=== PATIENT | male | born 1955 | race Two or more races ===

== ENCOUNTER 2024-11-19 02:40 | Inpatient (IN) | payer OTHER ==
[~2024-11-19] VITALS: Ht 170.2 cm; Wt 62.9 kg
--- NOTE | 2024-11-19 05:37 | ED.PDOC ---
History of Present Illness HPI Comments 69-year-old male brought in by EMS presents with a chief complaint of ulcers to bilateral legs, bilateral foot pain. 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 Patient has not seen a doctor for these and is not currently on antibiotics. Patient mentions that he called 911 because he has not been able to walk for the past 3 days due foot pain. Patient reports history of hypertension, diabetes, smoking, hyperlipidemia. He states he is not taking any medications at this time. Chief Complaint: Lower Extremity Time Seen by MD: 05:25 Reviewed Notes: Medications, Allergies Allergies: Coded Allergies: NO KNOWN ALLERGIES (Unverified , 11/19/24) Information Source: Patient Mode of Arrival: EMS Severity: Moderate Timing: Days Duration: Since onset Prehospital treatment: Facilities Officer Vital Signs Vital Signs Date Time Temp Pulse Resp B/P (MAP) Pulse Ox O2 Delivery O2 Flow Rate FiO2 11/19/24 09:14 71 15 108/54 11/19/24 06:32 98 11/19/24 06:01 97.6 97.6 Physical Exam General: Awake, alert and oriented. Patient is unkempt Skin: Skin in warm, dry and intact. Appropriate color for ethnicity. HEENT: The head is normocephalic and atraumatic. Conjunctivae are clear without exudates or hemorrhage. Sclera is non-icteric. EOM are intact. No signs of nystagmus. Eyelids are normal in appearance without swelling or lesions. Oral mucosa is pink and moist Neck: The neck is supple with normal range of motion. No JVD. Cardiac: Heart rate and rhythm are normal. No murmurs, gallops, or rubs are auscultated. Respiratory: No signs of respiratory distress. Lung sounds are clear in all lobes bilaterally without rales, rhonchi, or wheezes. Abdominal: Abdomen is soft, non-tender without distention. Bowel sounds are present and normoactive in all four quadrants. Extremities: Right lower extremity: Open wound with a purulent base, multiple ulcerations over thigh. Right foot: Left toe appears chronic. DP pulse nonpalpable. Foot is erythematous, tender to palpation. Toes are pale. Delayed capillary refill. Left lower extremity: Open wound with a purulent base, multiple ulcerations over thigh Left foot: Good DP pulse. Normal capillary refill. Neurological: The patient is awake, alert and oriented to person, place, and time with normal speech. Speech is clear. There is no facial asymmetry. Psychiatric: Appropriate mood and affect. Good judgement and insight. Review of Systems: As stated in HPI Past Medical History PAST MEDICAL HISTORY: DM, HTN Past Medical History (Other): Neuropathy Surgical History: Denies all surgeries Family History Family History: Reviewed,noncontributory to illness Social History Smoker: Cigar Alcohol: Denies ETOH Use Drugs: Heroin Lives In: Home Was a procedure done? Was a procedure done?: No Differential Dx Considerations may include: Cellulitis, abscess, arterial occlusion X-Ray, Labs, Meds, VS Vital Signs Date Time Temp Pulse Resp B/P (MAP) Pulse Ox O2 Delivery O2 Flow Rate FiO2 11/19/24 09:14 71 15 108/54 11/19/24 06:32 74 10 92/57 (69) 98 11/19/24 06:01 97.6 73 12 103/60 (74) 97 97.6 11/19/24 05:35 98.3 86 13 90/55 (67) 99 98.3 11/19/24 02:48 98.3 85 24 118/70 (86) 95 98.3 Lab Test 11/19/24 10:00 11/19/24 06:30 Range/Units White Blood Count 7.4 8.6 4.4-10.8 10^3/uL Red Blood Count 4.10 L 4.82 4.5-5.90 10^6/uL Hemoglobin 8.4 L 9.7 L 13.5-17.5 g/dL Hematocrit 26.7 #L 31.4 L 41.0-53.0 % Mean Corpuscular Volume 65.1 L 65.1 L 80.0-100.0 fL Mean Corpuscular Hemoglobin 20.4 L 20.2 L 28.0-32.0 pg Mean Corpuscular Hemoglobin Concent 31.3 L 31.0 L 32.0-36.0 g/dL Red Cell Distribution Width 20.9 H 21.0 H 11.8-14.3 % Platelet Count 282 344 140-450 10^3/uL Mean Platelet Volume 6.7 L 6.7 L 6.9-10.8 fL Neutrophils (%) (Auto) 80.2 H 81.8 H 37.0-80.0 % Lymphocytes (%) (Auto) 12.8 11.5 10.0-50.0 % Monocytes (%) (Auto) 6.0 5.8 0.0-12.0 % Eosinophils (%) (Auto) 0.5 0.5 0.0-7.0 % Basophils (%) (Auto) 0.5 0.4 0.0-2.0 % Neutrophils # (Auto) 6.0 7.0 1.6-8.6 10 ^3/uL Lymphocytes # (Auto) 1.0 1.0 0.4-5.4 10 ^3/uL Monocytes # (Auto) 0.4 0.5 0-1.3 10 ^3/uL Eosinophils # (Auto) 0 0 0-0.8 10 ^3/uL Basophils # (Auto) 0 0 0-0.2 10 ^3/uL Nucleated Red Blood Cells 0.0 0.1 % Platelet Estimate Pending Prothrombin Time Pending 10.9 9.3-11.8 sec Prothrombin Time INR Pending 1.03 0.9-1.15 Activated Partial Thromboplast Time Pending Sodium Level 134 L 136-145 mmol/L Potassium Level 3.1 L 3.5-5.1 mmol/L Chloride Level 103 98-107 mmol/L Carbon Dioxide Level 28 20-31 mmol/L Anion Gap 3 L 5-15 Blood Urea Nitrogen 13 9-23 mg/dL Creatinine 1.09 0.700-1.30 mg/dL Glomerular Filtration Rate Calc 73 >90 mL/min BUN/Creatinine Ratio 11.9 10.0-20.0 Serum Glucose 98 74-106 mg/dL Lactic Acid Level 1.2 0.4-2.0 mmol/L Calcium Level 8.7 8.7-10.4 mg/dL Total Bilirubin 0.3 0.2-1.0 mg/dL Aspartate Amino Transferase (AST) 13 13-40 U/L Alanine Aminotransferase (ALT) < 9 7-40 U/L Alkaline Phosphatase 80 46-116 U/L Total Protein 7.0 5.7-8.2 g/dL Albumin 3.0 L 3.2-4.8 g/dL Current Medications Medications (Trade) Dose Ordered Sig/Anny Route Start Time Stop Time Status Last Admin Sodium Chloride 1,000 ml @ 1,000 mls/hr Q1H ONCE IV 11/19/24 06:15 11/19/24 07:14 DC 11/19/24 08:56 Sodium Chloride 1,000 ml @ 130 mls/hr [id number] ONCE IV 11/19/24 06:15 11/19/24 13:56 11/19/24 08:56 Ceftriaxone Sodium 50 ml @ 100 mls/hr ONCE ONCE IV 11/19/24 08:30 11/19/24 08:59 DC 11/19/24 08:46 Vancomycin HCl 200 ml @ 200 mls/hr ONCE ONCE IV 11/19/24 08:30 11/19/24 09:29 DC 11/19/24 09:58 Ondansetron HCl (Zofran) 4 mg ONCE ONCE IV 11/19/24 09:00 11/19/24 09:01 DC 11/19/24 09:11 Morphine Sulfate 4 mg ONCE ONCE IV 11/19/24 09:00 11/19/24 09:01 DC 11/19/24 09:14 Time of 1ST Reevaluation: 05:55 Reevaluation 1ST: Unchanged Patient Education/Counseling: Need For Follow Up Family Education/Counseling: No Family Present Departure 1 Departure Time of Disposition: 10:34 (anshul [address] Dr , ok to admit to [facility].Patient presents with concern for sepsis and multiple abscesses in his legs and decreased arterial flow on CTA. Vascular surgery was consulted , patient was given antibiotics and started on heparin drip. We will admit patient for further workup and expert consultation) Impression: Primary Impression: Uncontrolled diabetes mellitus Qualified Codes: E11.65 - Type 2 diabetes mellitus with hyperglycemia Additional Impressions: Decreased pulses in feet Multiple abscesses of both legs Disposition: ADMITTED INPATIENT Admit to: [facility] Condition: Guarded Critical Care Note Critical Care Time?: Yes Critical care comment: Concern for arterial occlusion Authorized and Performed by: Jerica Banks MD Total critical care time: Approximately 44 minutes Due to a high probability of clinically significant, life threatening deterioration, the patient required my highest level of preparedness to intervene emergently and I personally spent this critical care time directly and personally managing the patient. This critical care time included obtaining a history; examining the patient; pulse oximetry; ordering and review of studies; arranging urgent treatment with development of a management plan; evaluation of patient's response to treatment; frequent reassessment; and, discussions with other providers. This critical care time was performed to assess and manage the high probability of imminent, life-threatening deterioration that could result in multi-organ failure. It was exclusive of separately billable procedures and treating other patients and teaching time. Please see my other sections and the rest of the note for further information on patient assessment and treatment. Stability Stability form required: No I personally scribed for GABRIELA RUBALCAAV MD ([email or web address]) on 11/19/24 at 05:37. Electronically submitted by Nura Johnson ([email or web address]). GABRIELA RUBALCAVA MD Nov 19, 2024 05:37 JERICA BANKS MD Nov 19, 2024 10:36
[2024-11-19 06:53] LABS: Basophils # (auto) 0 10 ^3/uL (0-0.2); Basophils % (auto) 0.4 % (0.0-2.0); Eosinophils # (auto) 0 10 ^3/uL (0-0.8); Eosinophils % (auto) 0.5 % (0.0-7.0); Hematocrit 31.4 % (41.0-53.0); Hemoglobin 9.7 g/dL (13.5-17.5); Lymphocytes % (auto) 11.5 % (10.0-50.0); Mean Corpuscular Hemoglobin 20.2 pg (28.0-32.0); Mean Corpuscular Volume 65.1 fL (80.0-100.0); Monocytes # (auto) 0.5 10 ^3/uL (0-1.3); Monocytes % (auto) 5.8 % (0.0-12.0); Neutrophils % (auto) 81.8 % (37.0-80.0); Nucleated Red Blood Cells % 0.1 %; Platelet Count (auto) 344 10^3/uL (140-450); Red Blood Cells 4.82 10^6/uL (4.5-5.90); White Blood Cell 8.6 10^3/uL (4.4-10.8)
[2024-11-19 06:58] LABS: INR 1.03 (0.9-1.15); Prothrombin Time 10.9 sec (9.3-11.8)
[2024-11-19 07:02] LABS: Alkaline Phosphatase 80 U/L (46-116); Anion Gap 3 (5-15); Aspartate Aminotransferase 13 U/L (13-40); BUN/Creatinine Ratio 11.9 (10.0-20.0); Bilirubin, Total 0.3 mg/dL (0.2-1.0); Blood Urea Nitrogen 13 mg/dL (9-23); Calcium 8.7 mg/dL (8.7-10.4); Carbon Dioxide 28 mmol/L (20-31); Chloride 103 mmol/L (98-107); Glucose 98 mg/dL (74-106)
[2024-11-19 07:04] LABS: Potassium 3.1 mmol/L (3.5-5.1); Sodium 134 mmol/L (136-145)
[2024-11-19 07:22] LABS: Alanine Aminotransferase < 9 U/L (7-40)
[2024-11-19] MEDS: VANCOMYCIN 1GM/200ML PM 200 ML IV ONE ×2 (08:38→09:58)
[2024-11-19] MEDS: cefTRIAXone 1GM/50ML D5W 50 ML IV ONE ×2 (08:39→08:46)
[2024-11-19] MEDS: HEPARIN SODIUM (PORCINE) 5000 UNITS/ML 1ML VIAL IV ONE ×2 (08:55→10:00)
[2024-11-19] MEDS: SODIUM CHLORIDE 0.9% 1,000 ML IV ONE ×3 (08:56→10:41)
[2024-11-19] MEDS: ONDANSETRON HCL 4 MG/2 ML VIAL IV ONE (09:11)
[2024-11-19] MEDS: MORPHINE SULFATE 4 MG/ML SYR/VIAL IV ONE (09:14)
--- NOTE | 2024-11-19 09:45 | DVH ---
Examination: CT CT ANGIO LOWER EXTREMITY CLINICAL HISTORY: Rule out acute limb ischemia, peripheral arterial disease Comparison: None Technique: Using helical technique, CT data from the infrarenal abdominal aorta through the toes was obtained during rapid IV contrast infusion. The examination was timed to the arterial system to gener ate a CT angiographic study. 3D images were generated at an independent work station. Dose reduction techniques included automated exposure control. Radiation Dose Information: CT Dose: CTDI volume is 7.08 mGy. Dose-length product is 886.9 mGy*cm Findings: Vascular: Vascular atherosclerotic calcifications are present of the aorta and its main branches. Inferior mesenteric artery is patent. Right lower extremity: Common iliac artery: Patent External iliac artery: Patent Internal iliac artery: Patent Common femoral artery: Patent Profunda femoral artery: Patent Superficial femoral artery: Patent Popliteal artery: Patent Anterior tibial artery: Patent Peroneal tibial trunk: Nonvisualization of flow Peroneal artery: Nonvisualization of flow Posterior tibial artery: Nonvisualization of flow Dorsalis pedis artery: Patent Left lower extremity: Common iliac artery: Patent External iliac artery: Patent Internal iliac artery: Patent Common femoral artery: Patent Profunda femoral artery: Patent Superficial femoral artery: Patent Popliteal artery: Patent Anterior tibial artery: Nonvisualization of flow Peroneal tibial trunk: Nonvisualization of flow Peroneal artery: Nonvisualization of flow Posterior tibial artery: Nonvisualization of flow Dorsalis pedis artery: Nonvisualization of flow Lymph nodes: No lymphadenopathy. Peritoneal cavity and surface: No free fluid. No pneumoperitoneum. Soft Tissues: Diffuse soft-tissue edema is present throughout the bilateral lower extremities. There are multiple bilateral abscesses and pockets of fluid and gas throughout the superficial subcutaneous soft-tissue of the bilateral thighs and around the right knee. Reproductive Organs: Normal. Bones: No acute fracture or aggressive osseous lesion. Left hip surgical hardware. Impression: Diffuse soft-tissue edema is present throughout the bilateral lower extremities. There are multiple b ilateral ill-defined abscesses and ill-defined pockets of fluid and gas throughout the superficial nugent bcutaneous soft-tissue of the bilateral thighs and around the right knee ([id number]-left. Fi ndings are suspicious for multifocal infection. Clinical correlation advised. Suboptimal visualization of arterial runoff in the bilateral lower extremity secondary to extensive a therosclerotic plaque and suboptimal timing of contrast bolus. There is nonvisualization of flow in t he right peroneal artery and right posterior tibial artery. Faint flow is present in the right dorsal is pedis artery. There is nonvisualization of flow in the left peroneal artery, posterior tibial artery and dorsalis p ada.
[2024-11-19 10:14] LABS: Basophils # (auto) 0 10 ^3/uL (0-0.2); Basophils % (auto) 0.5 % (0.0-2.0); Eosinophils # (auto) 0 10 ^3/uL (0-0.8); Mean Corpuscular Hemoglobin 20.4 pg (28.0-32.0); Monocytes # (auto) 0.4 10 ^3/uL (0-1.3); White Blood Cell 7.4 10^3/uL (4.4-10.8)
[2024-11-19 10:16] LABS: Eosinophils % (auto) 0.5 % (0.0-7.0); Hematocrit 26.7 % (41.0-53.0); Hemoglobin 8.4 g/dL (13.5-17.5); Lymphocytes % (auto) 12.8 % (10.0-50.0); Mean Corpuscular Hgb Conc. 31.3 g/dL (32.0-36.0); Mean Corpuscular Volume 65.1 fL (80.0-100.0); Neutrophils % (auto) 80.2 % (37.0-80.0); Platelet Count (auto) 282 10^3/uL (140-450)
[2024-11-19 10:17] LABS: Red Cell Distribution Width 20.9 % (11.8-14.3)
[2024-11-19 10:26] LABS: INR 1.03 (0.9-1.15); Partial Thromboplastin Time 31.1 SEC (24.5-34.5); Prothrombin Time 10.9 sec (9.3-11.8)
[2024-11-19 10:47] LABS: Anisocytosis Slight; Hypochromia Marked; Platelet Estimate Adequate
[2024-11-19] MEDS ORDERED: ONDANSETRON HCL 4 MG/2 ML VIAL IV PRN ×2 (11:45→14:00)
[2024-11-19] MEDS ORDERED: DOCUSATE SOD 100 MG CAP PO PRN (11:45)
[2024-11-19] MEDS ORDERED: NITROGLYCERIN 0.4 MG SL TAB SL PRN (11:45)
[2024-11-19] MEDS ORDERED: GLIP5TAB21 PO (11:48)
[2024-11-19] MEDS ORDERED: ROSU20TA56 PO (11:48)
[2024-11-19] MEDS ORDERED: LISI10TA34 PO (11:48)
[2024-11-19] MEDS ORDERED: DULO1CAP5 PO (11:48)
[2024-11-19] MEDS ORDERED: METF-370 PO (11:48)
[2024-11-19] MEDS ORDERED: VANCOMYCIN PER PHARMACY 0 MG IV SCH (12:00)
--- NOTE | 2024-11-19 12:19 | DVHCONRES ---
Date Seen: Nov 19, 2024 Resident Creating Document: HAY SEGOVIA Jr., MD Referring Physician er Reason for Consultation Right thigh abscess, peripheral vascular disease, right ischemic 5th toe History of Present Illness 69-year-old male brought in by EMS presents with a chief complaint of ulcers to bilateral legs, bilateral foot pain. 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 Patient has not seen a doctor for these and is not currently on antibiotics. Patient mentions that he called 911 because he has not been able to walk for the past 3 days due foot pain. Patient reports history of hypertension, diabetes, smoking, hyperlipidemia. He states he is not taking any medications at this time. 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 He also has neuropathy in the feet. He has a discolored right toe which is very painful. Past Medical History Heroin abuse hypertension, diabetes, smoking, hyperlipidemia. Allergies: Coded Allergies: NO KNOWN ALLERGIES (Unverified , 11/19/24) Home Meds Reported Medications Metformin Hydrochloride (Metformin Hcl) 500 Mg Tab, 1 TAB PO BID 11/19/24 Lisinopril (Lisinopril) 10 Mg Tab, 1 TAB PO DAILY 11/19/24 Glipizide (Glipizide) 5 Mg Tab, 1 TAB PO DAILY 11/19/24 Duloxetine HCl (Duloxetine HCl) 30 Mg Cap, 2 CAP PO DAILY 11/19/24 Rosuvastatin Calcium (Rosuvastatin Calcium) 20 Mg Tab, 1 TAB PO HS 11/19/24 Current Medications Current Medications Medications (Trade) Dose Ordered Sig/Anny Route PRN Reason Start Time Stop Time Status Last Admin Heparin Sodium/ Dextrose 250 ml @ 11.016 mls/ hr [id number] IV 11/19/24 10:00 UNV Sodium Chloride 1,000 ml @ 75 mls/hr [id number] IV 11/19/24 11:45 UNV Acetaminophen/ Hydrocodone Bitart ([place] 5/325MG Tab) 1 tab Q4HP PRN PO MODERATE PAIN (4-6 PAIN SCALE) 11/19/24 11:45 UNV Ondansetron HCl (Zofran) 4 mg Q4HP PRN IV NAUSEA / VOMITING 11/19/24 11:45 UNV Docusate Sodium (Colace Capsule) 100 mg BIDPRN PRN PO FOR CONSTIPATION 11/19/24 11:45 UNV Acetaminophen (Tylenol Tablet) 650 mg Q6HP PRN PO PAIN SCALE 1-3 OR TEMP>100.4 11/19/24 11:45 UNV Morphine Sulfate 2 mg Q4HPRN PRN IV SEVERE PAIN (7-10 PAIN SCALE) 11/19/24 11:45 UNV Nitroglycerin (Ntrostat Sublingual) 0.4 mg Q5MINP PRN SL FOR CHEST PAIN 11/19/24 11:45 UNV Morphine Sulfate 2 mg Q30M PRN IV FOR CHEST PAIN 11/19/24 11:45 UNV Duloxetine HCl (Cymbalta Capsule) 60 mg DAILY PO 11/20/24 10:00 UNV Glipizide (Glucotrol Tablet) 5 mg DAILY PO 11/20/24 10:00 UNV Patient Own Medication 1 tab DAILY PO 11/20/24 10:00 11/19/24 12:05 DC Patient Own Medication 1 tab HS PO 11/19/24 22:00 UNV Vancomycin HCl 0 ml @ 0 mls/hr UD IV 11/19/24 12:00 UNV Cefepime HCl 50 ml @ 12.5 mls/hr Q12HR IV 11/19/24 22:00 UNV Review of Systems All systems reviewed otherwise negative what is in HPI. Vital Signs Vital Signs Date Time Temp Pulse Resp B/P (MAP) Pulse Ox O2 Delivery O2 Flow Rate FiO2 11/19/24 11:38 97.1 65 12 126/51 (76) 96 97.1 Physical Exam Head eyes ears nose and throat exam eyes are nonicteric conjunctiva is pink neck was supple no JVD no lymphadenopathy no carotid bruits lungs are clear to auscultation heart was regular rate and rhythm abdomen is soft nontender with no pulsatile abdominal masses. Lower extremities has multiple track wounds on the bilateral thighs. With subcutaneous gas of the right thigh and purulent drainage as well. His right 5th toe is ischemic. He has diminished pulses in both lower extremities. Labs/Diagnostic Data Labs Test 11/19/24 10:00 11/19/24 06:30 Range/Units White Blood Count 7.4 4.4-10.8 10^3/uL Red Blood Count 4.10 L 4.5-5.90 10^6/uL Hemoglobin 8.4 L 13.5-17.5 g/dL Hematocrit 26.7 #L 41.0-53.0 % Mean Corpuscular Volume 65.1 L 80.0-100.0 fL Mean Corpuscular Hemoglobin 20.4 L 28.0-32.0 pg Mean Corpuscular Hemoglobin Concent 31.3 L 32.0-36.0 g/dL Red Cell Distribution Width 20.9 H 11.8-14.3 % Platelet Count 282 140-450 10^3/uL Mean Platelet Volume 6.7 L 6.9-10.8 fL Neutrophils (%) (Auto) 80.2 H 37.0-80.0 % Lymphocytes (%) (Auto) 12.8 10.0-50.0 % Monocytes (%) (Auto) 6.0 0.0-12.0 % Eosinophils (%) (Auto) 0.5 0.0-7.0 % Basophils (%) (Auto) 0.5 0.0-2.0 % Neutrophils # (Auto) 6.0 1.6-8.6 10 ^3/uL Lymphocytes # (Auto) 1.0 0.4-5.4 10 ^3/uL Monocytes # (Auto) 0.4 0-1.3 10 ^3/uL Eosinophils # (Auto) 0 0-0.8 10 ^3/uL Basophils # (Auto) 0 0-0.2 10 ^3/uL Nucleated Red Blood Cells 0.0 % Platelet Estimate Adequate Hypochromasia (manual) Marked Poikilocytosis (manual) Slight Anisocytosis (manual) Slight Microcytosis Marked Schistocytes Few Prothrombin Time 10.9 9.3-11.8 sec Prothrombin Time INR 1.03 0.9-1.15 Activated Partial Thromboplast Time 31.1 24.5-34.5 SEC Sodium Level 134 L 136-145 mmol/L Potassium Level 3.1 L 3.5-5.1 mmol/L Chloride Level 103 98-107 mmol/L Carbon Dioxide Level 28 20-31 mmol/L Anion Gap 3 L 5-15 Blood Urea Nitrogen 13 9-23 mg/dL Creatinine 1.09 0.700-1.30 mg/dL Glomerular Filtration Rate Calc 73 >90 mL/min BUN/Creatinine Ratio 11.9 10.0-20.0 Serum Glucose 98 74-106 mg/dL Lactic Acid Level 1.2 0.4-2.0 mmol/L Calcium Level 8.7 8.7-10.4 mg/dL Total Bilirubin 0.3 0.2-1.0 mg/dL Aspartate Amino Transferase (AST) 13 13-40 U/L Alanine Aminotransferase (ALT) < 9 7-40 U/L Alkaline Phosphatase 80 46-116 U/L Total Protein 7.0 5.7-8.2 g/dL Albumin 3.0 L 3.2-4.8 g/dL Examination: CT CT ANGIO LOWER EXTREMITY CLINICAL HISTORY: Rule out acute limb ischemia, peripheral arterial disease Comparison: None Technique: Using helical technique, CT data from the infrarenal abdominal aorta through the toes was obtained during rapid IV contrast infusion. The examination was timed to the arterial system to generate a CT angiographic study. 3D images were generated at an independent work station. Dose reduction techniques included automated exposure control. Radiation Dose Information: CT Dose: CTDI volume is 7.08 mGy. Dose-length product is 886.9 mGy*cm Findings: Vascular: Vascular atherosclerotic calcifications are present of the aorta and its main branches. Inferior mesenteric artery is patent. Right lower extremity: Common iliac artery: Patent External iliac artery: Patent Internal iliac artery: Patent Common femoral artery: Patent Profunda femoral artery: Patent Superficial femoral artery: Patent Popliteal artery: Patent Anterior tibial artery: Patent Peroneal tibial trunk: Nonvisualization of flow Peroneal artery: Nonvisualization of flow Posterior tibial artery: Nonvisualization of flow Dorsalis pedis artery: Patent Left lower extremity: Common iliac artery: Patent External iliac artery: Patent Internal iliac artery: Patent Common femoral artery: Patent Profunda femoral artery: Patent Superficial femoral artery: Patent Popliteal artery: Patent Anterior tibial artery: Nonvisualization of flow Peroneal tibial trunk: Nonvisualization of flow Peroneal artery: Nonvisualization of flow Posterior tibial artery: Nonvisualization of flow Dorsalis pedis artery: Nonvisualization of flow Lymph nodes: No lymphadenopathy. Peritoneal cavity and surface: No free fluid. No pneumoperitoneum. Soft Tissues: Diffuse soft-tissue edema is present throughout the bilateral lower extremities. There are multiple bilateral abscesses and pockets of fluid and gas throughout the superficial subcutaneous soft-tissue of the bilateral thighs and around the right knee. Reproductive Organs: Normal. Bones: No acute fracture or aggressive osseous lesion. Left hip surgical hardware. Impression: Diffuse soft-tissue edema is present throughout the bilateral lower extremities. There are multiple bilateral ill-defined abscesses and ill-defined pockets of fluid and gas throughout the superficial subcutaneous soft-tissue of the bilateral thighs and around the right knee ([id number]-left. Findings are suspicious for multifocal infection. Clinical correlation advised. Suboptimal visualization of arterial runoff in the bilateral lower extremity secondary to extensive atherosclerotic plaque and suboptimal timing of contrast bolus. There is nonvisualization of flow in the right peroneal artery and right posterior tibial artery. Faint flow is present in the right dorsalis pedis artery. There is nonvisualization of flow in the left peroneal artery, posterior tibial artery and dorsalis pedis. Assessment Right thigh abscess, severe peripheral vascular disease, right ischemic 5th toe Plan operative debridement of the right thigh today. Plan for right leg arteriogram possible endovascular revascularization on November 20, 2024. Based on the procedure most likely we will need toe amputation in the near future. Patient understands the risks benefits of the procedure and willing to proceed. Plan/Recommendation Right thigh abscess, severe peripheral vascular disease, right ischemic 5th toe Plan operative debridement of the right thigh today. Plan for right leg arteriogram possible endovascular revascularization on November 20, 2024. Based on the procedure most likely we will need toe amputation in the near future. Patient understands the risks benefits of the procedure and willing to proceed. Plan discussed with: Patient HAY SEGOVIA Jr., MD Nov 19, 2024 12:19
[2024-11-19] MEDS: MORPHINE SULFATE INJ 2 MG/ml SYRG IV PRN (12:20)
[2024-11-19 12:21] VITALS: PULSE 63; RESP 9; O2SAT 97
[2024-11-19] MEDS ORDERED: KETAMINE 50mg/ML 1ml syringe ONE (12:22)
[2024-11-19] MEDS ORDERED: fentaNYL CITRATE 100 MCG/2 ML VL ONE (12:22)
[2024-11-19] MEDS ORDERED: LIDOCAINE 1% INJ PF 5ML AMP ONE (12:22)
[2024-11-19] MEDS ORDERED: GLYCOPYRROLATE 0.2 MG/ML 1ML VIAL ONE (12:22)
[2024-11-19] MEDS ORDERED: ONDANSETRON HCL 4 MG/2 ML VIAL ONE (12:22)
[2024-11-19] MEDS ORDERED: KETOROLAC TROMETH 30 MG/ML 1ML VIAL ONE (12:22)
[2024-11-19] MEDS ORDERED: PROPOFOL 10 MG/ML 20 ML IV ONE (12:22)
[2024-11-19] MEDS ORDERED: DexAMETHasone SOD PHOS 10MG/1ML VIAL INJ ONE (12:22)
[2024-11-19 12:26] LABS: Urine Bacteria None Seen /hpf (None Seen)
[2024-11-19] MEDS: ceFAZolin 1GM VL ONE (12:28)
--- NOTE | 2024-11-19 12:34 | DVHHP2 ---
History of Present Illness Reason for Visit: Lower extremity pain History of Present Illness Parveen Elam is a 69-year-old male with past medical history of hypertension, hyperlipidemia, diabetes, and peripheral neuropathy, who came in due to bilateral lower extremity pain. He has a history of peripheral neuropathy and states the pain from his neuropathy is why he came to the hospital. He states that he usually walks and cares for himself, but he has not been able to ambulate the last 3-4 days due to pain. Patient is a daily heroin user for years. He has multiple abscess' on bilateral thighs from injection sites. Two toes on his right foot are becoming necrotic from lack of blood flow. CT scan completed by ER shows peripheral artery occlusions as well as multiple abscess with gas. He has bilateral open wounds on his thighs, and purulent drainage from wound to right thigh. Vascular surgery has been consulted by ER. I spoke with vascular surgery, he went and saw the patient and will be taking him to OR today to an I&D of right thigh. He plans on taking to sanitation laborer on Monday for angiogram, and OR on for toe amputation. Cardiovascular: HTN, hyperipidemia ENTREPRENEUR: Periperal neuropathy Endocrine: Diabetes Past Surgical History: Other (Left leg) Smoke: <1 pack per day (cigars) ALCOHOL: none Drugs: Heroin Lives: Alone (states he has a friend who helps him) Domestic Violence: Neg Review of Systems Constitutional: No: Fever, Chills, Sweats, Weakness, Malaise, Other Eyes: No: Pain, Vision change, Conjunctivae inflammation, Eyelid inflammation, Other, Redness ENT: No: Ear pain, Ear discharge, Nose pain, Nose discharge, Nose congestion, Mouth pain, Mouth swelling, Throat pain, Throat swelling, Other Respiratory: No: Cough, Dry, Shortness of breath, SOB with excertion, Wheezing, Hemoptysis, Pleuritic Pain, Sputum, Wheezing, Other Cardiovascular: No: Chest Pain, Palpitations, Orthopnea, Paroxysmal Noc. Dyspnea, Edema, Lt Headedness, Other Gastrointestinal: No: Nausea, Vomiting, Abdominal Pain, Diarrhea, Constipation, Melena, Hematochezia, Other Genitourinary: No Dysuria, No Frequency, No Incontinence, No Hematuria, No Retention, No Other Musculoskeletal: leg pain (bilateral), foot pain (bilateral); No: other, neck pain, shoulder pain, arm pain, back pain, hand pain Skin: No: Rash, Lesions, Jaundice, Bruising, Other Neurological: No: Weakness, Numbness, Incoordination, Change in speech, Confusion, Seizures, Other Allergies: Coded Allergies: NO KNOWN ALLERGIES (Unverified , 11/19/24) Medications Current Medications Medications Dose Ordered Sig/Anny Route Start Time Stop Time Status Last Admin Dose Admin Heparin Sodium/ Dextrose 250 ml @ 11.016 mls/ hr [id number] IV 11/19/24 10:00 UNV Sodium Chloride 1,000 ml @ 75 mls/hr [id number] IV 11/19/24 11:45 UNV Acetaminophen/ Hydrocodone Bitart 1 tab Q4HP PRN PO 11/19/24 11:45 UNV Ondansetron HCl 4 mg Q4HP PRN IV 11/19/24 11:45 UNV Docusate Sodium 100 mg BIDPRN PRN PO 11/19/24 11:45 UNV Acetaminophen 650 mg Q6HP PRN PO 11/19/24 11:45 UNV Morphine Sulfate 2 mg Q4HPRN PRN IV 11/19/24 11:45 UNV Nitroglycerin 0.4 mg Q5MINP PRN SL 11/19/24 11:45 UNV Morphine Sulfate 2 mg Q30M PRN IV 11/19/24 11:45 UNV Duloxetine HCl 60 mg DAILY PO 11/20/24 10:00 UNV Glipizide 5 mg DAILY PO 11/20/24 10:00 UNV Patient Own Medication 1 tab DAILY PO 11/20/24 10:00 UNV Patient Own Medication 1 tab HS PO 11/19/24 22:00 UNV Exam Vital Signs Vital Signs Date Time Temp Pulse Resp B/P (MAP) Pulse Ox O2 Delivery O2 Flow Rate FiO2 11/19/24 11:38 97.1 65 12 126/51 (62) 96 97.1 General Appearance: Alert, Oriented X3, Cooperative, moderate distress HEENT: Atraumatic, PERRLA Respiratory: Clear to auscultation, Normal air movement Cardiovascular: Regular rate, Normal S1, Normal S2 Abdominal: Normal bowel sounds, Soft, No tenderness Extremities: No clubbing Neuro: Normal speech, Other (states he has not been able to ambulate due to pain for about 3-4 days) Psych/Mental Status: Mental status NL, Mood NL Labs/Xrays Labs Test 11/19/24 10:00 11/19/24 06:30 Range/Units White Blood Count 7.4 4.4-10.8 10^3/uL Red Blood Count 4.10 L 4.5-5.90 10^6/uL Hemoglobin 8.4 L 13.5-17.5 g/dL Hematocrit 26.7 #L 41.0-53.0 % Mean Corpuscular Volume 65.1 L 80.0-100.0 fL Mean Corpuscular Hemoglobin 20.4 L 28.0-32.0 pg Mean Corpuscular Hemoglobin Concent 31.3 L 32.0-36.0 g/dL Red Cell Distribution Width 20.9 H 11.8-14.3 % Platelet Count 282 140-450 10^3/uL Mean Platelet Volume 6.7 L 6.9-10.8 fL Neutrophils (%) (Auto) 80.2 H 37.0-80.0 % Lymphocytes (%) (Auto) 12.8 10.0-50.0 % Monocytes (%) (Auto) 6.0 0.0-12.0 % Eosinophils (%) (Auto) 0.5 0.0-7.0 % Basophils (%) (Auto) 0.5 0.0-2.0 % Neutrophils # (Auto) 6.0 1.6-8.6 10 ^3/uL Lymphocytes # (Auto) 1.0 0.4-5.4 10 ^3/uL Monocytes # (Auto) 0.4 0-1.3 10 ^3/uL Eosinophils # (Auto) 0 0-0.8 10 ^3/uL Basophils # (Auto) 0 0-0.2 10 ^3/uL Nucleated Red Blood Cells 0.0 % Platelet Estimate Adequate Hypochromasia (manual) Marked Poikilocytosis (manual) Slight Anisocytosis (manual) Slight Microcytosis Marked Schistocytes Few Prothrombin Time 10.9 9.3-11.8 sec Prothrombin Time INR 1.03 0.9-1.15 Activated Partial Thromboplast Time 31.1 24.5-34.5 SEC Sodium Level 134 L 136-145 mmol/L Potassium Level 3.1 L 3.5-5.1 mmol/L Chloride Level 103 98-107 mmol/L Carbon Dioxide Level 28 20-31 mmol/L Anion Gap 3 L 5-15 Blood Urea Nitrogen 13 9-23 mg/dL Creatinine 1.09 0.700-1.30 mg/dL Glomerular Filtration Rate Calc 73 >90 mL/min BUN/Creatinine Ratio 11.9 10.0-20.0 Serum Glucose 98 74-106 mg/dL Lactic Acid Level 1.2 0.4-2.0 mmol/L Calcium Level 8.7 8.7-10.4 mg/dL Total Bilirubin 0.3 0.2-1.0 mg/dL Aspartate Amino Transferase (AST) 13 13-40 U/L Alanine Aminotransferase (ALT) < 9 7-40 U/L Alkaline Phosphatase 80 46-116 U/L Total Protein 7.0 5.7-8.2 g/dL Albumin 3.0 L 3.2-4.8 g/dL Examination: CT CT ANGIO LOWER EXTREMITY Findings: Vascular: Vascular atherosclerotic calcifications are present of the aorta and its main branches. Inferior mesenteric artery is patent. Right lower extremity: Common iliac artery: Patent External iliac artery: Patent Internal iliac artery: Patent Common femoral artery: Patent Profunda femoral artery: Patent Superficial femoral artery: Patent Popliteal artery: Patent Anterior tibial artery: Patent Peroneal tibial trunk: Nonvisualization of flow Peroneal artery: Nonvisualization of flow Posterior tibial artery: Nonvisualization of flow Dorsalis pedis artery: Patent Left lower extremity: Common iliac artery: Patent External iliac artery: Patent Internal iliac artery: Patent Common femoral artery: Patent Profunda femoral artery: Patent Superficial femoral artery: Patent Popliteal artery: Patent Anterior tibial artery: Nonvisualization of flow Peroneal tibial trunk: Nonvisualization of flow Peroneal artery: Nonvisualization of flow Posterior tibial artery: Nonvisualization of flow Dorsalis pedis artery: Nonvisualization of flow Lymph nodes: No lymphadenopathy. Peritoneal cavity and surface: No free fluid. No pneumoperitoneum. Soft Tissues: Diffuse soft-tissue edema is present throughout the bilateral lower extremities. There are multiple bilateral abscesses and pockets of fluid and gas throughout the superficial subcutaneous soft-tissue of the bilateral thighs and around the right knee. Reproductive Organs: Normal. Bones: No acute fracture or aggressive osseous lesion. Left hip surgical hardware. Impression: Diffuse soft-tissue edema is present throughout the bilateral lower extremities. There are multiple bilateral ill-defined abscesses and ill-defined pockets of fluid and gas throughout the superficial subcutaneous soft-tissue of the bilateral thighs and around the right knee ([id number]. Findings are suspicious for multifocal infection. Clinical correlation advised. Suboptimal visualization of arterial runoff in the bilateral lower extremity secondary to extensive atherosclerotic plaque and suboptimal timing of contrast bolus. There is nonvisualization of flow in the right peroneal artery and right posterior tibial artery. Faint flow is present in the right dorsalis pedis artery. There is nonvisualization of flow in the left peroneal artery, posterior tibial artery and dorsalis pedis. Assessment/Plan Assessment/Plan Assessment: Multiple abscesses of both legs, Occlusion of peroneal artery, posterior tibial artery and dorsalis pedis, Peripheral artery disease, Hypokalemia, Heroin dependance, Malnutrition, Diabetes, Hypertension, Hyperlipidemia, Peripheral neuropathy, Plan: Admit to Tele, Vascular consult, NPO, Will go to OR today for debridement, Possible sanitation laborer tomorrow, Possible OR Monday for toe amputation, IV hydration, IV antibiotics, Potassium replacement, Manage/Monitor electrolytes closely, Social service consult, Home medications reconciled, Home antihypertensive medication held due to hypotension, Plan discussed with: Patient My Orders Orders - DANIEL AARON Procedure Category Date Status Time Admit ADMIT 11/19/24 Transmitted 11:39 Code Status CODE 11/19/24 Transmitted 11:39 Sodium Chloride 0.9% PHA 11/19/24 Logged 11:45 Hydrocodone-Acet PHA 11/19/24 Logged 5/325mg Tab (Christine 11:45 Ondansetron Hcl PHA 11/19/24 Logged (Zofran) 11:45 Docusate Sodium PHA 11/19/24 Logged Capsule (Colace 11:45 Complete Blood Count LAB 11/20/24 Verified 04:00 Comprehensive LAB 11/20/24 Verified Metabolic Panel 04:00 Npo (Nothing By DIET 11/19/24 Transmitted Mouth) Diet Lunch Echo 2d Mode Cardiac US 11/19/24 Logged DOP 11:39 Condition: Critical KEON 11/19/24 In Process 11:39 Acetaminophen Tablet PHA 11/19/24 Logged (Tylenol Tablet) 11:45 Morphine Sulfate PHA 11/19/24 Logged Injection 11:45 Nitroglycerin PHA 11/19/24 Logged Sublingual (Ntrostat 11:45 Morphine Sulfate PHA 11/19/24 Logged Injection 11:45 Stat Ekg For Chest [facility] 11/19/24 In Process Pain 11:39 Notify Md Of Changes [facility] 11/19/24 In Process From Base 11:39 Computer Support Analyst For [facility] 11/19/24 In Process 24 Hours 11:39 Emergency Dysrhythmia [facility] 11/19/24 In Process Protocol 11:39 Rhythm Strips Once [facility] 11/19/24 In Process Every Shift 11:39 Oxygen By Nasal RT 11/19/24 Transmitted Cannula 11:39 Duloxetine Hcl [facility] 11/20/24 Logged Capsule (Cymbalta 10:00 Glipizide Tablet PHA 11/20/24 Logged (Glucotrol Tablet) 10:00 (Nf) Lisinopril [facility] 11/20/24 Logged 10:00 (Nf) Rosuvastatin [facility] 11/19/24 Logged Calcium 22:00 Date of Service: Nov 19, 2024 Billing Provider: DANIEL AARON Common Visit Codes: [id number] INP/OBS CARE (HIGH) DANIEL AARON Nov 19, 2024 12:34
[2024-11-19 12:42] LABS: Urine Blood 2+ /uL (Negative); Urine Clarity Turbid (Clear); Urine Color Yellow (Yellow); Urine Protein, UAD 1+ (Negative); Urine Squamous Epithelial Cell FEW /hpf (<5); Urine Urobilinogen 2 mg/dL (Negative); Urine WBC 17 /HPF (0-3)
[2024-11-19] MEDS: BUPIVACAINE HCL 0.25% P/F 10 ML VIAL ONE (12:42)
[2024-11-19 12:44] LABS: Cannabinoid Screen, Urine Neg (NEGATIVE); Phencyclidine Screen, Urine Neg (NEGATIVE)
[2024-11-19] MEDS: CELECOXIB 100 MG CAP PO ONE (12:45)
[2024-11-19] MEDS: ACETAMINOPHEN IV 1000 MG/100ML (10MG/ML) IV ONE (12:45)
[2024-11-19] MEDS: GABAPENTIN 300 MG CAP PO ONE (12:45)
[2024-11-19] MEDS: GABAPENTIN 300 MG CAP ONE (12:46)
[2024-11-19] MEDS: CELECOXIB 100 MG CAP ONE (12:46)
[2024-11-19 12:47] LABS: Amphetamine Screen, Urine Neg (NEGATIVE); Barbiturate Scree,Urine Neg (NEGATIVE); Benzodiazephine Screen, Urine Neg (NEGATIVE); Cocaine Screen, Urine Neg (NEGATIVE); Opiate Scree,Urine Pos (NEGATIVE)
[2024-11-19] MEDS: ACETAMINOPHEN IV 100 ML IV ONE (12:47)
[2024-11-19] MEDS: ceFAZolin 2 GM/D5W50ml 50 ML IV ONE (12:47)
--- NOTE | 2024-11-19 13:38 | DVHOP2 ---
Operative Report - 2 Report Details Date: 11/19/24 Preop Diagnosis: Right complex thigh abscess Postop Diagnosis: Necrotizing fasciitis Surgeon: Hugh Bustamante MD Anesthesiologist: Jovi Anesthesia: Mac Consent: The patient was informed of the risks and benefits of the procedure. These include but are not limited to complications of anesthesia, postoperative infection, incomplete relief of symptoms, recurrence of symptoms, damage to blood vessels, nerves and tendons, deep venous thrombosis, pulmonary embolism and possible need for repeat surgery in the future. Name of Procedure Performed Right thigh debridement down to and including muscle Procedure Details Procedure Details: Patient was identified in preop hold area is being . He was consented in. By myself he was brought back to the operating room placed on operating table in supine position after adequate induction anesthesia and advised and time-out the right leg was prepped and draped in normal surgical fashion. A incision was made over top of a old IV drug use Site necrotic ulcer the wound was excised down to and including the quadricep muscle on the anterior aspect of the muscle proximally a 10 cm x 5 cm incision was made to remove the excess infected tissue below was murky fluid which was sent off for culture there was a large cavity that wrapped across the front of his quadriceps down to the level of the knee. There was a 2nd abscess cavity in the medial thigh. Which a proximally 5 cm incision was made the cavity was drained as well both wounds were then pulse irrigated with antibiotic solution. Once this was complete hemostasis was obtained with Bovie cauterization. The wounds were then packed with a Betadine-soaked Kerlix. Sterile wrap was applied including ABDs Kerlix and Austin wrap. Patient was taken the PACU in stable condition . Specimen: culture Condition Good Disposition Pacu HUGH BUSTAMANTE Jr., MD Nov 19, 2024 13:38
[2024-11-19 13:41] VITALS: O2SAT 97
[2024-11-19] MEDS ORDERED: NALOXONE HCL 0.4 MG/ML VIAL IV PRN (14:00)
[2024-11-19] MEDS ORDERED: fentaNYL CITRATE 100 MCG/2 ML VL IV PRN (14:00)
[2024-11-19] MEDS: HYDROmorphone HCL 2 MG/ML VL/or syr ONE (14:00)
[2024-11-19] MEDS ORDERED: FLUMAZENIL 0.1 MG/ML INJ 10ML MDV IV PRN (14:00)
[2024-11-19] MEDS ORDERED: DEXTROSE (50%) 50ML SYRG IV PRN (14:00)
[2024-11-19] MEDS ORDERED: hydrALAZINE HCL 20 MG/ML VL IV PRN (14:00)
[2024-11-19] MEDS: HYDROmorphone HCL 2 MG/ML VL/or syr IV PRN (14:00)
[2024-11-19] MEDS ORDERED: ePHEDrine SULFATE 50 MG/ML AMP IV PRN (14:00)
[2024-11-19 16:05] VITALS: BP 138/52; PULSE 57; RESP 17; RESP 18; TEMP 97.2; O2SAT 97
--- NOTE | 2024-11-19 16:22 | CONS ---
Pharmacy Clinical Information: NEW RATE HEP DRIP 11 ML/HR STARTS TODAY 11/19 @1600 FARZANA POSADA AWARE TO START DRIP 11 ML/HR AND NEXT APTT SCHEDULED 6 HOURS FROM TIME NEW HEP RATE START TIME GIDEON DOW PHARMACIST Nov 19, 2024 16:22
[2024-11-19] MEDS: InsuLIN REG 1unit/0.01ml Soln (100units/ml) SC SCH ×2 (17:00→22:06)
[2024-11-19] MEDS: ACCU-CHEK COMFORT CURVE STRIP VI SCH (17:00)
[2024-11-19] MEDS: POTASSIUM CHLORIDE 40 MEQ, LIDOCAINE 1% (LOCAL ANESTH.) 4 ML in SODIUM CHL 0.9% 250 ML IV ONE (17:30)
[2024-11-19] MEDS: HEPARIN DRIP/D5W 100UNITS/ML 250 ML IV SCH (18:04)
[2024-11-19 20:00] VITALS: PULSE 74
[2024-11-19] MEDS: HYDROcodone-ACET 5/325MG TAB PO PRN (20:33)
[2024-11-19 21:00] VITALS: BP 106/47; PULSE 63; RESP 17; TEMP 97.8; O2SAT 98
[2024-11-19] MEDS: ATORVASTATIN 20 MG TAB PO SCH (21:35)
[2024-11-19] MEDS: VANCOMYCIN 750MG KIT 100 ML IV SCH (21:36)
[2024-11-19] MEDS ORDERED: PATIENTS OWN MEDICATION (Rosuvastatin Calcium 1 TAB) PO SCH (22:00)
[2024-11-19] MEDS: SODIUM CHLORIDE 0.9% 1,000 ML IV SCH (22:05)
[2024-11-19] MEDS: CEFEPIME 2GM/50ML NS 50 ML IV SCH (22:52)
[2024-11-19] MEDS: NALOXONE HCL 0.4 MG/ML VIAL IV ONE (23:54)
[2024-11-20] VITALS (9 sets, daily range): BP systolic 105–155; BP diastolic 54–68; PULSE 47–83; RESP 15–20; TEMP 97.4–98.2; O2SAT 98–100
[2024-11-20 01:49] LABS: INR 1.01 (0.9-1.15); Partial Thromboplastin Time 41.4 SEC (24.5-34.5); Prothrombin Time 10.7 sec (9.3-11.8)
[2024-11-20] MEDS: HEPARIN DRIP/D5W 100UNITS/ML 250 ML IV SCH ×2 (02:16→23:22)
[2024-11-20] MEDS ORDERED: PATIENTS OWN MEDICATION (Lisinopril 1 TAB) PO SCH (10:00)
[2024-11-20] MEDS: DULoxetine HCL 30 MG CAP PO SCH (10:07)
[2024-11-20] MEDS: glipiZIDE 5 MG TAB PO SCH (10:20)
[2024-11-20 11:01] LABS: Basophils # (auto) 0 10 ^3/uL (0-0.2); Basophils % (auto) 0.1 % (0.0-2.0); Eosinophils # (auto) 0 10 ^3/uL (0-0.8); Hematocrit 32.4 % (41.0-53.0); Hemoglobin 9.6 g/dL (13.5-17.5); Lymphocytes # (auto) 1.4 10 ^3/uL (0.4-5.4); Lymphocytes % (auto) 12.6 % (10.0-50.0); Mean Corpuscular Hemoglobin 20.5 pg (28.0-32.0); Mean Corpuscular Hgb Conc. 29.5 g/dL (32.0-36.0); Mean Corpuscular Volume 69.3 fL (80.0-100.0); Monocytes # (auto) 0.7 10 ^3/uL (0-1.3); Monocytes % (auto) 6.4 % (0.0-12.0); Neutrophils # (auto) 8.8 10 ^3/uL (1.6-8.6); Neutrophils % (auto) 80.9 % (37.0-80.0); Nucleated Red Blood Cells % 0.1 %; Platelet Count (auto) 316 10^3/uL (140-450); Red Blood Cells 4.67 10^6/uL (4.5-5.90); White Blood Cell 10.9 10^3/uL (4.4-10.8)
[2024-11-20 11:03] LABS: Red Cell Distribution Width 21.6 % (11.8-14.3)
[2024-11-20 11:14] LABS: INR 0.98 (0.9-1.15); Partial Thromboplastin Time 59.7 SEC (24.5-34.5); Prothrombin Time 10.4 sec (9.3-11.8)
[2024-11-20 11:17] LABS: Alkaline Phosphatase 69 U/L (46-116); Anion Gap 4 (5-15); BUN/Creatinine Ratio 14.7 (10.0-20.0); Blood Urea Nitrogen 16 mg/dL (9-23); Carbon Dioxide 23 mmol/L (20-31); Chloride 107 mmol/L (98-107); Potassium 3.9 mmol/L (3.5-5.1); Total Protein 6.7 g/dL (5.7-8.2)
[2024-11-20 11:18] LABS: Alanine Aminotransferase < 9 U/L (7-40); Albumin 2.8 g/dL (3.2-4.8); Aspartate Aminotransferase 11 U/L (13-40); Bilirubin, Total < 0.2 mg/dL (0.2-1.0); Calcium 8.5 mg/dL (8.7-10.4); Glucose 109 mg/dL (74-106); Sodium 134 mmol/L (136-145)
[2024-11-20] MEDS: MORPHINE SULFATE INJ 2 MG/ml SYRG IV PRN (12:08)
--- NOTE | 2024-11-20 13:29 | DVHPN2 ---
Progress Note Date Seen: Nov 20, 2024 Medical Necessity Reason Pt with a Central, PICC or Fol: No Subjective Patient reports: No new complaints Review of Systems: HEENT:Normal, CVS:Normal, RESPIRATORY:Normal, GI:Normal, :Normal, MSK:Normal, NEURO:Normal Objective vital signs Vital Sign Date Time Temp Pulse Resp B/P (MAP) Pulse Ox O2 Delivery O2 Flow Rate FiO2 11/20/24 12:08 59 20 146/60 11/20/24 09:09 98.1 98 98.1 11/19/24 20:00 Room Air* 0 21 Total Intake and Output 11/19/24 11/19/24 11/20/24 15:00 23:00 07:00 Intake Total 2790 ml 250 ml Output Total 400 ml Balance 2790 ml -150 ml medications Current Medications Medications Dose Ordered Sig/Anny Route Start Time Stop Time Status Last Admin Dose Admin Sodium Chloride 1,000 ml @ 75 mls/hr [id number] IV 11/19/24 11:45 11/19/24 22:05 75 MLS/HR Acetaminophen/ Hydrocodone Bitart 1 tab Q4HP PRN PO 11/19/24 11:45 11/19/24 20:33 1 TAB Ondansetron HCl 4 mg Q4HP PRN IV 11/19/24 11:45 Docusate Sodium 100 mg BIDPRN PRN PO 11/19/24 11:45 Acetaminophen 650 mg Q6HP PRN PO 11/19/24 11:45 Morphine Sulfate 2 mg Q4HPRN PRN IV 11/19/24 11:45 11/20/24 12:08 2 MG Nitroglycerin 0.4 mg Q5MINP PRN SL 11/19/24 11:45 Morphine Sulfate 2 mg Q30M PRN IV 11/19/24 11:45 Duloxetine HCl 60 mg DAILY PO 11/20/24 10:00 11/20/24 10:07 60 MG Glipizide 5 mg DAILY PO 11/20/24 10:00 11/20/24 10:20 5 MG Patient Own Medication 1 tab HS PO 11/19/24 22:00 UNV Vancomycin HCl 0 ml @ 0 mls/hr UD IV 11/19/24 12:00 Cefepime HCl 50 ml @ 12.5 mls/hr Q12HR IV 11/19/24 22:00 11/20/24 10:10 12.5 MLS/HR Atorvastatin Calcium 80 mg HS PO 11/19/24 22:00 11/19/24 21:35 80 MG Diagnostic Test (Pha) 1 strip ACHS 11/19/24 17:00 11/20/24 11:30 1 STRIP Insulin Human Regular HS SC 11/19/24 22:00 11/19/24 22:06 10 UNITS Insulin Human Regular AC SC 11/19/24 17:00 11/20/24 06:23 9 UNITS Dextrose 50 ml UD PRN IV 11/19/24 14:00 Vancomycin HCl 100 ml @ 100 mls/hr Q12H IV 11/19/24 22:00 11/20/24 10:55 100 MLS/HR Heparin Sodium/ Dextrose 250 ml @ 13 mls/hr [id number] IV 11/20/24 02:15 11/20/24 02:16 13 MLS/HR Examination: GENERAL:Normal, HEENT:Normal, NECK:Normal, LUNGS:Normal, CVS:Normal, ABDOMEN:Normal, MSK:Normal, MSK:Abnormal (RIGHT THIGH DRESSING, MULTIPLE SCARS FROM SKIN POPPING ON LEFT THIGH AND ARMS, righ toe gangrene), SKIN:Normal, NEURO:Normal, :Normal laboratory and microbiology Laboratory Tests 11/20/24 10:05 Test 11/20/24 10:05 Range/Units Serum Glucose 109 H 74-106 mg/dL Microbiology Date/Time Source Procedure Growth Status 11/19/24 13:11 Thigh Right Gram Stain - Final Complete 11/19/24 06:30 Blood Blood Culture - Preliminary NO GROWTH AFTER 24 HOURS OF INCUBATION. Resulted Problem List/Assessment/Plan Problem List/Assessment/Plan #1 necrotizing fascitis with sepsis: s/p surgery, iv antibiotics, ivf #2 right foot toe gangrene: plan amputation #3 possible right femoral occlusion: vascular surg to intervene #4 drug abuse with heroin #5 dm: ssi #6 htn #7 hyperlipidemia #8 anemia Plan discussed with: Patient My Orders My Orders Orders - ERIKA BENITEZ MD Procedure Category Date Status Time Clindamycin Ivpb PHA 11/20/24 Transmitted Cleocin 14:00 Complete Blood Count LAB 11/21/24 Verified 06:00 Basic Metabolic Panel LAB 11/21/24 Verified 06:00 Hemoglobin A1c LAB 11/21/24 Verified 06:00 Acute Hepatitis Panel LAB 11/20/24 Transmitted 13:20 Echo 2d Mode Cardiac US 11/20/24 Transmitted DOP 13:20 Critical Care Time (mins): 37 (critical care time 37 mins) Date of Service: Nov 20, 2024 Billing Provider: ERIKA BENITEZ MD Common Visit Codes: [id number] CARE 30-74 MIN ERIKA BENITEZ MD Nov 20, 2024 13:29
[2024-11-20 14:38] LABS: Hepatitis A Ab IgM Negative; Hepatitis B Core IgM Negative (Negative); Hepatitis B Surface Antigen Negative (Negative)
[2024-11-20 14:39] LABS: Hepatitis C Antibody Positive (Negative)
[2024-11-20 16:26] LABS: INR 1.01 (0.9-1.15); Prothrombin Time 10.7 sec (9.3-11.8)
[2024-11-20] MEDS: CLINDAMYCIN 600MG IV 50 ML IV SCH (17:16)
[2024-11-20] MEDS: ACETAMINOPHEN 325 MG TAB PO PRN (21:39)
[2024-11-20 22:36] LABS: INR 0.98 (0.9-1.15); Partial Thromboplastin Time 34.2 SEC (24.5-34.5); Prothrombin Time 10.4 sec (9.3-11.8)
[2024-11-20] MEDS: HEPARIN SODIUM (PORCINE) 5000 UNITS/ML 1ML VIAL IV ONE (23:21)
[2024-11-21] VITALS (11 sets, daily range): BP systolic 122–160; BP diastolic 64–87; PULSE 52–89; RESP 14–18; TEMP 97.4–98.6; O2SAT 94–100
[2024-11-21] MEDS: CLINDAMYCIN 600MG IV 50 ML IV SCH (00:30)
[2024-11-21 07:05] LABS: Potassium 3.6 mmol/L (3.5-5.1); Sodium 137 mmol/L (136-145)
[2024-11-21 07:06] LABS: Anion Gap 5 (5-15); Carbon Dioxide 23 mmol/L (20-31)
[2024-11-21 07:07] LABS: Calcium 8.6 mg/dL (8.7-10.4); Chloride 109 mmol/L (98-107)
[2024-11-21] MEDS: IODIXANOL 320MG/ML 100ML BTL IV ONE (07:07)
[2024-11-21] MEDS: HEPARIN IN NS 1000Units/500mL 1,500 ML ONE (07:07)
[2024-11-21 07:11] LABS: BUN/Creatinine Ratio 20.7 (10.0-20.0); Blood Urea Nitrogen 19 mg/dL (9-23); Glucose 95 mg/dL (74-106)
[2024-11-21 07:21] LABS: Basophils # (auto) 0 10 ^3/uL (0-0.2); Eosinophils # (auto) 0.1 10 ^3/uL (0-0.8); Eosinophils % (auto) 0.7 % (0.0-7.0); Hemoglobin 9.2 g/dL (13.5-17.5); Lymphocytes # (auto) 1.5 10 ^3/uL (0.4-5.4); Monocytes # (auto) 0.4 10 ^3/uL (0-1.3)
[2024-11-21 07:24] LABS: Basophils % (auto) 0.3 % (0.0-2.0); Hematocrit 29.8 % (41.0-53.0); Mean Corpuscular Hemoglobin 20.4 pg (28.0-32.0); Monocytes % (auto) 4.6 % (0.0-12.0); Neutrophils # (auto) 5.7 10 ^3/uL (1.6-8.6); Neutrophils % (auto) 74.4 % (37.0-80.0); Nucleated Red Blood Cells % 0.1 %; Platelet Count (auto) 296 10^3/uL (140-450); Red Blood Cells 4.52 10^6/uL (4.5-5.90); White Blood Cell 7.7 10^3/uL (4.4-10.8)
[2024-11-21] MEDS: fentaNYL CITRATE 100 MCG/2 ML VL ONE (07:29)
[2024-11-21] MEDS: MIDAZOLAM HCL 2MG/2ML 2ml VIAL (1mg/ml) ONE (07:30)
[2024-11-21] MEDS: LIDOCAINE 2%HCL (LOCAL ANESTH.) INJ 20ML MDV ONE (07:30)
[2024-11-21 07:48] LABS: Prothrombin Time 10.6 sec (9.3-11.8)
[2024-11-21 07:50] LABS: Red Cell Distribution Width 21.2 % (11.8-14.3)
[2024-11-21 08:00] LABS: Partial Thromboplastin Time 135.9 SEC (24.5-34.5)
--- NOTE | 2024-11-21 08:23 | DVHOP2 ---
Operative Report - 2 Report Details Date: 11/21/24 Preop Diagnosis: Severe right peripheral vascular disease Postop Diagnosis: Right proximal SFA stenosis 99% treated with angioplasty stent to 0 stenosis Surgeon: Hugh Bustamante MD Anesthesiologist: Jovi Anesthesia: Mac Consent: The patient was informed of the risks and benefits of the procedure. These include but are not limited to complications of anesthesia, postoperative infection, incomplete relief of symptoms, recurrence of symptoms, damage to blood vessels, nerves and tendons, deep venous thrombosis, pulmonary embolism and possible need for repeat surgery in the future. Name of Procedure Performed Right lower extremity arteriogram SFA angioplasty and stent. Procedure Details Procedure Details: Patient was identified in the preop holding area he was consented in preop by myself brought back to the slab tripper placed in the slab tripper table in supine position. After adequate induction of anesthesia. The left groin was then prepped and draped normal surgical fashion 1% lidocaine was injected over the left common from RA four [place] micropuncture needle was then used to cannulate the left common femoral artery a angiogram was performed which demonstrated adequate position of the catheter and no significant common femoral artery disease in the left side. Wire and catheter were then used to manipulate over the aortic bifurcation into the external iliac artery on the right side. A right lower extremity arteriogram post performed demonstrated a patent common femoral artery patent profunda a 99% stenosis of the proximal SFA with the distal SFA widely patent below the popliteal and tibial vessels were patent. At this point in time a wire was then manipulated across the high-grade stenosis a 45 cm destination sheath was then passed into the external iliac artery on the right side. A 6 x 40 balloon was then used to angioplasty the proximal SFA stenosis residual stenosis was noted to be at 50%. A 8 x 40 self expanding stent was then placed and post dilated with the 6 mm balloon completion angiogram demonstrated widely patent stent no residual stenosis. At this point in time wires and catheters were removed a six [place] Angio-Seal was deployed in the left common femoral artery hemostasis was obtained. Patient was loaded with Plavix and again into the PACU in a stable condition. Specimen: Condition Good Disposition Pacu HUGH BUSTAMANTE Jr., MD Nov 21, 2024 08:23
[2024-11-21] MEDS: CLOPIDOGREL BISULFATE 75 MG TAB ONE (08:24)
--- NOTE | 2024-11-21 15:56 | DVHPN2 ---
Progress Note Date Seen: Nov 21, 2024 Medical Necessity Reason Pt with a Central, PICC or Fol: No Subjective Patient reports: No new complaints Review of Systems: HEENT:Normal, CVS:Normal, RESPIRATORY:Normal, GI:Normal, :Normal, MSK:Normal, NEURO:Normal Objective vital signs Vital Sign Date Time Temp Pulse Resp B/P (MAP) Pulse Ox O2 Delivery O2 Flow Rate FiO2 11/21/24 13:00 98.6 89 18 122/64 (83) 98 98.6 11/21/24 08:00 Room Air* 0 21 Total Intake and Output 11/20/24 11/20/24 11/21/24 15:00 23:00 07:00 Intake Total 100 ml 1000 ml Output Total 1250 ml Balance 100 ml 1000 ml -1250 ml medications Current Medications Medications Dose Ordered Sig/Anny Route Start Time Stop Time Status Last Admin Dose Admin Sodium Chloride 1,000 ml @ 75 mls/hr [id number] IV 11/19/24 11:45 11/20/24 14:25 75 MLS/HR Acetaminophen/ Hydrocodone Bitart 1 tab Q4HP PRN PO 11/19/24 11:45 11/20/24 17:21 1 TAB Ondansetron HCl 4 mg Q4HP PRN IV 11/19/24 11:45 Docusate Sodium 100 mg BIDPRN PRN PO 11/19/24 11:45 Acetaminophen 650 mg Q6HP PRN PO 11/19/24 11:45 11/20/24 21:39 650 MG Morphine Sulfate 2 mg Q4HPRN PRN IV 11/19/24 11:45 11/20/24 12:08 2 MG Nitroglycerin 0.4 mg Q5MINP PRN SL 11/19/24 11:45 Morphine Sulfate 2 mg Q30M PRN IV 11/19/24 11:45 Duloxetine HCl 60 mg DAILY PO 11/20/24 10:00 11/21/24 09:41 60 MG Patient Own Medication 1 tab HS PO 11/19/24 22:00 UNV Vancomycin HCl 0 ml @ 0 mls/hr UD IV 11/19/24 12:00 Cefepime HCl 50 ml @ 12.5 mls/hr Q12HR IV 11/19/24 22:00 11/21/24 09:40 12.5 MLS/HR Atorvastatin Calcium 80 mg HS PO 11/19/24 22:00 11/20/24 21:33 80 MG Diagnostic Test (Pha) 1 strip ACHS 11/19/24 17:00 11/21/24 12:01 1 STRIP Insulin Human Regular HS SC 11/19/24 22:00 11/19/24 22:06 10 UNITS Insulin Human Regular AC SC 11/19/24 17:00 11/21/24 13:17 3 UNITS Dextrose 50 ml UD PRN IV 11/19/24 14:00 Clindamycin Phosphate 50 ml @ 50 mls/hr Q8H IV 11/21/24 00:00 11/21/24 00:30 50 MLS/HR Examination: GENERAL:Normal, HEENT:Normal, NECK:Normal, LUNGS:Normal, CVS:Normal, ABDOMEN:Normal, MSK:Normal, MSK:Abnormal (right thigh dressing), SKIN:Normal, NEURO:Normal, :Normal laboratory and microbiology Laboratory Tests 11/21/24 06:05 Test 11/21/24 06:05 Range/Units Serum Glucose 95 74-106 mg/dL Microbiology Date/Time Source Procedure Growth Status 11/19/24 13:11 Thigh Right Gram Stain - Final Complete 11/19/24 06:30 Blood Blood Culture - Preliminary NO GROWTH AFTER 48 HOURS OF INCUBATION. Resulted Problem List/Assessment/Plan Problem List/Assessment/Plan #1 necrotizing fascitis with sepsis due to mrsa s/p surgery, iv antibiotics, ivf #2 right foot toe gangrene: plan amputation #3 right femoral occlusion: s/p angio with stent #4 drug abuse with heroin #5 dm: ssi #6 htn #7 hyperlipidemia #8 anemia #9 Hep C positive advance care planning- full code- time spent 19 mins Plan discussed with: Patient My Orders My Orders Orders - ERIKA BENITEZ MD Procedure Category Date Status Time Clindamycin 600mg Iv PHA 11/21/24 In Process (Cleocin Iv) 00:00 Date of Service: Nov 21, 2024 Billing Provider: ERIKA BENITEZ MD Common Visit Codes: [id number] INP/OBS CARE(HIGH) Secondary Visit Codes: [id number] CARE PLAN 30 MINUTES ERIKA BENITEZ MD Nov 21, 2024 15:56
[2024-11-22] VITALS (9 sets, daily range): BP systolic 148–173; BP diastolic 79–86; PULSE 68–89; RESP 17–20; TEMP 97.7–98.6; O2SAT 97–99
[2024-11-22 07:57] LABS: Basophils # (auto) 0 10 ^3/uL (0-0.2)
[2024-11-22 08:00] LABS: Basophils % (auto) 0.4 % (0.0-2.0); Eosinophils # (auto) 0.1 10 ^3/uL (0-0.8); Hematocrit 27.1 % (41.0-53.0); Hemoglobin 8.6 g/dL (13.5-17.5); Lymphocytes % (auto) 18.4 % (10.0-50.0); Mean Corpuscular Hemoglobin 20.8 pg (28.0-32.0); Mean Corpuscular Hgb Conc. 31.7 g/dL (32.0-36.0); Mean Corpuscular Volume 65.5 fL (80.0-100.0); Monocytes # (auto) 0.4 10 ^3/uL (0-1.3); Monocytes % (auto) 6.6 % (0.0-12.0); Neutrophils # (auto) 4.1 10 ^3/uL (1.6-8.6); Neutrophils % (auto) 73.6 % (37.0-80.0); Platelet Count (auto) 300 10^3/uL (140-450); Red Blood Cells 4.13 10^6/uL (4.5-5.90); Red Cell Distribution Width 20.8 % (11.8-14.3); White Blood Cell 5.6 10^3/uL (4.4-10.8)
[2024-11-22 08:04] LABS: Sodium 136 mmol/L (136-145)
[2024-11-22 08:05] LABS: Anion Gap 4 (5-15); Carbon Dioxide 23 mmol/L (20-31)
[2024-11-22 08:06] LABS: Calcium 8.3 mg/dL (8.7-10.4); Chloride 109 mmol/L (98-107); Potassium 3.3 mmol/L (3.5-5.1)
[2024-11-22 08:11] LABS: Blood Urea Nitrogen 13 mg/dL (9-23)
[2024-11-22 08:17] LABS: Glucose 118 mg/dL (74-106)
[2024-11-22 08:25] LABS: BUN/Creatinine Ratio 16.7 (10.0-20.0)
[2024-11-22 09:02] LABS: Hypochromia Slight; Platelet Estimate Adequate
[2024-11-22] MEDS: CLOPIDOGREL BISULFATE 75 MG TAB PO SCH (09:31)
--- NOTE | 2024-11-22 13:45 | DVHPN2 ---
Subjective Patient reporting having extreme pain to his lower extremity. Reviewed: Care Plan, H&P, Labs, Medications Changes from previous H/P or p: No Changes General: Per HPI Eyes: No Pain, No Vision change, No Conjunctivae inflammation, No Eyelid inflammation, No Other, No Redness ENT: No Ear pain, No Ear discharge, No Nose pain, No Nose discharge, No Nose congestion, No Mouth pain, No Mouth swelling, No Throat pain, No Throat swelling, No Other Cardiovascular: No Chest Pain, No Palpitations, No Orthopnea, No Paroxysmal Noc. Dyspnea, No Edema, No Lt Headedness, No Other Respiratory: No Cough, No Dry, No Shortness of breath, No SOB with excertion, No Wheezing, No Hemoptysis, No Pleuritic Pain, No Sputum, No Other Gastrointestinal: No Nausea, No Vomiting, No Abdominal Pain, No Diarrhea, No Constipation, No Melena, No Hematochezia, No Other Genitourinary: No Dysuria, No Frequency, No Incontinence, No Hematuria, No Retention, No Other Musculoskeletal: No other, No neck pain, No shoulder pain, No arm pain, No back pain, No hand pain; leg pain (bilateral), foot pain (bilateral) Skin: No Rash, No Lesions, No Jaundice, No Bruising, No Other Objective Vitals Vital Signs Date Time Temp Pulse Resp B/P (MAP) Pulse Ox O2 Delivery O2 Flow Rate FiO2 11/22/24 12:57 98.3 80 17 151/82 (105) 99 98.3 11/22/24 08:15 Room Air* 0 21 Intake/Output Intake and Output 11/22/24 07:00 Intake Total 1550 ml Output Total 1975 ml Balance -425 ml Intake Oral 520 ml IV Total 1030 ml Output Urine Total 1975 ml General Appearance: Alert, Oriented X3, Cooperative, moderate distress HEENT: Atraumatic, PERRLA Lungs: Clear to auscultation, Normal air movement Cardiovascular: Normal S1, Normal S2 Abdomen: Normal bowel sounds, Soft, No tenderness, No hepatospenomegaly Genitourinary: No Apparent Abnormalities Musculoskeletal: Normal sensory function, Normal motor function Neuro: Normal gait, Normal speech Skin: Intact Psych/Mental Status: Mental status NL, Mood NL Medications Current Medications Medications Dose Ordered Sig/Anny Route Start Time Stop Time Status Last Admin Dose Admin Sodium Chloride 1,000 ml @ 75 mls/hr [id number] IV 11/19/24 11:45 11/21/24 16:57 75 MLS/HR Acetaminophen/ Hydrocodone Bitart 1 tab Q4HP PRN PO 11/19/24 11:45 11/20/24 17:21 1 TAB Ondansetron HCl 4 mg Q4HP PRN IV 11/19/24 11:45 Docusate Sodium 100 mg BIDPRN PRN PO 11/19/24 11:45 Acetaminophen 650 mg Q6HP PRN PO 11/19/24 11:45 11/20/24 21:39 650 MG Nitroglycerin 0.4 mg Q5MINP PRN SL 11/19/24 11:45 Morphine Sulfate 2 mg Q30M PRN IV 11/19/24 11:45 Duloxetine HCl 60 mg DAILY PO 11/20/24 10:00 11/22/24 09:31 60 MG Patient Own Medication 1 tab HS PO 11/19/24 22:00 UNV Vancomycin HCl 0 ml @ 0 mls/hr UD IV 11/19/24 12:00 Cefepime HCl 50 ml @ 12.5 mls/hr Q12HR IV 11/19/24 22:00 11/22/24 09:27 12.5 MLS/HR Atorvastatin Calcium 80 mg HS PO 11/19/24 22:00 11/21/24 22:54 80 MG Diagnostic Test (Pha) 1 strip ACHS 11/19/24 17:00 11/22/24 10:50 1 STRIP Insulin Human Regular HS SC 11/19/24 22:00 11/21/24 22:00 3 UNITS Insulin Human Regular AC SC 11/19/24 17:00 11/22/24 11:10 3 UNITS Dextrose 50 ml UD PRN IV 11/19/24 14:00 Clindamycin Phosphate 50 ml @ 50 mls/hr Q8H IV 11/21/24 00:00 11/22/24 07:56 50 MLS/HR Clopidogrel Bisulfate 75 mg DAILY PO 11/22/24 10:00 11/22/24 09:31 75 MG Morphine Sulfate 4 mg Q4HPRN PRN IV 11/22/24 13:45 UNV Laboratory Results Laboratory Tests 11/22/24 07:35 Chemistry Test 11/22/24 07:35 Calcium Level 8.3 mg/dL (8.7-10.4) L Urinalysis Test 11/19/24 12:18 Urine Color Yellow (Yellow) Urine Clarity Turbid (Clear) H Urine pH 6.0 (5.0-9.0) Urine Specific [place] 1.040 (1.001-1.035) Urine Protein 1+ (Negative) H Urine Ketones Negative (Negative) Urine Blood 2+ /uL (Negative) H Urine Nitrite Negative (Negative) Urine Bilirubin Negative (Negative) Urine Urobilinogen 2 mg/dL (Negative) H Urine Leukocyte Esterase Negative /uL (Negative) Urine RBC 55 /hpf (0 - 3) Urine Microscopic WBC 17 /HPF (0-3) H Urine Squamous Epithelial Cells Few /hpf (<5) Urine Bacteria None seen /hpf (None Seen) Urine Glucose Normal mg/dL (Normal) Microbiology Microbiology Date/Time Source Procedure Growth Status 11/19/24 13:11 Thigh Right Gram Stain - Final Complete 11/19/24 06:30 Blood Blood Culture - Preliminary NO GROWTH AFTER 72 HOURS OF INCUBATION. 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 Right foot with gangrenous wounds. -patient may require amputation -patient unstable to transfer to [facility] -repeat labs in a.m. Total time spent with patient discussing and formulating plan of care: 35 minutes. This medical document was created using an electronic medical record system with [email or web address] dictation system. Although this document has been carefully reviewed, there may still be some phonetic and typographical errors. These areas are purely typographical due to imperfections of the software programs, and do not reflect any compromise in the patient's medical care. Plan discussed with: Patient, Other (RN) My Orders Orders - AFSHIN WILSON NP Procedure Category Date Status Time Morphine Sulfate PHA 11/22/24 Logged Injection 13:45 Basic Metabolic Panel LAB 11/23/24 Verified 05:00 Basic Metabolic Panel LAB 11/24/24 Verified 05:00 Basic Metabolic Panel LAB 11/25/24 Verified 05:00 Complete Blood Count LAB 11/23/24 Verified 05:00 Complete Blood Count LAB 11/24/24 Verified 05:00 Complete Blood Count LAB 11/25/24 Verified 05:00 Sod Chl 0.45% PHA 11/22/24 Logged (Sodi... W/Potassium 13:45 Date of Service: Nov 22, 2024 Billing Provider: AFSHIN WILSON FAMILY SUPPORT COORDINATOR Common Visit Codes: [id number] INP/OBS CARE(HIGH) AFSHIN WILSON NP Nov 22, 2024 13:45
[2024-11-22] MEDS: MORPHINE SULFATE 4 MG/ML SYR/VIAL IV PRN (16:51)
[2024-11-22] MEDS: VANCOMYCIN 500mg/100mL 100 ML IV ONE (16:57)
[2024-11-22] MEDS: POTASSIUM CHLORIDE 40 MEQ in SOD CHL 0.45% 1,000 ML IV SCH (17:35)
[2024-11-22] MEDS: hydrALAZINE HCL 20 MG/ML VL IV STA (18:25)
[2024-11-23] VITALS (8 sets, daily range): BP systolic 123–155; BP diastolic 66–95; PULSE 69–97; RESP 17–19; TEMP 97.9–98.6; O2SAT 96–100
[2024-11-23 06:05] LABS: Anion Gap 7 (5-15)
[2024-11-23 06:11] LABS: BUN/Creatinine Ratio 15.7 (10.0-20.0); Blood Urea Nitrogen 11 mg/dL (9-23)
[2024-11-23 06:13] LABS: Calcium 8.6 mg/dL (8.7-10.4); Carbon Dioxide 18 mmol/L (20-31); Chloride 109 mmol/L (98-107); Glucose 127 mg/dL (74-106); Potassium 3.5 mmol/L (3.5-5.1); Sodium 134 mmol/L (136-145)
[2024-11-23 06:34] LABS: Basophils # (auto) 0 10 ^3/uL (0-0.2); Basophils % (auto) 0.5 % (0.0-2.0); Eosinophils # (auto) 0.1 10 ^3/uL (0-0.8); Lymphocytes # (auto) 1.3 10 ^3/uL (0.4-5.4); Monocytes # (auto) 0.4 10 ^3/uL (0-1.3)
[2024-11-23 06:36] LABS: Eosinophils % (auto) 2.1 % (0.0-7.0); Hematocrit 27.4 % (41.0-53.0); Hemoglobin 8.7 g/dL (13.5-17.5); Lymphocytes % (auto) 22.4 % (10.0-50.0); Mean Corpuscular Hemoglobin 20.5 pg (28.0-32.0); Mean Corpuscular Hgb Conc. 31.7 g/dL (32.0-36.0); Mean Corpuscular Volume 64.6 fL (80.0-100.0); Monocytes % (auto) 6.4 % (0.0-12.0); Neutrophils # (auto) 4.1 10 ^3/uL (1.6-8.6); Neutrophils % (auto) 68.6 % (37.0-80.0); Platelet Count (auto) 315 10^3/uL (140-450); Red Blood Cells 4.25 10^6/uL (4.5-5.90); Red Cell Distribution Width 21.5 % (11.8-14.3)
[2024-11-23] MEDS: Juven Fruit Punch Powder PACKET 28.8gm PO SCH (10:23)
--- NOTE | 2024-11-23 13:05 | DVHPN2 ---
Subjective The patient is seen and examined at bedside. Complain of pain in the legs area. Reviewed: Care Plan, H&P, Labs, Medications, Previous Orders, Radiology Changes from previous H/P or p: No Changes General: Per HPI Eyes: No Pain, No Vision change, No Conjunctivae inflammation, No Eyelid inflammation, No Other, No Redness ENT: No Ear pain, No Ear discharge, No Nose pain, No Nose discharge, No Nose congestion, No Mouth pain, No Mouth swelling, No Throat pain, No Throat swelling, No Other Cardiovascular: No Chest Pain, No Palpitations, No Orthopnea, No Paroxysmal Noc. Dyspnea, No Edema, No Lt Headedness, No Other Respiratory: No Cough, No Dry, No Shortness of breath, No SOB with excertion, No Wheezing, No Hemoptysis, No Pleuritic Pain, No Sputum, No Other Gastrointestinal: No Nausea, No Vomiting, No Abdominal Pain, No Diarrhea, No Constipation, No Melena, No Hematochezia, No Other Genitourinary: No Dysuria, No Frequency, No Incontinence, No Hematuria, No Retention, No Other Musculoskeletal: No other, No neck pain, No shoulder pain, No arm pain, No back pain, No hand pain; leg pain (bilateral), foot pain (bilateral) Skin: No Rash, No Lesions, No Jaundice, No Bruising, No Other Objective Vitals Vital Signs Date Time Temp Pulse Resp B/P (MAP) Pulse Ox O2 Delivery O2 Flow Rate FiO2 11/23/24 10:54 79 18 130/61 11/23/24 09:04 98.0 100 98.0 11/23/24 08:04 Room Air* 0 21 Intake/Output Intake and Output 11/23/24 07:00 Intake Total 1320 ml Output Total 1500 ml Balance -180 ml Intake Oral 970 ml IV Total 350 ml Output Urine Total 1500 ml General Appearance: Alert, Oriented X3, Cooperative, moderate distress HEENT: Atraumatic, PERRLA Lungs: Clear to auscultation, Normal air movement Cardiovascular: Normal S1, Normal S2 Abdomen: Normal bowel sounds, Soft, No tenderness, No hepatospenomegaly Genitourinary: No Apparent Abnormalities Musculoskeletal: Normal sensory function, Normal motor function Neuro: Normal gait, Normal speech Skin: Intact Psych/Mental Status: Mental status NL, Mood NL Medications Current Medications Medications Dose Ordered Sig/Anny Route Start Time Stop Time Status Last Admin Dose Admin Acetaminophen/ Hydrocodone Bitart 1 tab Q4HP PRN PO 11/19/24 11:45 11/22/24 14:10 1 TAB Ondansetron HCl 4 mg Q4HP PRN IV 11/19/24 11:45 Docusate Sodium 100 mg BIDPRN PRN PO 11/19/24 11:45 Acetaminophen 650 mg Q6HP PRN PO 11/19/24 11:45 11/20/24 21:39 650 MG Nitroglycerin 0.4 mg Q5MINP PRN SL 11/19/24 11:45 Morphine Sulfate 2 mg Q30M PRN IV 11/19/24 11:45 Duloxetine HCl 60 mg DAILY PO 11/20/24 10:00 11/23/24 10:22 60 MG Patient Own Medication 1 tab HS PO 11/19/24 22:00 UNV Vancomycin HCl 0 ml @ 0 mls/hr UD IV 11/19/24 12:00 Cefepime HCl 50 ml @ 12.5 mls/hr Q12HR IV 11/19/24 22:00 11/23/24 01:42 12.5 MLS/HR Atorvastatin Calcium 80 mg HS PO 11/19/24 22:00 11/22/24 21:30 80 MG Diagnostic Test (Pha) 1 strip ACHS 11/19/24 17:00 11/23/24 10:31 1 STRIP Insulin Human Regular HS SC 11/19/24 22:00 11/21/24 22:00 3 UNITS Insulin Human Regular AC SC 11/19/24 17:00 11/23/24 10:38 6 UNITS Dextrose 50 ml UD PRN IV 11/19/24 14:00 Clindamycin Phosphate 50 ml @ 50 mls/hr Q8H IV 11/21/24 00:00 11/23/24 07:41 50 MLS/HR Clopidogrel Bisulfate 75 mg DAILY PO 11/22/24 10:00 11/23/24 10:22 75 MG Morphine Sulfate 4 mg Q4HPRN PRN IV 11/22/24 13:45 11/23/24 10:24 4 MG Enteral Nutritional Formula 28.8 gm DAILY PO 11/23/24 10:00 11/23/24 10:23 28.8 GM Laboratory Results Laboratory Tests 11/23/24 04:00 11/23/24 05:58 Chemistry Test 11/23/24 04:00 Calcium Level 8.6 mg/dL (8.7-10.4) L Urinalysis Test 11/19/24 12:18 Urine Color Yellow (Yellow) Urine Clarity Turbid (Clear) H Urine pH 6.0 (5.0-9.0) Urine Specific [place] 1.040 (1.001-1.035) Urine Protein 1+ (Negative) H Urine Ketones Negative (Negative) Urine Blood 2+ /uL (Negative) H Urine Nitrite Negative (Negative) Urine Bilirubin Negative (Negative) Urine Urobilinogen 2 mg/dL (Negative) H Urine Leukocyte Esterase Negative /uL (Negative) Urine RBC 55 /hpf (0 - 3) Urine Microscopic WBC 17 /HPF (0-3) H Urine Squamous Epithelial Cells Few /hpf (<5) Urine Bacteria None seen /hpf (None Seen) Urine Glucose Normal mg/dL (Normal) Microbiology Microbiology Date/Time Source Procedure Growth Status 11/19/24 13:11 Thigh Right Gram Stain - Final Complete 11/19/24 06:30 Blood Blood Culture - Preliminary NO GROWTH AFTER 72 HOURS OF INCUBATION. 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 Right foot with gangrenous wounds. -patient may require amputation -patient unstable to transfer to [facility] -repeat labs in a.m. -Waiting for more I and D This medical document was created using an electronic medical record system with [employer] direct computerized dictation system. Although this document has been carefully reviewed, there may still be some phonetic and typographical errors. These areas are purely typographical due to imperfections of the software programs, and do not reflect any compromise in the patient's medical care. Plan discussed with: Patient Date of Service: Nov 23, 2024 Billing Provider: ASHLEIGH DOW MD Common Visit Codes: [id number] INP/OBS CARE(HIGH) ASHLEIGH DOW MD Nov 23, 2024 13:05
[2024-11-23] MEDS: VANCOMYCIN 750MG KIT 100 ML IV SCH (17:04)
--- NOTE | 2024-11-23 18:37 | DVHSR ---
APPROVED REPORT EXAM: LIMITED Two-dimensional and M-mode echocardiogram. Blood Pressure: 146/63 mmHg INDICATION Hypertension RISK FACTORS Height: 5' 7", Weight: 138 DIMENSIONS LVDd4.8 (3.8-5.7cm)LA (2D)3.8 (1.9-4.0cm)Aortic Root3.3 (2.0-3.7cm) LVDs3.3 (2.5-4.0cm)LA (MM) (1.9-4.0cm)Aortic Cusp Exc1.9 (1.5-2.0cm) EF (%) 60.0 (55-70%)Rt. Atrium3.5 (1.9-4.0cm)Asc. Aorta cm IVSd1.0 (0.7-1.1cm)RV (D) (1.8-2.4cm) PWd1.0 (0.7-1.1cm) Mitral Valve MitralMitral Stenosis E wave0.70m/sMV Mean GR.mmHg A wave0.70m/sMV Peak GR.mmHg E/A ratio1.02D MVAcm2 Aortic Valve Aortic ValveAortic Stenosis V10.60m/Any Mean GR.2mmHg V20.90m/Any Peak GR.3mmHg LVOT Diameter2.2 (1.8-2.4cm)Doppler AVA2.53cm2 Other Information Quality : Technically LimitedRhythm : Technically limited study due to body habitus. Conclusion LV EF IS 65% AND IS NORMAL NORMAL MV,TV,AORTIC VALVE AND PV NO EFFUSION MODERATELY DILATED RV
[2024-11-24] VITALS (8 sets, daily range): BP systolic 123–158; BP diastolic 52–85; PULSE 72–88; RESP 15–18; TEMP 97.6–98.2; O2SAT 98–100
[2024-11-24 06:28] LABS: Basophils # (auto) 0 10 ^3/uL (0-0.2); Eosinophils # (auto) 0.2 10 ^3/uL (0-0.8); Hemoglobin 8.9 g/dL (13.5-17.5); Lymphocytes # (auto) 1.7 10 ^3/uL (0.4-5.4); Monocytes # (auto) 0.5 10 ^3/uL (0-1.3); Monocytes % (auto) 7.7 % (0.0-12.0)
[2024-11-24 06:31] LABS: Basophils % (auto) 0.6 % (0.0-2.0); Eosinophils % (auto) 3.2 % (0.0-7.0); Hematocrit 28.4 % (41.0-53.0); Mean Corpuscular Hemoglobin 20.4 pg (28.0-32.0); Mean Corpuscular Hgb Conc. 31.4 g/dL (32.0-36.0); Mean Corpuscular Volume 65.1 fL (80.0-100.0); Neutrophils % (auto) 62.5 % (37.0-80.0); Nucleated Red Blood Cells % 0.1 %; Platelet Count (auto) 299 10^3/uL (140-450); Red Blood Cells 4.37 10^6/uL (4.5-5.90); Red Cell Distribution Width 21.5 % (11.8-14.3); White Blood Cell 6.4 10^3/uL (4.4-10.8)
[2024-11-24 06:44] LABS: Potassium 3.6 mmol/L (3.5-5.1)
[2024-11-24 06:45] LABS: Anion Gap 6 (5-15); Carbon Dioxide 20 mmol/L (20-31)
[2024-11-24 06:50] LABS: Blood Urea Nitrogen 13 mg/dL (9-23); Calcium 8.7 mg/dL (8.7-10.4); Chloride 108 mmol/L (98-107); Glucose 126 mg/dL (74-106); Sodium 134 mmol/L (136-145)
[2024-11-24 06:58] LABS: Anisocytosis Slight; Hypochromia Marked
[2024-11-24 06:59] LABS: Ovalocytes FEW; Stomatocytes Few
[2024-11-24 07:00] LABS: Platelet Estimate Adequa
[2024-11-24 07:18] LABS: BUN/Creatinine Ratio 16.7 (10.0-20.0)
--- NOTE | 2024-11-24 20:10 | DVHPN2 ---
Subjective The patient is seen and examined at bedside. Still complain of pain in the legs area. Reviewed: Care Plan, H&P, Labs, Medications, Previous Orders, Radiology Changes from previous H/P or p: No Changes General: Per HPI Eyes: No Pain, No Vision change, No Conjunctivae inflammation, No Eyelid inflammation, No Other, No Redness ENT: No Ear pain, No Ear discharge, No Nose pain, No Nose discharge, No Nose congestion, No Mouth pain, No Mouth swelling, No Throat pain, No Throat swelling, No Other Cardiovascular: No Chest Pain, No Palpitations, No Orthopnea, No Paroxysmal Noc. Dyspnea, No Edema, No Lt Headedness, No Other Respiratory: No Cough, No Dry, No Shortness of breath, No SOB with excertion, No Wheezing, No Hemoptysis, No Pleuritic Pain, No Sputum, No Other Gastrointestinal: No Nausea, No Vomiting, No Abdominal Pain, No Diarrhea, No Constipation, No Melena, No Hematochezia, No Other Genitourinary: No Dysuria, No Frequency, No Incontinence, No Hematuria, No Retention, No Other Musculoskeletal: No other, No neck pain, No shoulder pain, No arm pain, No back pain, No hand pain; leg pain (bilateral), foot pain (bilateral) Skin: No Rash, No Lesions, No Jaundice, No Bruising, No Other Objective Vitals Vital Signs Date Time Temp Pulse Resp B/P (MAP) Pulse Ox O2 Delivery O2 Flow Rate FiO2 11/24/24 17:39 80 16 143/72 11/24/24 17:00 98.1 99 98.1 11/24/24 08:00 Room Air* 0 21 Intake/Output Intake and Output 11/24/24 07:00 Intake Total 1150 ml Output Total 200 ml Balance 950 ml Intake Oral 850 ml IV Total 300 ml Output Urine Total 200 ml # Voids 4 # Bowel Movements 2 General Appearance: Alert, Oriented X3, Cooperative, moderate distress HEENT: Atraumatic, PERRLA Lungs: Clear to auscultation, Normal air movement Cardiovascular: Normal S1, Normal S2 Abdomen: Normal bowel sounds, Soft, No tenderness, No hepatospenomegaly Genitourinary: No Apparent Abnormalities Musculoskeletal: Normal sensory function, Normal motor function Neuro: Normal gait, Normal speech Skin: Intact Psych/Mental Status: Mental status NL, Mood NL Medications Current Medications Medications Dose Ordered Sig/Anny Route Start Time Stop Time Status Last Admin Dose Admin Acetaminophen/ Hydrocodone Bitart 1 tab Q4HP PRN PO 11/19/24 11:45 11/22/24 14:10 1 TAB Ondansetron HCl 4 mg Q4HP PRN IV 11/19/24 11:45 Docusate Sodium 100 mg BIDPRN PRN PO 11/19/24 11:45 Acetaminophen 650 mg Q6HP PRN PO 11/19/24 11:45 11/20/24 21:39 650 MG Nitroglycerin 0.4 mg Q5MINP PRN SL 11/19/24 11:45 Morphine Sulfate 2 mg Q30M PRN IV 11/19/24 11:45 Duloxetine HCl 60 mg DAILY PO 11/20/24 10:00 11/24/24 10:20 60 MG Patient Own Medication 1 tab HS PO 11/19/24 22:00 UNV Vancomycin HCl 0 ml @ 0 mls/hr UD IV 11/19/24 12:00 Cefepime HCl 50 ml @ 12.5 mls/hr Q12HR IV 11/19/24 22:00 11/24/24 10:20 12.5 MLS/HR Atorvastatin Calcium 80 mg HS PO 11/19/24 22:00 11/23/24 21:21 80 MG Diagnostic Test (Pha) 1 strip ACHS 11/19/24 17:00 11/24/24 17:09 1 STRIP Insulin Human Regular HS SC 11/19/24 22:00 11/23/24 21:40 2 UNITS Insulin Human Regular AC SC 11/19/24 17:00 11/24/24 17:20 3 UNITS Dextrose 50 ml UD PRN IV 11/19/24 14:00 Clindamycin Phosphate 50 ml @ 50 mls/hr Q8H IV 11/21/24 00:00 11/24/24 16:28 50 MLS/HR Clopidogrel Bisulfate 75 mg DAILY PO 11/22/24 10:00 11/24/24 12:09 75 MG Morphine Sulfate 4 mg Q4HPRN PRN IV 11/22/24 13:45 11/24/24 17:09 4 MG Enteral Nutritional Formula 28.8 gm DAILY PO 11/23/24 10:00 11/23/24 10:23 28.8 GM Vancomycin HCl 100 ml @ 100 mls/hr DAILY@1700 IV 11/23/24 17:00 11/24/24 17:37 100 MLS/HR Laboratory Results Laboratory Tests 11/24/24 05:33 Chemistry Test 11/24/24 05:33 Calcium Level 8.7 mg/dL (8.7-10.4) Urinalysis Test 11/19/24 12:18 Urine Color Yellow (Yellow) Urine Clarity Turbid (Clear) H Urine pH 6.0 (5.0-9.0) Urine Specific [place] 1.040 (1.001-1.035) Urine Protein 1+ (Negative) H Urine Ketones Negative (Negative) Urine Blood 2+ /uL (Negative) H Urine Nitrite Negative (Negative) Urine Bilirubin Negative (Negative) Urine Urobilinogen 2 mg/dL (Negative) H Urine Leukocyte Esterase Negative /uL (Negative) Urine RBC 55 /hpf (0 - 3) Urine Microscopic WBC 17 /HPF (0-3) H Urine Squamous Epithelial Cells Few /hpf (<5) Urine Bacteria None seen /hpf (None Seen) Urine Glucose Normal mg/dL (Normal) Microbiology Microbiology Date/Time Source Procedure Growth Status 11/19/24 13:11 Thigh Right Gram Stain - Final Complete 11/19/24 06:30 Blood Blood Culture - Final NO GROWTH AFTER 5 DAYS OF INCUBATION. 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 Right foot with gangrenous wounds. -patient may require amputation -patient unstable to transfer to [facility] -repeat labs in a.m. -Waiting for more I and D in a.m. -NPO past midnight This medical document was created using an electronic medical record system with [employer] direct computerized dictation system. Although this document has been carefully reviewed, there may still be some phonetic and typographical errors. These areas are purely typographical due to imperfections of the software programs, and do not reflect any compromise in the patient's medical care. Plan discussed with: Patient My Orders Orders - ASHLEIGH DOW MD Procedure Category Date Status Time Consistent DIET 11/24/24 Transmitted Carb(Ccho)Diabetes Lunch Npo After Midnight ORDERS 11/24/24 Transmitted Date of Service: Nov 24, 2024 Billing Provider: ASHLEIGH DOW MD Common Visit Codes: [id number] INP/OBS CARE(HIGH) ASHLEIGH DOW MD Nov 24, 2024 20:10
[2024-11-25] VITALS (9 sets, daily range): BP systolic 130–174; BP diastolic 62–75; PULSE 64–87; RESP 12–19; TEMP 97.1–98.1; O2SAT 99–100
[2024-11-25 06:16] LABS: Basophils # (auto) 0.1 10 ^3/uL (0-0.2); Eosinophils # (auto) 0.2 10 ^3/uL (0-0.8); Monocytes % (auto) 8.3 % (0.0-12.0); Neutrophils % (auto) 62.3 % (37.0-80.0)
[2024-11-25 06:20] LABS: Basophils % (auto) 0.9 % (0.0-2.0); Eosinophils % (auto) 2.7 % (0.0-7.0); Hematocrit 28.1 % (41.0-53.0); Hemoglobin 8.9 g/dL (13.5-17.5); Lymphocytes % (auto) 25.8 % (10.0-50.0); Mean Corpuscular Hemoglobin 20.6 pg (28.0-32.0); Mean Corpuscular Hgb Conc. 31.7 g/dL (32.0-36.0); Monocytes # (auto) 0.6 10 ^3/uL (0-1.3); Neutrophils # (auto) 4.8 10 ^3/uL (1.6-8.6); Nucleated Red Blood Cells % 0.1 %; Platelet Count (auto) 323 10^3/uL (140-450); Red Blood Cells 4.31 10^6/uL (4.5-5.90); Red Cell Distribution Width 21.1 % (11.8-14.3); White Blood Cell 7.7 10^3/uL (4.4-10.8)
[2024-11-25 06:21] LABS: Mean Corpuscular Volume 65.1 fL (80.0-100.0)
[2024-11-25 06:24] LABS: Calcium 8.8 mg/dL (8.7-10.4); Potassium 3.7 mmol/L (3.5-5.1)
[2024-11-25 06:25] LABS: Anion Gap 7 (5-15); Carbon Dioxide 21 mmol/L (20-31)
[2024-11-25 06:30] LABS: BUN/Creatinine Ratio 19.7 (10.0-20.0); Blood Urea Nitrogen 14 mg/dL (9-23)
[2024-11-25 06:39] LABS: Chloride 108 mmol/L (98-107); Glucose 121 mg/dL (74-106); Sodium 136 mmol/L (136-145)
[2024-11-25] MEDS ORDERED: KETAMINE 50mg/ML 1ml syringe ONE (07:07)
[2024-11-25] MEDS ORDERED: fentaNYL CITRATE 100 MCG/2 ML VL ONE (07:07)
[2024-11-25] MEDS ORDERED: HYDROmorphone HCL 2 MG/ML VL/or syr ONE (07:07)
[2024-11-25] MEDS ORDERED: MIDAZOLAM HCL 2MG/2ML 2ml VIAL (1mg/ml) ONE (07:07)
[2024-11-25] MEDS ORDERED: ONDANSETRON HCL 4 MG/2 ML VIAL ONE (07:09)
[2024-11-25] MEDS ORDERED: SODIUM CHLORIDE LOCK 10 ML ONE (07:09)
[2024-11-25] MEDS ORDERED: PROPOFOL 10 MG/ML 20 ML IV ONE (07:09)
[2024-11-25] MEDS ORDERED: LIDOCAINE 1% INJ PF 5ML AMP ONE (07:09)
[2024-11-25] MEDS ORDERED: HYDROmorphone HCL 2 MG/ML VL/or syr IV PRN (07:30)
[2024-11-25] MEDS ORDERED: MORPHINE SULFATE INJ 2 MG/ml SYRG IV PRN (07:30)
[2024-11-25] MEDS ORDERED: MORPHINE SULFATE 4 MG/ML SYR/VIAL IV PRN (07:30)
[2024-11-25 07:50] LABS: Partial Thromboplastin Time 26.8 SEC (24.5-34.5); Prothrombin Time 10.6 sec (9.3-11.8)
[2024-11-25] MEDS: BUPIVACAINE HCL 0.25% P/F 10 ML VIAL ONE (08:00)
--- NOTE | 2024-11-25 08:30 | DVHOP2 ---
Operative Report - 2 Report Details Date: 11/25/24 Preop Diagnosis: Severe right peripheral vascular disease, right 5th toe gangrene, right thigh abscess Postop Diagnosis: Right 5th toe gangrene and right thigh abscess Surgeon: Hugh Bustamante MD Anesthesiologist: Jovi Anesthesia: Jovi Consent: The patient was informed of the risks and benefits of the procedure. These include but are not limited to complications of anesthesia, postoperative infection, incomplete relief of symptoms, recurrence of symptoms, damage to blood vessels, nerves and tendons, deep venous thrombosis, pulmonary embolism and possible need for repeat surgery in the future. Name of Procedure Performed 1. Right 5th toe and metatarsal amputation 2. right thigh debridement Procedure Details Procedure Details: Patient was identified in the preop hold area. He was consented and preopped by myself he was then brought back to the operating room placed the operating room table in supine position after adequate induction of anesthesia antibiotics and time-out the right leg and foot was prepped and draped in normal surgical fashion the right 5th toe was black with dry gangrene. A lollipop incision was made laterally along the 5th metatarsal and around the base of the 5th toe the toe was amputated as well as the metatarsal head proximally 3 cm of the metatarsal bone of the 5th toe was amputated with a bone saw. Bovie cauterization was used for hemostasis. The wound was irrigated out well and then the closure was begun with 2-0 nylon sutures interruptedly. Sterile dressing was applied. Attention was then placed to the right thigh where the prior incision and drainage had been performed in the anterior lateral aspect as well as the medial aspect the wound was debrided of some fibrinous material on the anterior lateral wound. However the majority of the wound looked healthy with healthy pink muscle noted. The wound was then pulse irrigated with a 1000 L bag of fluid. The patient tolerated this well. The wound was then packed with gauze followed by Kerlix and an [place] wrap. The right foot was then dressed with Kerlix and an [place] wrap. Sponge and needle counts were correct. Patient was taken to the PACU in a stable condition. Specimen: Right 5th toe and metatarsal. Culture of right 5th toe bone Condition Good Disposition Pacu HUGH BUSTAMANTE Jr., MD Nov 25, 2024 08:30
[2024-11-25] MEDS: HYDROmorphone HCL 2 MG/ML VL/or syr IV PRN (08:37)
[2024-11-25] MEDS: NALOXONE HCL 0.4 MG/ML VIAL ONE (08:42)
[2024-11-25] MEDS: ceFAZolin 2 GM/D5W50ml 50 ML IV ONE (08:42)
[2024-11-25] MEDS: ROCURONIUM 10MG/ML 10ML VIAL IV ONE (08:42)
[2024-11-25] MEDS: SUCCINYLCHOLINE CHLORIDE 20 MG/ML 10ML VIAL IV ONE (08:42)
[2024-11-25] MEDS: METOCLOPRAMIDE HCL 5MG/ml INJ 2ml VIAL IV ONE (09:22)
[2024-11-25] MEDS: KETOROLAC TROMETH 30 MG/ML 1ML VIAL IV ONE (09:23)
--- NOTE | 2024-11-25 09:53 | DVHPN2 ---
Progress Note Date Seen: Nov 25, 2024 Medical Necessity Reason Pt with a Central, PICC or Fol: No Subjective Patient reports: No new complaints Review of Systems: HEENT:Normal, CVS:Normal, RESPIRATORY:Normal, GI:Normal, :Normal, MSK:Normal, NEURO:Normal Objective vital signs Vital Sign Date Time Temp Pulse Resp B/P (MAP) Pulse Ox O2 Delivery O2 Flow Rate FiO2 11/25/24 09:09 66 16 152/67 (95) 100 11/25/24 08:24 Room Air 0 11/25/24 08:24 100 11/25/24 08:24 97.6 97.6 Total Intake and Output 11/24/24 11/24/24 11/25/24 15:00 23:00 07:00 Intake Total 50 ml 650 ml 300 ml Output Total 500 ml 300 ml Balance 50 ml 150 ml 0 ml medications Current Medications Medications Dose Ordered Sig/Anny Route Start Time Stop Time Status Last Admin Dose Admin Acetaminophen/ Hydrocodone Bitart 1 tab Q4HP PRN PO 11/19/24 11:45 11/22/24 14:10 1 TAB Ondansetron HCl 4 mg Q4HP PRN IV 11/19/24 11:45 Docusate Sodium 100 mg BIDPRN PRN PO 11/19/24 11:45 Acetaminophen 650 mg Q6HP PRN PO 11/19/24 11:45 11/20/24 21:39 650 MG Nitroglycerin 0.4 mg Q5MINP PRN SL 11/19/24 11:45 Morphine Sulfate 2 mg Q30M PRN IV 11/19/24 11:45 Duloxetine HCl 60 mg DAILY PO 11/20/24 10:00 11/24/24 10:20 60 MG Patient Own Medication 1 tab HS PO 11/19/24 22:00 UNV Vancomycin HCl 0 ml @ 0 mls/hr UD IV 11/19/24 12:00 Cefepime HCl 50 ml @ 12.5 mls/hr Q12HR IV 11/19/24 22:00 11/24/24 20:55 12.5 MLS/HR Atorvastatin Calcium 80 mg HS PO 11/19/24 22:00 11/24/24 20:54 80 MG Diagnostic Test (Pha) 1 strip ACHS 11/19/24 17:00 11/25/24 06:26 1 STRIP Insulin Human Regular HS SC 11/19/24 22:00 11/24/24 21:35 2 UNITS Insulin Human Regular AC SC 11/19/24 17:00 11/24/24 17:20 3 UNITS Dextrose 50 ml UD PRN IV 11/19/24 14:00 Clindamycin Phosphate 50 ml @ 50 mls/hr Q8H IV 11/21/24 00:00 11/25/24 00:51 50 MLS/HR Clopidogrel Bisulfate 75 mg DAILY PO 11/22/24 10:00 11/24/24 12:09 75 MG Morphine Sulfate 4 mg Q4HPRN PRN IV 11/22/24 13:45 11/25/24 05:00 4 MG Enteral Nutritional Formula 28.8 gm DAILY PO 11/23/24 10:00 11/23/24 10:23 28.8 GM Vancomycin HCl 100 ml @ 100 mls/hr DAILY@1700 IV 11/23/24 17:00 11/24/24 17:37 100 MLS/HR Morphine Sulfate 2 mg Q4H PRN IV 11/25/24 07:30 11/25/24 11:31 Examination: GENERAL:Normal, HEENT:Normal, NECK:Normal, LUNGS:Normal, CVS:Normal, ABDOMEN:Normal, MSK:Normal, MSK:Abnormal (RIGHT FOOT/THIGH DRESSING), SKIN:Normal, NEURO:Normal, :Normal laboratory and microbiology Laboratory Tests 11/25/24 05:34 Test 11/25/24 05:34 Range/Units Serum Glucose 121 H 74-106 mg/dL Microbiology Date/Time Source Procedure Growth Status 11/19/24 13:11 Thigh Right Gram Stain - Final Complete 11/19/24 06:30 Blood Blood Culture - Final NO GROWTH AFTER 5 DAYS OF INCUBATION. 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 Date of Service: Nov 25, 2024 Billing Provider: ERIKA BENITEZ MD Common Visit Codes: [id number] INP/OBS CARE(HIGH) ERIKA BENITEZ MD Nov 25, 2024 09:53
[2024-11-26] VITALS (7 sets, daily range): BP systolic 106–157; BP diastolic 59–82; PULSE 71–102; RESP 16–18; TEMP 98.1–98.5; O2SAT 92–99
[2024-11-26 06:08] LABS: Lymphocytes # (auto) 1.6 10 ^3/uL (0.4-5.4); Monocytes # (auto) 0.6 10 ^3/uL (0-1.3); Neutrophils # (auto) 5.4 10 ^3/uL (1.6-8.6); White Blood Cell 7.9 10^3/uL (4.4-10.8)
[2024-11-26 06:12] LABS: Basophils # (auto) 0 10 ^3/uL (0-0.2); Basophils % (auto) 0.6 % (0.0-2.0); Eosinophils # (auto) 0.3 10 ^3/uL (0-0.8); Eosinophils % (auto) 3.3 % (0.0-7.0); Hematocrit 29.4 % (41.0-53.0); Hemoglobin 9.3 g/dL (13.5-17.5); Lymphocytes % (auto) 20.1 % (10.0-50.0); Mean Corpuscular Hemoglobin 20.8 pg (28.0-32.0); Mean Corpuscular Hgb Conc. 31.6 g/dL (32.0-36.0); Mean Corpuscular Volume 65.6 fL (80.0-100.0); Monocytes % (auto) 7.9 % (0.0-12.0); Neutrophils % (auto) 68.1 % (37.0-80.0); Nucleated Red Blood Cells % 0.1 %; Platelet Count (auto) 328 10^3/uL (140-450); Red Blood Cells 4.48 10^6/uL (4.5-5.90); Red Cell Distribution Width 21.9 % (11.8-14.3)
[2024-11-26 06:26] LABS: Alanine Aminotransferase 15 U/L (7-40); Alkaline Phosphatase 68 U/L (46-116); Anion Gap 7 (5-15); Aspartate Aminotransferase 19 U/L (13-40); BUN/Creatinine Ratio 11.3 (10.0-20.0); Bilirubin, Total 0.3 mg/dL (0.2-1.0); Calcium 8.8 mg/dL (8.7-10.4); Carbon Dioxide 20 mmol/L (20-31); Potassium 3.6 mmol/L (3.5-5.1); Total Protein 6.7 g/dL (5.7-8.2)
[2024-11-26 06:30] LABS: Albumin 3.1 g/dL (3.2-4.8); Blood Urea Nitrogen 7 mg/dL (9-23); Chloride 107 mmol/L (98-107); Glucose 135 mg/dL (74-106); Sodium 134 mmol/L (136-145)
[2024-11-26 06:46] LABS: Ovalocytes FEW; Platelet Estimate Adequate
[2024-11-26 06:47] LABS: Hypochromia Slight
--- NOTE | 2024-11-26 09:43 | DVHDS2 ---
Discharge Summary Date of Admission Nov 19, 2024 at 11:39 Date of Discharge: Nov 26, 2024 Labs/Diagnostic Data: Laboratory Results Test 11/26/24 05:46 11/26/24 05:25 11/25/24 07:15 11/24/24 05:33 POC Glucose 169 mg/dl (70-106) White Blood Count 7.9 10^3/uL (4.4-10.8) Red Blood Count 4.48 10^6/uL (4.5-5.90) Hemoglobin 9.3 g/dL (13.5-17.5) Hematocrit 29.4 % (41.0-53.0) Mean Corpuscular Volume 65.6 fL (80.0-100.0) Mean Corpuscular Hemoglobin 20.8 pg (28.0-32.0) Mean Corpuscular Hemoglobin Concent 31.6 g/dL (32.0-36.0) Red Cell Distribution Width 21.9 % (11.8-14.3) Platelet Count 328 10^3/uL (140-450) Mean Platelet Volume 6.7 fL (6.9-10.8) Neutrophils (%) (Auto) 68.1 % (37.0-80.0) Lymphocytes (%) (Auto) 20.1 % (10.0-50.0) Monocytes (%) (Auto) 7.9 % (0.0-12.0) Eosinophils (%) (Auto) 3.3 % (0.0-7.0) Basophils (%) (Auto) 0.6 % (0.0-2.0) Neutrophils # (Auto) 5.4 10 ^3/uL (1.6-8.6) Lymphocytes # (Auto) 1.6 10 ^3/uL (0.4-5.4) Monocytes # (Auto) 0.6 10 ^3/uL (0-1.3) Eosinophils # (Auto) 0.3 10 ^3/uL (0-0.8) Basophils # (Auto) 0 10 ^3/uL (0-0.2) Nucleated Red Blood Cells 0.1 % Platelet Estimate Adequate Hypochromasia (manual) Slight Microcytosis Slight Ovalocytes Few Sodium Level 134 mmol/L (136-145) Potassium Level 3.6 mmol/L (3.5-5.1) Chloride Level 107 mmol/L (98-107) Carbon Dioxide Level 20 mmol/L (20-31) Anion Gap 7 (5-15) Blood Urea Nitrogen 7 mg/dL (9-23) Creatinine 0.62 mg/dL (0.700-1.30) Glomerular Filtration Rate Calc 103 mL/min (>90) BUN/Creatinine Ratio 11.3 (10.0-20.0) Serum Glucose 135 mg/dL (74-106) Calcium Level 8.8 mg/dL (8.7-10.4) Total Bilirubin 0.3 mg/dL (0.2-1.0) Aspartate Amino Transferase (AST) 19 U/L (13-40) Alanine Aminotransferase (ALT) 15 U/L (7-40) Alkaline Phosphatase 68 U/L (46-116) Total Protein 6.7 g/dL (5.7-8.2) Albumin 3.1 g/dL (3.2-4.8) Prothrombin Time 10.6 sec (9.3-11.8) Prothrombin Time INR 1.00 (0.9-1.15) Activated Partial Thromboplast Time 26.8 SEC (24.5-34.5) Anisocytosis (manual) Slight Stomatocytes Few Brenna Cells Few Test 11/23/24 04:00 11/22/24 07:35 11/21/24 09:13 11/20/24 10:05 Random Vancomycin Level 11.1 ug/mL (5-10) HIV (1&2) Antibody Negative (Negative) Vancomycin Level Trough 24.6 ug/mL (5-10) Hepatitis A IgM Antibody Negative Hepatitis B Surface Antigen Negative (Negative) Hepatitis B Core IgM Antibody Negative (Negative) Hepatitis C Antibody Positive (Negative) Test 11/19/24 12:18 11/19/24 10:00 11/19/24 06:30 Urine Color Yellow (Yellow) Urine Clarity Turbid (Clear) Urine pH 6.0 (5.0-9.0) Urine Specific [place] 1.040 (1.001-1.035) Urine Protein 1+ (Negative) Urine Ketones Negative (Negative) Urine Blood 2+ /uL (Negative) Urine Nitrite Negative (Negative) Urine Bilirubin Negative (Negative) Urine Urobilinogen 2 mg/dL (Negative) Urine Leukocyte Esterase Negative /uL (Negative) Urine RBC 55 /hpf (0 - 3) Urine Microscopic WBC 17 /HPF (0-3) Urine Squamous Epithelial Cells Few /hpf (<5) Urine Bacteria None seen /hpf (None Seen) Urine Glucose Normal mg/dL (Normal) Urine Opiates Screen Pos (NEGATIVE) Urine Fentanyl Screen Neg (NEGATIVE) Urine Barbiturates Screen Neg (NEGATIVE) Urine Phencyclidine Screen Neg (NEGATIVE) Urine Amphetamines Screen Neg (NEGATIVE) Urine Benzodiazepines Screen Neg (NEGATIVE) Urine Cocaine Screen Neg (NEGATIVE) Urine Cannabinoids Screen Neg (NEGATIVE) Poikilocytosis (manual) Slight Schistocytes Few Hemoglobin A1c 5.1 % A1C (<5.7) Lactic Acid Level 1.2 mmol/L (0.4-2.0) Other Laboratory Tests 11/26/24 05:25 Brief Hx & Hospital Course: SEE DICTATED NOTE Condition at Discharge: Fair Final Diagnosis/Problems List Right 5th toe gangrene and right thigh abscess Discharge Disposition: Acute Care Facility Discharge Instruct/Medications Diet: Cardiac 2g Na,low cholest Activity: No Restrictions, As Tolerated Follow Up/Referral: FU WITH [facility] Medications: PER OCT Discharge Statement: "Patient was advised to return to the ER or call 911 if any headaches, dizziness, shortness of breath, chest pain, abdominal pain, bleeding, fevers, or worsening of medical condition. Patient was counseled about treatment plan, medications, possible side effects, patientverbalized understanding. All questions were answered to the best of my ability. This discharge took greater then 30 minutes in planning, reviewing documentation, counseling the patient, and discussing with other team members." ASSESSMENT ASSESSMENT Assessment Right 5th toe gangrene and right thigh abscess Date of Service: Nov 26, 2024 Billing Provider: ERIKA BENITEZ MD Common Visit Codes: 51723-DFR/OBS DISCH DAY >30min ERIKA BENITEZ MD Nov 26, 2024 09:43
--- NOTE | 2024-11-26 10:08 | DVHDS ---
DATE OF DISCHARGE: 11/26/2024 DATE OF TRANSFER: 11/26/2024 HISTORY OF PRESENT ILLNESS: The patient is a 69-year-old gentleman who came in with bilateral lower extremity pain and pain in his right thigh. The patient has a history of hypertension, hyperlipidemia, and diabetes along with peripheral neuropathy. HOSPITAL COURSE: The patient had a CT of the lower extremity that showed evidence of diffuse soft tissue edema with multiple ill-defined abscesses and pockets of fluid and gas. The patient also had non-visualization of the left peroneal artery, posterior tibial, and dorsalis pedis. He was seen in Surgery consult by Dr. Bustamante. Echocardiogram done showed an ejection fraction of 65%. The patient underwent debridement for necrotizing fasciitis on 11/19/2024. The patient's wound cultures grew MRSA and enterococcus faecalis. The patient subsequently was taken back to the operating room on 11/21/2024 wherein he underwent angioplasty of right proximal superficial femoral artery stenosis with angioplasty and stent placement. The patient also had developed gangrene of his right fifth toe and underwent repeat debridement of the right thigh along with amputation of the right fifth toe. The patient's stock screen was positive for opiates. The patient will now be transferred to [facility] for further management. FINAL DIAGNOSES: * Necrotizing fasciitis with sepsis due to MRSA and enterococcus faecalis status post debridement. * Right foot toe gangrene, status post amputation. 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 * Drug abuse with heroin. * Diabetes mellitus. * Hypertension. * Hyperlipidemia. * Anemia. * Hepatitis C positive. Time spent in discharge plan, review of plan with patient, nursing and paperwork was 41 minutes. MD DEANGELO Kerns/JONAS TID: [id number] RECEIPT: [id number]
[2024-11-26] MEDS: METHADONE HCL 10 MG TAB PO SCH (14:15)
== END 2024-11-26 18:07 | disposition short-term general hospital (02) | DRG 853 ==
LOC: EDBD 02:40 → ER 02:40 → OVERFLOW 11:39 → TELE-WESTW 15:23 → TELE-CENTR 11-21 19:38 → CENTRAL 11-26 11:31
PROVIDERS: ADMIT Internal Medicine; ATTEND Internal Medicine
PROC: 0KBQ0ZZ Excision of Right Upper Leg Muscle, Open Approach (ICD-10-PCS; principal; 2024-11-19 12:56)
PROC: 047K34Z Dilation of Right Femoral Artery with Drug-eluting Intraluminal Device, Percutaneous Approach (ICD-10-PCS; 2024-11-21)
PROC: B41GYZZ Fluoroscopy of Left Lower Extremity Arteries using Other Contrast (ICD-10-PCS; 2024-11-21)
PROC: B41FYZZ Fluoroscopy of Right Lower Extremity Arteries using Other Contrast (ICD-10-PCS; 2024-11-21)
PROC: 0Y6X0Z0 Detachment at Right 5th Toe, Complete, Open Approach (ICD-10-PCS; 2024-11-25)
PROC: 0JBL0ZZ Excision of Right Upper Leg Subcutaneous Tissue and Fascia, Open Approach (ICD-10-PCS; 2024-11-25)
DX: A41.02 Sepsis due to Methicillin resistant Staphylococcus aureus (principal); M72.6 Necrotizing fasciitis; L02.415 Cutaneous abscess of right lower limb; L97.919 Non-pressure chronic ulcer of unspecified part of right lower leg with unspecified severity; E46 Unspecified protein-calorie malnutrition; L97.929 Non-pressure chronic ulcer of unspecified part of left lower leg with unspecified severity; L02.416 Cutaneous abscess of left lower limb; E11.52 Type 2 diabetes mellitus with diabetic peripheral angiopathy with gangrene; Z68.21 Body mass index [BMI] 21.0-21.9, adult; R65.20 Severe sepsis without septic shock; I10 Essential (primary) hypertension; E87.6 Hypokalemia; E78.5 Hyperlipidemia, unspecified; D64.9 Anemia, unspecified; B19.20 Unspecified viral hepatitis C without hepatic coma; E11.65 Type 2 diabetes mellitus with hyperglycemia; E11.42 Type 2 diabetes mellitus with diabetic polyneuropathy; F11.10 Opioid abuse, uncomplicated; F17.200 Nicotine dependence, unspecified, uncomplicated; I70.201 Unspecified atherosclerosis of native arteries of extremities, right leg
CPT/HCPCS: 36415; 37226; 73706; 76937; 80048; 80053; 80074; 80202; 80307; 81001; 82962; 83036; 83605; 85025; 85610; 85730; 86703; 86850; 86900; 86901; 87040; 87070; 87075; 87077; 87186; 87205; 93306; 97162; 99152; 99291; C1769; C1894; G0378; J0131; J0330; J0690; J0692; J1100; J1815; J1885; J2003; J2250; J2405; J2704; J3490; Q9967

== ENCOUNTER 2024-12-19 03:59 | Inpatient (IN) | payer MEDICARE, OTHER ==
[~2024-12-19] VITALS: Ht 167.6 cm; Wt 71.5 kg
[~2024-12-19 03:59] MED LIST: DULO1CAP5 PO; GLIP5TAB21 PO; LISI10TA34 PO; METF-370 PO; ROSU20TA56 PO
--- NOTE | 2024-12-19 04:39 | ED.PDOC ---
History of Present Illness HPI Comments 69 year old male presents to the ED via EMS with a chief complaint of generalized weakness onset 4 days. Per EMS patient states he had RT foot 5th toe amputated 4 days ago, wound looks old. Patient noticed increased weakness past few days, is not able to walk or balance himself. He states in the past week he has fallen over 30 times due to weakness. PMHx DM, HTN, HLD, Neuropathy. Denies chest pain, shortness of breath, dizziness, dysuria, head injury, LOC. No other symptoms or modifying factors present at this time. Chief Complaint: General Weakness Time Seen by MD: 04:30 Reviewed Notes: Medications, Allergies Allergies: Coded Allergies: NO KNOWN ALLERGIES (Unverified , 11/19/24) Home Meds Reported Medications Gabapentin (Gabapentin) 300 Mg Cap, CAP PO 12/19/24 Metformin Hydrochloride (Metformin Hcl) 500 Mg Tab, 1 TAB PO BID 11/19/24 Lisinopril (Lisinopril) 10 Mg Tab, 1 TAB PO DAILY 11/19/24 Glipizide (Glipizide) 5 Mg Tab, 1 TAB PO DAILY 11/19/24 Duloxetine HCl (Duloxetine HCl) 30 Mg Cap, 2 CAP PO DAILY 11/19/24 Rosuvastatin Calcium (Rosuvastatin Calcium) 20 Mg Tab, 1 TAB PO HS 11/19/24 Information Source: Patient, Emergency Med Personnel Mode of Arrival: EMS Severity: Moderate Timing: Days Duration: Since onset Prehospital treatment: None Past Medical History PAST MEDICAL HISTORY: DM, High Lipids, HTN Surgical History (Other): RT 5th toe amputatioon Family History Family History: Reviewed,noncontributory to illness Social History Smoker: Cigar Alcohol: Denies ETOH Use Drugs: Heroin Lives In: Home Constitutional: reports: weakness; denies: chills, diaphoresis, fatigue, fever, malaise, sweats, others EENTM: denies: blurred vision, double vision, ear bleeding, ear discharge, ear drainage, ear pain, ear ringing, eye pain, eye redness, hearing loss, mouth pain, mouth swelling, nasal discharge, nose bleeding, nose congestion, nose pain, photophobia, tearing, throat pain, throat swelling, voice changes, others Respiratory: denies: cough, hemoptysis, orthopnea, SOB at rest, shortness of breath, SOB with excertion, stridor, wheezing, others Cardiovascular: denies: chest pain, dizzy spells, diaphoresis, Dyspnea on exertion, edema, irregular heart beat, left arm pain, lightheadedness, p alpitations, PND, syncope, others Gastrointestinal: denies: abdomen distended, abdominal pain, blood streaked bowels, constipated, diarrhea, dysphagia, difficulty swallowing, hematemesis, melena, nausea, poor appetite, poor fluid intake, rectal bleeding, rectal pain, vomiting, others Genitourinary: denies: burning, dysuria, flank pain, frequency, hematuria, incontinence, penile discharge, penile sore, pain, testicle pain, testicle swelling, urgency, others Neurological: reports: weakness; denies: dizziness, fainting, headache, left sided numbness, left sided weakness, numbness, paresthesia, pre-existing deficit, right sided numbness, right sided weakness, seizure, speech problems, tingling, tremors, others Musculoskeletal: reports: others (RT foot pain); denies: back pain, gout, joint pain, joint swelling, muscle pain, muscle stiffness, neck pain Integumetry: denies: bruises, change in color, change in hair/nails, dryness, laceration, lesions, lumps, rash, wounds, others Allergic/Immunocompromised: denies: Difficulty Healing, Frequent Infections, Hives, Itching, others Hematologic/Lymphatic: denies: anemia, blood clots, easy bleeding, easy bruising, swollen glands, others Endocrine: denies: excessive hunger, excessive sweating, excessive thirst, excessive urination, flushing, intolerance to cold, intolerance to heat, unexplained weight gain, unexplained weight loss, others Psychiatric: denies: anxiety, bipolar disorder, depression, hopeless, panic disorder, schizophrenia, sleepless, suicidal, others All Other Systems: Reviewed and Negative Physical Exam General Appearance: No Apparent Distress, Normal HEENT: Normal ENT Inspection, Pharynx Normal, TMs Normal Neck: Full Range of Motion, Non-Tender, Normal, Normal Inspection Respiratory: Chest Non-Tender, Lungs Clear, No Accessory Muscle Use, No Respiratory Distress, Normal Breath Sounds Cardiovascular: No Edema, No JVD, No Murmur, No Gallop, Normal Peripheral Pulses, Regular Rate/Rhythm Breast Exam: Deferred Gastrointestinal: No Organomegaly, Non Tender, No Pulsatile Mass, Normal Bowel Sounds, Soft Genitalia: Deferred Pelvic: Deferred Rectal: Deferred Extremities: No calf tenderness, Normal capillary refill, Normal inspection, Normal range of motion, Non-tender, No pedal edema Musculoskeletal : Apperance: Normal Neurologic: Alert, online communications specialist II-XII nml as Tested, No Motor Deficits, Normal Affect, Normal Mood, No Sensory Deficits Cerebellar Function: Normal Reflexes: Normal Skin: Dry, Normal Color, Warm Lymphatic: No Adenopathy Was a procedure done? Was a procedure done?: No Differential Dx Considerations may include: Pneumonia, viral syndrome, cellulitis, wound infection, ABDIAZIZ X-Ray, Labs, Meds, VS Vital Signs Date Time Temp Pulse Resp B/P (MAP) Pulse Ox O2 Delivery O2 Flow Rate FiO2 12/19/24 10:10 87 13 131/70 12/19/24 08:00 98.9 83 10 101/57 (72) 100 98.9 12/19/24 08:00 77 12/19/24 08:00 83 10 100 Room Air* 0 21 12/19/24 08:00 83 16 101/57 (72) 100 12/19/24 05:44 99.2 80 18 101/52 (68) 95 99.2 12/19/24 05:12 81 18 93 Nasal Cannula* 2 28 12/19/24 04:43 98.4 81 18 106/32 (56) 99 98.4 12/19/24 04:05 98.3 92 16 131/63 (85) 98 98.3 Lab Test 12/19/24 06:25 12/19/24 05:08 12/19/24 04:44 Range/Units Lactic Acid Level 1.1 0.4-2.0 mmol/L White Blood Count 14.7 H 4.4-10.8 10^3/uL Red Blood Count 5.07 4.5-5.90 10^6/uL Hemoglobin 11.5 L 13.5-17.5 g/dL Hematocrit 37.2 L 41.0-53.0 % Mean Corpuscular Volume 73.4 L 80.0-100.0 fL Mean Corpuscular Hemoglobin 22.6 L 28.0-32.0 pg Mean Corpuscular Hemoglobin Concent 30.8 L 32.0-36.0 g/dL Red Cell Distribution Width 25.4 H 11.8-14.3 % Platelet Count 382 140-450 10^3/uL Mean Platelet Volume 6.3 L 6.9-10.8 fL Neutrophils (%) (Auto) 80.8 H 37.0-80.0 % Lymphocytes (%) (Auto) 11.6 10.0-50.0 % Monocytes (%) (Auto) 7.0 0.0-12.0 % Eosinophils (%) (Auto) 0.4 0.0-7.0 % Basophils (%) (Auto) 0.2 0.0-2.0 % Neutrophils # (Auto) 11.9 H 1.6-8.6 10 ^3/uL Lymphocytes # (Auto) 1.7 0.4-5.4 10 ^3/uL Monocytes # (Auto) 1.0 0-1.3 10 ^3/uL Eosinophils # (Auto) 0.1 0-0.8 10 ^3/uL Basophils # (Auto) 0 0-0.2 10 ^3/uL Nucleated Red Blood Cells 0.2 % Platelet Estimate Adequate Large Platelets Few Hypochromasia (manual) Slight Microcytosis Slight Ovalocytes Few Sodium Level 131 L 136-145 mmol/L Potassium Level 5.4 H 3.5-5.1 mmol/L Chloride Level 102 98-107 mmol/L Carbon Dioxide Level 20 20-31 mmol/L Anion Gap 9 5-15 Blood Urea Nitrogen 36 H 9-23 mg/dL Creatinine 1.42 H 0.700-1.30 mg/dL Glomerular Filtration Rate Calc 53 >90 mL/min BUN/Creatinine Ratio 25.4 H 10.0-20.0 Serum Glucose 109 H 74-106 mg/dL Hemoglobin A1c 4.9 <5.7 % A1C Calcium Level 9.5 8.7-10.4 mg/dL Magnesium Level 2.1 1.6-2.6 mg/dL Total Bilirubin 0.4 0.2-1.0 mg/dL Aspartate Amino Transferase (AST) 14 13-40 U/L Alanine Aminotransferase (ALT) < 9 7-40 U/L Alkaline Phosphatase 77 46-116 U/L Troponin I High Sensitivity 9 </=54 ng/L Total Protein 7.9 5.7-8.2 g/dL Albumin 4.1 3.2-4.8 g/dL Lipase 33 12-53 U/L Urine Color Yellow Yellow Urine Clarity Turbid H Clear Urine pH 5.0 5.0-9.0 Urine Specific [place] 1.016 1.001-1.035 Urine Protein Trace H Negative Urine Ketones Negative Negative Urine Blood 3+ H Negative /uL Urine Nitrite Negative Negative Urine Bilirubin Negative Negative Urine Urobilinogen Normal Negative mg/dL Urine Leukocyte Esterase Negative Negative /uL Urine RBC 106 0 - 3 /hpf Urine Microscopic WBC 8 H 0-3 /HPF Urine Squamous Epithelial Cells Few <5 /hpf Urine Bacteria Few H None Seen /hpf Urine Hyaline Casts Few 0 - 2 /lpf Urine Mucus Few None Seen Urine Glucose Normal Normal mg/dL Current Medications Medications (Trade) Dose Ordered Sig/Anny Route Start Time Stop Time Status Last Admin Sodium Chloride 1,000 ml @ 1,000 mls/hr Q1H ONCE IVB 12/19/24 06:00 12/19/24 06:59 DC 12/19/24 06:25 Piperacillin Sod/ Tazobactam Sod 100 ml @ 100 mls/hr ONCE ONCE IV 12/19/24 06:00 12/19/24 06:59 DC 12/19/24 06:41 Sodium Chloride 1,850 ml @ 1,850 mls/hr ONCE ONCE IV 12/19/24 06:30 12/19/24 07:29 DC 12/19/24 06:44 Morphine Sulfate 4 mg ONCE ONCE IV 12/19/24 08:15 12/19/24 08:16 DC 12/19/24 10:10 Vancomycin HCl 200 ml @ 200 mls/hr ONCE ONCE IV 12/19/24 08:15 12/19/24 09:14 DC 12/19/24 10:09 Zirconium Oxide (Lokelma) 10 gm ONCE ONCE PO 12/19/24 10:00 12/19/24 10:01 DC 12/19/24 10:39 Time of 1ST Reevaluation: 05:00 Reevaluation 1ST: Unchanged Patient Education/Counseling: Diagnosis, Treatment, Prognosis Family Education/Counseling: No Family Present Departure 1 Departure Time of Disposition: 06:42 ([place] with the [facility] who recommends we admit patient here. We will empirically cover patient with antibiotics and admit patient for further workup and expert consultation) Impression: Primary Impression: ABDIAZIZ (acute kidney injury) Additional Impressions: Hyperkalemia Generalized weakness Wound infection Disposition: ADMITTED INPATIENT Admit to: Med Surg Condition: Serious Discharged With: Self Critical Care Note Critical Care Time?: No Stability Stability form required: No I personally scribed for LUDIVINA LAGUNAS MD ([email or web address]) on 12/19/24 at 04:38. Electronically submitted by Ansley Bello ([email or web address]). LUDIVINA LAGUNAS MD December 19, 2024 04:38 JERICA BANKS MD December 19, 2024 06:43
[2024-12-19 05:12] VITALS: PULSE 81; RESP 18; O2SAT 93
[2024-12-19 05:22] LABS: Basophils # (auto) 0 10 ^3/uL (0-0.2); Eosinophils # (auto) 0.1 10 ^3/uL (0-0.8); Nucleated Red Blood Cells % 0.2 %
[2024-12-19 05:26] LABS: Basophils % (auto) 0.2 % (0.0-2.0); Eosinophils % (auto) 0.4 % (0.0-7.0); Hematocrit 37.2 % (41.0-53.0); Hemoglobin 11.5 g/dL (13.5-17.5); Lymphocytes # (auto) 1.7 10 ^3/uL (0.4-5.4); Lymphocytes % (auto) 11.6 % (10.0-50.0); Mean Corpuscular Hemoglobin 22.6 pg (28.0-32.0); Mean Corpuscular Hgb Conc. 30.8 g/dL (32.0-36.0); Mean Corpuscular Volume 73.4 fL (80.0-100.0); Neutrophils # (auto) 11.9 10 ^3/uL (1.6-8.6); Neutrophils % (auto) 80.8 % (37.0-80.0); Platelet Count (auto) 382 10^3/uL (140-450); Red Blood Cells 5.07 10^6/uL (4.5-5.90); Red Cell Distribution Width 25.4 % (11.8-14.3); White Blood Cell 14.7 10^3/uL (4.4-10.8)
[2024-12-19 05:41] LABS: Alanine Aminotransferase < 9 U/L (7-40); Albumin 4.1 g/dL (3.2-4.8); Alkaline Phosphatase 77 U/L (46-116); Anion Gap 9 (5-15); Aspartate Aminotransferase 14 U/L (13-40); BUN/Creatinine Ratio 25.4 (10.0-20.0); Blood Urea Nitrogen 36 mg/dL (9-23); Calcium 9.5 mg/dL (8.7-10.4); Carbon Dioxide 20 mmol/L (20-31); Chloride 102 mmol/L (98-107); Glucose 109 mg/dL (74-106); Magnesium 2.1 mg/dL (1.6-2.6); Potassium 5.4 mmol/L (3.5-5.1); Sodium 131 mmol/L (136-145); Total Protein 7.9 g/dL (5.7-8.2)
[2024-12-19 05:42] LABS: Bilirubin, Total 0.4 mg/dL (0.2-1.0)
--- NOTE | 2024-12-19 05:51 | DVH ---
EXAM: XR Chest, 1 View CLINICAL INDICATION: weakness TECHNIQUE: Frontal view of the chest. COMPARISON: None FINDINGS: LUNGS AND PLEURAL SPACES: Unremarkable. No consolidation. No pneumothorax. HEART: Unremarkable. No cardiomegaly. MEDIASTINUM: Unremarkable. Normal mediastinal contour. BONES/JOINTS: Unremarkable. No acute fracture. OTHER FINDINGS: . IMPRESSION: No acute cardiopulmonary process.
[2024-12-19 06:00] LABS: Hypochromia Slight; Large Platelets FEW; Ovalocytes FEW; Platelet Estimate Adequate
[2024-12-19] MEDS: SODIUM CHLORIDE 0.9% 1,000 ML IVB ONE (06:25)
[2024-12-19] MEDS: PIPERACILLIN-TAZOB 3.375GM 100 ML IV ONE (06:41)
--- NOTE | 2024-12-19 06:43 | ECG ---
[facility] Test Date: 2024-12-19 Test Time: 04:17:15 Pat Name: ERIKA ESPINAL Department: ED Room: [address] [place] [address] Gender: M Overnight Babysitter: JULIO : 1955 Requested By: LUDIVINA LAGUNAS Order Number: [id number] Reading MD: Jonathan Hankins Measurements Intervals [place] Rate: 93 P: 77 PA: 142 QRS: 78 QRSD: 89 T: 69 QT: 328 QTc: 408 Interpretive Statements Sinus rhythm Electronically Signed On 12-19-2024 13:16:48 PDT by Jonathan Hankins Please click the below link to view image of tracing.
[2024-12-19] MEDS: SODIUM CHLORIDE 0.9% 1,850 ML IV ONE (06:44)
[2024-12-19 08:00] VITALS: PULSE 83; RESP 10; O2SAT 100
[2024-12-19] MEDS ORDERED: PATIENTS OWN MEDICATION (Lisinopril 1 TAB) PO SCH (10:00)
[2024-12-19] MEDS: VANCOMYCIN 1GM/200ML PM 200 ML IV ONE (10:09)
[2024-12-19] MEDS: MORPHINE SULFATE 4 MG/ML SYR/VIAL IV ONE (10:10)
[2024-12-19] MEDS ORDERED: GABA-1250 PO (10:35)
[2024-12-19] MEDS: SODIUM ZIRCONIUM CYCL 10 GM PAK PO ONE (10:39)
[2024-12-19] MEDS ORDERED: ACETAMINOPHEN 325 MG TAB PO PRN (10:45)
[2024-12-19] MEDS ORDERED: ONDANSETRON HCL 4 MG/2 ML VIAL IV PRN (10:45)
[2024-12-19] MEDS ORDERED: DEXTROSE (50%) 50ML SYRG IV PRN (10:45)
[2024-12-19] MEDS ORDERED: VANCOMYCIN PER PHARMACY 0 MG IV SCH (10:45)
--- NOTE | 2024-12-19 10:45 | DVHHP2 ---
History of Present Illness Reason for Visit: Right foot pain History of Present Illness Parveen Elam is a 69-year-old male with past medical history of hypertension, hyperlipidemia, diabetes type 2, peripheral neuropathy, right 5th toe amputation, right thigh debridement, and left leg surgery who presents to the ED with generalized weakness x4 days along with right foot wound and pain. Patient states that he has had multiple falls not been able to walk even with using his front wheel walker. He reports that he just had a recent amputation here at [facility]. Upon examination discolored right foot noted. Patient states that when he fell no specific area of pain aside from his right foot. Patient denies any recent sick contacts, recent travels, chest pain, shortness of breath, fever, chills, lightheadedness, weakness, dizziness, abdominal pain, nausea, vomiting, or diarrhea. Cardiovascular: HTN, hyperipidemia Endocrine: Diabetes Past Medical History Peripheral neuropathy Past Surgical History: Other (Right 5th toe amputation, right thigh debridement, and left leg surgery) Smoke: <1 pack per day (Cigars) ALCOHOL: none Drugs: Heroin Lives: with Family Domestic Violence: Neg Review of Systems Musculoskeletal: foot pain Skin: Other (Discoloration right foot) Allergies: Coded Allergies: NO KNOWN ALLERGIES (Unverified , 11/19/24) Medications Current Medications Medications Dose Ordered Sig/Anny Route Start Time Stop Time Status Last Admin Dose Admin Duloxetine HCl 2 mg DAILY PO 12/19/24 10:00 UNV Patient Own Medication 1 tab DAILY PO 12/19/24 10:00 UNV Patient Own Medication 1 tab HS PO 12/19/24 22:00 UNV Gabapentin 300 mg TID PO 12/19/24 14:00 UNV Exam Vital Signs Vital Signs Date Time Temp Pulse Resp B/P (MAP) Pulse Ox O2 Delivery O2 Flow Rate FiO2 12/19/24 10:10 87 13 131/70 12/19/24 08:00 98.9 100 98.9 12/19/24 08:00 Room Air* 0 21 General Appearance: Alert, Oriented X3, Cooperative, No acute distress HEENT: Atraumatic, PERRLA, EOMI, Mucous membr. moist/pink Respiratory: Clear to auscultation, Normal air movement Cardiovascular: Regular rate, Normal S1, Normal S2 Abdominal: Normal bowel sounds, Soft, No tenderness Extremities: Other Neuro: Normal speech, Normal tone, Sensation intact Psych/Mental Status: Mental status NL, Mood NL Labs/Xrays Labs Test 12/19/24 06:25 12/19/24 05:08 Range/Units Lactic Acid Level 1.1 0.4-2.0 mmol/L White Blood Count 14.7 H 4.4-10.8 10^3/uL Red Blood Count 5.07 4.5-5.90 10^6/uL Hemoglobin 11.5 L 13.5-17.5 g/dL Hematocrit 37.2 L 41.0-53.0 % Mean Corpuscular Volume 73.4 L 80.0-100.0 fL Mean Corpuscular Hemoglobin 22.6 L 28.0-32.0 pg Mean Corpuscular Hemoglobin Concent 30.8 L 32.0-36.0 g/dL Red Cell Distribution Width 25.4 H 11.8-14.3 % Platelet Count 382 140-450 10^3/uL Mean Platelet Volume 6.3 L 6.9-10.8 fL Neutrophils (%) (Auto) 80.8 H 37.0-80.0 % Lymphocytes (%) (Auto) 11.6 10.0-50.0 % Monocytes (%) (Auto) 7.0 0.0-12.0 % Eosinophils (%) (Auto) 0.4 0.0-7.0 % Basophils (%) (Auto) 0.2 0.0-2.0 % Neutrophils # (Auto) 11.9 H 1.6-8.6 10 ^3/uL Lymphocytes # (Auto) 1.7 0.4-5.4 10 ^3/uL Monocytes # (Auto) 1.0 0-1.3 10 ^3/uL Eosinophils # (Auto) 0.1 0-0.8 10 ^3/uL Basophils # (Auto) 0 0-0.2 10 ^3/uL Nucleated Red Blood Cells 0.2 % Platelet Estimate Adequate Large Platelets Few Hypochromasia (manual) Slight Microcytosis Slight Ovalocytes Few Sodium Level 131 L 136-145 mmol/L Potassium Level 5.4 H 3.5-5.1 mmol/L Chloride Level 102 98-107 mmol/L Carbon Dioxide Level 20 20-31 mmol/L Anion Gap 9 5-15 Blood Urea Nitrogen 36 H 9-23 mg/dL Creatinine 1.42 H 0.700-1.30 mg/dL Glomerular Filtration Rate Calc 53 >90 mL/min BUN/Creatinine Ratio 25.4 H 10.0-20.0 Serum Glucose 109 H 74-106 mg/dL Calcium Level 9.5 8.7-10.4 mg/dL Magnesium Level 2.1 1.6-2.6 mg/dL Total Bilirubin 0.4 0.2-1.0 mg/dL Aspartate Amino Transferase (AST) 14 13-40 U/L Alanine Aminotransferase (ALT) < 9 7-40 U/L Alkaline Phosphatase 77 46-116 U/L Troponin I High Sensitivity 9 </=54 ng/L Total Protein 7.9 5.7-8.2 g/dL Albumin 4.1 3.2-4.8 g/dL Lipase 33 12-53 U/L CLINICAL INDICATION: rle foot pain TECHNIQUE: Noncontrast CT of the right foot was performed. Sagittal and coronal reformatted images are provided. COMPARISON: None CT Dose: CTDI volume is 7.75 mGy. Dose-length product is 203.18 mGy*cm FINDINGS: No fracture or dislocation. Disuse osteopenia noted. Joint spaces are maintained. Amputation of the majority of the 5th metatarsal bone. There is no cortical destruction. Soft tissue swelling and gas noted at the resection site in the 5th toe. There is dorsal soft tissue swelling in the forefoot. Vascular calcifications noted. IMPRESSION: 1. Soft tissue infection suspected about the 4th toe. No cortical destruction to suggest osteomyelitis, however if there is clinical concern, MRI is recommended. US BiLat Lower DVT HISTORY: r/o dvt COMPARISON: None TECHNIQUE: Duplex doppler evaluation of the deep venous system of the lower extremity from the common femoral veins, superficial femoral vein, great saphenous vein, deep femoral vein, popliteal vein, and calf veins, including color doppler and spectral/pulsed waveform analysis, was performed. FINDINGS: Right: - Common femoral vein: Compressible - Deep femoral vein: Compressible - Femoral vein: Compressible - Popliteal vein: Compressible - Posterior tibial vein: Waveforms present - Other: Nothing Left: - Common femoral vein: Compressible - Deep femoral vein: Compressible - Femoral vein: Compressible - Popliteal vein: Compressible - Posterior tibial vein: Waveforms present - Other: Nothing IMPRESSION: No right or left lower extremity deep venous thrombosis. EXAM: XR Chest, 1 View CLINICAL INDICATION: weakness TECHNIQUE: Frontal view of the chest. COMPARISON: None FINDINGS: LUNGS AND PLEURAL SPACES: Unremarkable. No consolidation. No pneumothorax. HEART: Unremarkable. No cardiomegaly. MEDIASTINUM: Unremarkable. Normal mediastinal contour. BONES/JOINTS: Unremarkable. No acute fracture. OTHER FINDINGS: . IMPRESSION: No acute cardiopulmonary process. Assessment/Plan Assessment/Plan Assessment Generalized weakness Right foot pain rule out cellulitis versus osteomyelitis Leukocytosis likely due to cellulitis rule out sepsis Hyperkalemia Anemia Hyponatremia ABDIAZIZ Acute hypoxic respiratory failure Cigar use Heroin use History of right 5th toe amputation History of hypertension History of hyperlipidemia History of diabetes type 2 History of peripheral neuropathy History of right thigh debridement History of left leg surgery Plan Admit to tele IV antibiotics vancomycin + Zosyn Supportive oxygen Hemoglobin A1c ISS and Accu-Cheks Pain management NS given ED Blood cultures Lactic level Mag level Chest x-ray Lipase RBC morphology EKG UA Troponins Lokelma CT right foot Bilateral lower extremity venous ultrasound X-ray right foot Wound culture Gram stain Diet Home medications reconciled DVT prophylaxis-Lovenox PUD prophylaxis-not indicated no history of GERD or GI bleed Discussed plan of care with patient and nurse Counseled patient on cessation of heroin and cigar use Plan discussed with: Patient My Orders Orders - KITA EMANUEL ENGINEERING MGR Procedure Category Date Status Time (Nf) Rosuvastatin PHA 12/19/24 Logged Calcium 22:00 Duloxetine Hcl PHA 12/19/24 Verified Capsule (Cymbalta 10:00 (Nf) Lisinopril PHA 12/19/24 Verified 10:00 Gabapentin Capsule PHA 12/19/24 Logged (Neurontin Capsule) 14:00 Ct R Foot Wo Contrast CT 12/19/24 Logged 10:36 Bilat Lower Dvt US 12/19/24 Logged 10:36 Admit ADMIT 12/19/24 Transmitted 10:36 Allergies KEON 12/19/24 In Process 10:36 Code Status CODE 12/19/24 Transmitted 10:36 Hydrocodone-Acet PHA 12/19/24 Transmitted 5/325mg Tab ([place] 10:45 Ondansetron Hcl PHA 12/19/24 Transmitted (Zofran) 10:45 Complete Blood Count LAB 12/20/24 Verified 04:00 Comprehensive LAB 12/20/24 Verified Metabolic Panel 04:00 Cardiac DIET 12/19/24 Transmitted Diet-2gna,Lofat,Lochol Lunch Pt Request For Service PT 12/19/24 Logged 10:36 Enoxaparin Sodium PHA 12/20/24 Transmitted (Lovenox) 10:00 Acetaminophen Tablet PHA 12/19/24 Transmitted (Tylenol Tablet) 10:45 Morphine Sulfate PHA 12/19/24 Transmitted Injection 10:45 Vancomycin Per PHA 12/19/24 Transmitted Pharmacy 10:45 Zosyn Extended PHA 12/19/24 Transmitted Infusion 14:00 Date of Service: December 19, 2024 Billing Provider: KITA EMANUEL Common Visit Codes: [id number] INP/OBS CARE (HIGH) KITA EMANUEL December 19, 2024 10:45
[2024-12-19 11:13] LABS: Urine Bacteria FEW /hpf (None Seen); Urine Blood 3+ /uL (Negative); Urine Clarity Turbid (Clear); Urine Color Yellow (Yellow); Urine Hyaline Cast FEW /lpf (0 - 2); Urine Mucus FEW (None Seen); Urine Protein, UAD TRACE (Negative); Urine Specific Gravity 1.016 (1.001-1.035); Urine Squamous Epithelial Cell FEW /hpf (<5); Urine Urobilinogen Normal (Negative); Urine WBC 8 /HPF (0-3)
[2024-12-19] MEDS: DULoxetine HCL 30 MG CAP PO SCH (11:14)
--- NOTE | 2024-12-19 11:17 | DVH ---
US BiLat Lower DVT HISTORY: r/o dvt COMPARISON: None TECHNIQUE: Duplex doppler evaluation of the deep venous system of the lower extremity from the common femoral veins, superficial femoral vein, great saphenous vein, deep femoral vein, popliteal vein, an d calf veins, including color doppler and spectral/pulsed waveform analysis, was performed. FINDINGS: Right: - Common femoral vein: Compressible - Deep femoral vein: Compressible - Femoral vein: Compressible - Popliteal vein: Compressible - Posterior tibial vein: Waveforms present - Other: Nothing Left: - Common femoral vein: Compressible - Deep femoral vein: Compressible - Femoral vein: Compressible - Popliteal vein: Compressible - Posterior tibial vein: Waveforms present - Other: Nothing IMPRESSION: No right or left lower extremity deep venous thrombosis.
[2024-12-19] MEDS: ACCU-CHEK COMFORT CURVE STRIP VI SCH (11:43)
[2024-12-19] MEDS: InsuLIN REG 1unit/0.01ml Soln (100units/ml) SC SCH (11:44)
--- NOTE | 2024-12-19 11:54 | DVH ---
CLINICAL INDICATION: rle foot pain TECHNIQUE: Noncontrast CT of the right foot was performed. Sagittal and coronal reformatted images ar e provided. COMPARISON: None CT Dose: CTDI volume is 7.75 mGy. Dose-length product is 203.18 mGy*cm FINDINGS: No fracture or dislocation. Disuse osteopenia noted. Joint spaces are maintained. Amputatio n of the majority of the 5th metatarsal bone. There is no cortical destruction. Soft tissue swellin g and gas noted at the resection site in the 5th toe. There is dorsal soft tissue swelling in the f orefoot. Vascular calcifications noted. IMPRESSION: 1. Soft tissue infection suspected about the 4th toe. No cortical destruction to suggest osteomyeliti s, however if there is clinical concern, MRI is recommended. All CT scans at this medical facility are performed using dose modulation techniques as appropriate t o a performed exam including the following: Automated exposure control was utilized; adjustment of th e MA and/or KV according to patient size; and use of iterative reconstruction technique.
--- NOTE | 2024-12-19 11:55 | DVH ---
CLINICAL INDICATION: foot pain f/o fx TECHNIQUE: AP and lateral views of the right foot were performed. XY R FOOT 2 VIEW XRAY Comparison: CT scan of the right foot performed 6 minutes earlier on the same day. FINDINGS/IMPRESSION: : 1. No acute fracture or dislocation of the right foot. 2. Postoperative changes of 5th trans metatarsal amputation re-identified at the level of the mid sha ft. 3. Gas in the soft tissues of the lateral forefoot are suggestive of open wound. It is uncertain if t his appearance may be due to diabetic ulcer or infectious process. There are small round calcificatio ns in the region of the soft tissue gas. 4. Extensive atherosclerotic vascular disease.
[2024-12-19] MEDS: GABAPENTIN 300 MG CAP PO SCH (13:38)
[2024-12-19] MEDS: PIPERACILLIN-TAZOB 3.375GM 100 ML IV SCH (13:39)
[2024-12-19 19:30] VITALS: O2SAT 100
[2024-12-19 20:00] VITALS: PULSE 71
[2024-12-19] MEDS ORDERED: PATIENTS OWN MEDICATION (Rosuvastatin Calcium 1 TAB) PO SCH (22:00)
[2024-12-19 22:07] VITALS: BP 120/56; PULSE 67; RESP 18; TEMP 97.9; O2SAT 94
[2024-12-19] MEDS: ATORVASTATIN 20 MG TAB PO SCH (22:44)
[2024-12-19] MEDS: MORPHINE SULFATE INJ 2 MG/ml SYRG IV PRN (22:46)
[2024-12-20] VITALS (7 sets, daily range): BP systolic 104–127; BP diastolic 41–71; PULSE 60–73; RESP 16–18; TEMP 97.7–98; O2SAT 94–97
[2024-12-20 07:46] LABS: Mean Corpuscular Hemoglobin 22.4 pg (28.0-32.0); Mean Corpuscular Hgb Conc. 31.1 g/dL (32.0-36.0)
[2024-12-20 07:47] LABS: Hemoglobin 9.3 g/dL (13.5-17.5); Platelet Count (auto) 316 10^3/uL (140-450); Red Blood Cells 4.17 10^6/uL (4.5-5.90); White Blood Cell 11.9 10^3/uL (4.4-10.8)
[2024-12-20 07:48] LABS: Alkaline Phosphatase 64 U/L (46-116); Anion Gap 8 (5-15); Calcium 9.5 mg/dL (8.7-10.4); Glucose 105 mg/dL (74-106); Potassium 4.1 mmol/L (3.5-5.1); Sodium 138 mmol/L (136-145); Total Protein 6.6 g/dL (5.7-8.2)
[2024-12-20 07:49] LABS: Albumin 3.4 g/dL (3.2-4.8); Bilirubin, Total 0.3 mg/dL (0.2-1.0)
[2024-12-20 07:50] LABS: Red Cell Distribution Width 25.9 % (11.8-14.3)
[2024-12-20 07:52] LABS: Alanine Aminotransferase < 9 U/L (7-40); Aspartate Aminotransferase 13 U/L (13-40); Band Neutrophils % (manual) 0; Basophils % (manual) 0 (0.0-2.0); Blood Urea Nitrogen 33 mg/dL (9-23); Carbon Dioxide 20 mmol/L (20-31); Chloride 110 mmol/L (98-107); Metamyelocytes % 0; Myelocytes % 0; Promyelocytes % 0; Reactive Lymphocytes 0
[2024-12-20] MEDS: LISINOPRIL 5 MG TAB PO SCH (09:43)
[2024-12-20] MEDS: ENOXAPARIN SOD 40 MG/0.4 ML SYRINGE SC SCH (09:44)
[2024-12-20] MEDS ORDERED: ENOXAPARIN SOD 30 MG/0.3 ML SYRINGE SC SCH (10:00)
[2024-12-20 10:54] LABS: Blast Cells 2; Eosinophils % (manual) 1 (0-7); Hypochromia Moderate; Lymphocytes % (manual) 12 (10.0-50.0); Monocytes % (manual) 14 (0-12); Platelet Estimate Adequate
[2024-12-20 10:55] LABS: Anisocytosis Moderate
--- NOTE | 2024-12-20 12:18 | DVHINCON2 ---
Date Seen: December 20, 2024 Reason for Consultation Right foot wound History of Present Illness Parveen Elam is a 69-year-old male with past medical history of hypertension, hyperlipidemia, diabetes type 2, peripheral neuropathy, right 5th toe amputation, right thigh debridement, and left leg surgery who presents to the ED with generalized weakness x4 days along with right foot wound and pain. Patient states that he has had multiple falls not been able to walk even with using his front wheel walker. He reports that he just had a recent amputation here at [facility]. Upon examination discolored right foot noted. Patient states that when he fell no specific area of pain aside from his right foot. Patient denies any recent sick contacts, recent travels, chest pain, shortness of breath, fever, chills, lightheadedness, weakness, dizziness, abdominal pain, nausea, vomiting, or diarrhea. Past Medical History See H&P Past Surgical History See H&P Family History: Patient reports no known family medical history. Allergies: Coded Allergies: NO KNOWN ALLERGIES (Unverified , 11/19/24) Home Meds Reported Medications Gabapentin (Gabapentin) 300 Mg Cap, CAP PO 12/19/24 Metformin Hydrochloride (Metformin Hcl) 500 Mg Tab, 1 TAB PO BID 11/19/24 Lisinopril (Lisinopril) 10 Mg Tab, 1 TAB PO DAILY 11/19/24 Glipizide (Glipizide) 5 Mg Tab, 1 TAB PO DAILY 11/19/24 Duloxetine HCl (Duloxetine HCl) 30 Mg Cap, 2 CAP PO DAILY 11/19/24 Rosuvastatin Calcium (Rosuvastatin Calcium) 20 Mg Tab, 1 TAB PO HS 11/19/24 Current Medications Current Medications Medications (Trade) Dose Ordered Sig/Anny Route PRN Reason Start Time Stop Time Status Last Admin Patient Own Medication 1 tab HS PO 12/19/24 22:00 UNV Gabapentin (Neurontin Capsule) 300 mg TID PO 12/19/24 14:00 12/19/24 22:44 Enoxaparin Sodium (Lovenox) 30 mg DAILY SC 12/20/24 10:00 Cancel Piperacillin Sod/ Tazobactam Sod 100 ml @ 25 mls/hr Q8HR IV 12/19/24 14:00 12/20/24 06:25 Lisinopril (Zestril Tablet) 10 mg DAILY PO 12/20/24 10:00 12/20/24 09:43 Atorvastatin Calcium (Lipitor) 80 mg HS PO 12/19/24 22:00 12/19/24 22:44 Enoxaparin Sodium (Lovenox) 40 mg DAILY SC 12/20/24 10:00 12/20/24 09:44 Vital Signs Vital Signs Date Time Temp Pulse Resp B/P (MAP) Pulse Ox O2 Delivery O2 Flow Rate FiO2 12/20/24 09:50 65 17 111/41 12/20/24 08:00 97.9 97 97.9 12/19/24 22:07 Room Air* 0 21 Physical Exam Dermatological: Skin is dry with mild erythema and some maceration around the wound site No gross deformities noted Mild non-pitting edema present bilaterally Dry gangrene to the right lateral aspect to his foot and distal toes Vascular: Dorsalis pedis and posterior tibial pulses are 1+ bilaterally Capillary refill is under 2 seconds Skin temperature is warm bilaterally Neurologic: Protective sensation is absent on the plantar forefoot bilaterally Monofilament testing reveals decreased sensation in multiple plantar sites Musculoskeletal: Range of motion at the ankle and MTP joints is within normal limits. Strength is 5/5 in all tested muscle groups. Gait is antalgic due to offloading of the affected limb. Labs/Diagnostic Data Labs Test 12/20/24 11:46 12/20/24 06:54 12/19/24 06:25 12/19/24 05:08 Range/Units POC Glucose 147 H 70-106 mg/dl White Blood Count 11.9 H 4.4-10.8 10^3/uL Red Blood Count 4.17 L 4.5-5.90 10^6/uL Hemoglobin 9.3 #L 13.5-17.5 g/dL Hematocrit 30.0 #L 41.0-53.0 % Mean Corpuscular Volume 72.0 L 80.0-100.0 fL Mean Corpuscular Hemoglobin 22.4 L 28.0-32.0 pg Mean Corpuscular Hemoglobin Concent 31.1 L 32.0-36.0 g/dL Red Cell Distribution Width 25.9 H 11.8-14.3 % Platelet Count 316 140-450 10^3/uL Mean Platelet Volume 6.8 L 6.9-10.8 fL Neutrophils (%) (Auto) 37.0-80.0 % Lymphocytes (%) (Auto) 10.0-50.0 % Monocytes (%) (Auto) 0.0-12.0 % Basophils (%) (Auto) 0.0-2.0 % Neutrophils # (Auto) 1.6-8.6 10 ^3/uL Lymphocytes # (Auto) 0.4-5.4 10 ^3/uL Monocytes # (Auto) 0-1.3 10 ^3/uL Differential Total Cells Counted 100.0 100 Neutrophils % (Manual) 71 37.0-80.0 Band Neutrophils % (Manual) 0 Lymphocytes % (Manual) 12 10.0-50.0 Monocytes % (Manual) 14 H 0-12 Eosinophils % (Manual) 1 0-7 Basophils % (Manual) 0 0.0-2.0 Metamyelocytes % (manual) 0 Myelocytes % (Manual) 0 Promyelocytes % (Manual) 0 Blast Cells % (Manual) 2 Reactive Lymphocytes 0 Platelet Estimate Adequate Hypochromasia (manual) Moderate Anisocytosis (manual) Moderate Microcytosis Moderate Sodium Level 138 # 136-145 mmol/L Potassium Level 4.1 3.5-5.1 mmol/L Chloride Level 110 H 98-107 mmol/L Carbon Dioxide Level 20 20-31 mmol/L Anion Gap 8 5-15 Blood Urea Nitrogen 33 H 9-23 mg/dL Creatinine 1.18 0.700-1.30 mg/dL Glomerular Filtration Rate Calc 67 >90 mL/min BUN/Creatinine Ratio 28.0 H 10.0-20.0 Serum Glucose 105 74-106 mg/dL Calcium Level 9.5 8.7-10.4 mg/dL Total Bilirubin 0.3 0.2-1.0 mg/dL Aspartate Amino Transferase (AST) 13 13-40 U/L Alanine Aminotransferase (ALT) < 9 7-40 U/L Alkaline Phosphatase 64 46-116 U/L Total Protein 6.6 5.7-8.2 g/dL Albumin 3.4 3.2-4.8 g/dL Random Vancomycin Level 10.0 5-10 ug/mL Lactic Acid Level 1.1 0.4-2.0 mmol/L Eosinophils (%) (Auto) 0.4 0.0-7.0 % Eosinophils # (Auto) 0.1 0-0.8 10 ^3/uL Basophils # (Auto) 0 0-0.2 10 ^3/uL Nucleated Red Blood Cells 0.2 % Large Platelets Few Ovalocytes Few Hemoglobin A1c 4.9 <5.7 % A1C Magnesium Level 2.1 1.6-2.6 mg/dL Troponin I High Sensitivity 9 </=54 ng/L Lipase 33 12-53 U/L Test 12/19/24 04:44 Range/Units Urine Color Yellow Yellow Urine Clarity Turbid H Clear Urine pH 5.0 5.0-9.0 Urine Specific [place] 1.016 1.001-1.035 Urine Protein Trace H Negative Urine Ketones Negative Negative Urine Blood 3+ H Negative /uL Urine Nitrite Negative Negative Urine Bilirubin Negative Negative Urine Urobilinogen Normal Negative mg/dL Urine Leukocyte Esterase Negative Negative /uL Urine RBC 106 0 - 3 /hpf Urine Microscopic WBC 8 H 0-3 /HPF Urine Squamous Epithelial Cells Few <5 /hpf Urine Bacteria Few H None Seen /hpf Urine Hyaline Casts Few 0 - 2 /lpf Urine Mucus Few None Seen Urine Glucose Normal Normal mg/dL Microbiology Date/Time Source Procedure Growth Status 12/19/24 06:25 Blood Blood Culture - Preliminary NO GROWTH AFTER 24 HOURS OF INCUBATION. Resulted Problems(with codes): (1) Decreased pulses in feet (2) Uncontrolled diabetes mellitus (3) Multiple abscesses of both legs (4) Hyperkalemia (5) Generalized weakness (6) Wound infection (7) ABDIAZIZ (acute kidney injury) Plan/Recommendation ASSESSMENT: Patient is a 69 year old seen on the floor for a worsening ulcer PLAN: - The patients chart was reviewed, clinical findings were discussed with the patient, the etiologies of the conditions were discussed in detail, and a treatment plan was agreed to at this time, with both oral and written instructions provided. - reviewed advanced imaging - does not appear to be infectious gas on x-ray - recommend patient as vascular workup to look for any occlusion that may be able to open up to low the foot to heal - patient may need a TMA if not higher depending on vascular workup - dress with Betadine and keep dry All questions were answered and concerns addressed to the patient's satisfaction. The patient was given the phone number to the clinic and was told how to make contact with the clinic should any concerns or questions arise. Patient understands that if any questions or concerns arise prior to the next appointment, we should be contacted immediately. FOLLOW-UP: Continue to follow while inpatient Plan discussed with: Patient Date of Service: December 20, 2024 Billing Provider: RANDY QUIÑONES DPM Common Visit Codes: CONSULT ONLY Consultation Codes: [id number] CONSULT <80MIN RANDY QUIÑONES DPM December 20, 2024 12:18
--- NOTE | 2024-12-20 16:34 | DVHPN2 ---
Subjective 69-year-old male with past medical history of hypertension, hyperlipidemia, diabetes type 2, peripheral neuropathy, right 5th toe amputation, right thigh debridement, and left leg surgery who presents to the ED with generalized weakness x4 days along with right foot wound and pain. Patient states that he has had multiple falls not been able to walk even with using his front wheel walker. He reports that he just had a recent amputation here at [facility]. Upon examination discolored right foot noted. Changes from previous H/P or p: Changes Musculoskeletal: foot pain Skin: Other (Discoloration right foot) Objective Vitals Vital Signs Date Time Temp Pulse Resp B/P (MAP) Pulse Ox O2 Delivery O2 Flow Rate FiO2 12/20/24 11:34 61 16 118/54 12/20/24 08:00 97.9 97 97.9 12/20/24 08:00 Room Air* 0 21 Intake/Output Intake and Output 12/20/24 07:00 Intake Total 2500 ml Balance 2500 ml Intake Oral 150 ml IV Total 2350 ml General Appearance: Alert, Oriented X3, Cooperative, No acute distress Cardiovascular: Regular rate, Normal S1, Normal S2 Abdomen: Normal bowel sounds, Soft, No tenderness Extremities: No edema Medications Current Medications Medications Dose Ordered Sig/Anny Route Start Time Stop Time Status Last Admin Dose Admin Duloxetine HCl 2 mg DAILY PO 12/19/24 10:00 Patient Own Medication 1 tab DAILY PO 12/19/24 10:00 UNV Patient Own Medication 1 tab HS PO 12/19/24 22:00 UNV Gabapentin 300 mg TID PO 12/19/24 14:00 12/20/24 15:13 300 MG Acetaminophen/ Hydrocodone Bitart 1 tab Q4HP PRN PO 12/19/24 10:45 Ondansetron HCl 4 mg Q4HP PRN IV 12/19/24 10:45 Enoxaparin Sodium 30 mg DAILY SC 12/20/24 10:00 Cancel Acetaminophen 650 mg Q6HP PRN PO 12/19/24 10:45 Morphine Sulfate 2 mg Q4HPRN PRN IV 12/19/24 10:45 12/20/24 09:50 2 MG Vancomycin HCl 0 ml @ 0 mls/hr UD IV 12/19/24 10:45 Piperacillin Sod/ Tazobactam Sod 100 ml @ 25 mls/hr Q8HR IV 12/19/24 14:00 12/20/24 15:13 25 MLS/HR Diagnostic Test (Pha) 1 strip ACHS 12/19/24 11:30 12/20/24 13:38 1 STRIP Insulin Human Regular ACHS SC 12/19/24 11:30 12/20/24 13:40 2 UNITS Dextrose 50 ml UD PRN IV 12/19/24 10:45 Lisinopril 10 mg DAILY PO 12/20/24 10:00 12/20/24 09:43 10 MG Atorvastatin Calcium 80 mg HS PO 12/19/24 22:00 12/19/24 22:44 80 MG Enoxaparin Sodium 40 mg DAILY SC 12/20/24 10:00 12/20/24 09:44 40 MG Vancomycin HCl 200 ml @ 200 mls/hr Q12H IV 12/20/24 16:00 Laboratory Results Laboratory Tests 12/20/24 06:54 Chemistry Test 12/20/24 06:54 Albumin 3.4 g/dL (3.2-4.8) Calcium Level 9.5 mg/dL (8.7-10.4) Total Protein 6.6 g/dL (5.7-8.2) LFT Test 12/20/24 06:54 Alanine Aminotransferase (ALT) < 9 U/L (7-40) Alkaline Phosphatase 64 U/L (46-116) Aspartate Amino Transferase (AST) 13 U/L (13-40) Total Bilirubin 0.3 mg/dL (0.2-1.0) Urinalysis Test 12/19/24 04:44 Urine Color Yellow (Yellow) Urine Clarity Turbid (Clear) H Urine pH 5.0 (5.0-9.0) Urine Specific [place] 1.016 (1.001-1.035) Urine Protein Trace (Negative) H Urine Ketones Negative (Negative) Urine Blood 3+ /uL (Negative) H Urine Nitrite Negative (Negative) Urine Bilirubin Negative (Negative) Urine Urobilinogen Normal mg/dL (Negative) Urine Leukocyte Esterase Negative /uL (Negative) Urine RBC 106 /hpf (0 - 3) Urine Microscopic WBC 8 /HPF (0-3) H Urine Squamous Epithelial Cells Few /hpf (<5) Urine Bacteria Few /hpf (None Seen) H Urine Hyaline Casts Few /lpf (0 - 2) Urine Mucus Few (None Seen) Urine Glucose Normal mg/dL (Normal) Microbiology Microbiology Date/Time Source Procedure Growth Status 12/19/24 23:00 Nose MRSA Screen - Final Complete 12/19/24 06:25 Blood Blood Culture - Preliminary NO GROWTH AFTER 24 HOURS OF INCUBATION. Resulted Assessment/Plan Assessment/Plan Generalized weakness Right foot pain rule out cellulitis versus osteomyelitis with wound infection Leukocytosis likely due to cellulitis Hyperkalemia Anemia Hyponatremia ABDIAZIZ Acute hypoxic respiratory failure History of right 5th toe amputation HTN Mixed hyperlipidemia Type 2 DM Peripheral neuropathy PLAN: IV antibiotics Vanco Zosyn Podiatry consult Vascular consult Not stable to transfer Plan discussed with: Patient My Orders Orders - KEYANNA HUGHES MD Procedure Category Date Status Time *Podiatry Consult CONS 12/20/24 Transmitted Andrzej(Dv) 10:08 Date of Service: December 20, 2024 Billing Provider: KEYANNA HUGHES MD Common Visit Codes: [id number] INP/OBS CARE(HIGH) KEYANNA HUGHES MD December 20, 2024 16:34
[2024-12-20] MEDS: VANCOMYCIN 1GM/200ML PM 200 ML IV SCH (17:53)
[2024-12-21] VITALS (8 sets, daily range): BP systolic 133–156; BP diastolic 56–73; PULSE 60–81; RESP 16–18; TEMP 97.6–98.6; O2SAT 96–100
[2024-12-21 06:47] LABS: Basophils # (auto) 0 10 ^3/uL (0-0.2); Eosinophils # (auto) 0.1 10 ^3/uL (0-0.8); Lymphocytes # (auto) 1.5 10 ^3/uL (0.4-5.4); Monocytes # (auto) 0.6 10 ^3/uL (0-1.3); Monocytes % (auto) 8.4 % (0.0-12.0); White Blood Cell 7.7 10^3/uL (4.4-10.8)
[2024-12-21 06:53] LABS: Basophils % (auto) 0.3 % (0.0-2.0); Eosinophils % (auto) 1.6 % (0.0-7.0); Lymphocytes % (auto) 19.4 % (10.0-50.0); Mean Corpuscular Hemoglobin 22.8 pg (28.0-32.0); Mean Corpuscular Hgb Conc. 32.1 g/dL (32.0-36.0); Mean Corpuscular Volume 71.1 fL (80.0-100.0); Neutrophils # (auto) 5.4 10 ^3/uL (1.6-8.6); Neutrophils % (auto) 70.3 % (37.0-80.0); Platelet Count (auto) 308 10^3/uL (140-450); Red Blood Cells 3.94 10^6/uL (4.5-5.90); Red Cell Distribution Width 25.8 % (11.8-14.3)
[2024-12-21 06:54] LABS: Anion Gap 9 (5-15); Calcium 9.3 mg/dL (8.7-10.4); Potassium 3.9 mmol/L (3.5-5.1); Sodium 139 mmol/L (136-145)
[2024-12-21 07:00] LABS: BUN/Creatinine Ratio 28.1 (10.0-20.0)
[2024-12-21 07:06] LABS: Blood Urea Nitrogen 32 mg/dL (9-23); Carbon Dioxide 18 mmol/L (20-31); Chloride 112 mmol/L (98-107); Glucose 153 mg/dL (74-106); Magnesium 1.5 mg/dL (1.6-2.6)
--- NOTE | 2024-12-21 17:22 | DVHPN2 ---
Subjective Complains of pain in his right thigh and right foot Changes from previous H/P or p: Changes Musculoskeletal: foot pain Skin: Other (Discoloration right foot) Objective Vitals Vital Signs Date Time Temp Pulse Resp B/P (MAP) Pulse Ox O2 Delivery O2 Flow Rate FiO2 12/21/24 16:47 60 16 156/70 12/21/24 16:17 98.5 99 98.5 12/21/24 08:00 Room Air* 0 21 Intake/Output Intake and Output 12/21/24 07:00 Intake Total 2075 ml Output Total 1250 ml Balance 825 ml Intake Oral 1350 ml IV Total 725 ml Output Urine Total 1250 ml # Voids 1 # Bowel Movements 2 General Appearance: Alert, Oriented X3, Cooperative, No acute distress Cardiovascular: Regular rate, Normal S1, Normal S2 Abdomen: Normal bowel sounds, Soft, No tenderness Extremities: No edema Medications Current Medications Medications Dose Ordered Sig/Anny Route Start Time Stop Time Status Last Admin Dose Admin Duloxetine HCl 2 mg DAILY PO 12/19/24 10:00 Patient Own Medication 1 tab DAILY PO 12/19/24 10:00 UNV Patient Own Medication 1 tab HS PO 12/19/24 22:00 UNV Gabapentin 300 mg TID PO 12/19/24 14:00 12/21/24 15:07 300 MG Acetaminophen/ Hydrocodone Bitart 1 tab Q4HP PRN PO 12/19/24 10:45 Ondansetron HCl 4 mg Q4HP PRN IV 12/19/24 10:45 Enoxaparin Sodium 30 mg DAILY SC 12/20/24 10:00 Cancel Acetaminophen 650 mg Q6HP PRN PO 12/19/24 10:45 Morphine Sulfate 2 mg Q4HPRN PRN IV 12/19/24 10:45 12/21/24 16:16 2 MG Vancomycin HCl 0 ml @ 0 mls/hr UD IV 12/19/24 10:45 Piperacillin Sod/ Tazobactam Sod 100 ml @ 25 mls/hr Q8HR IV 12/19/24 14:00 12/21/24 15:08 25 MLS/HR Diagnostic Test (Pha) 1 strip ACHS 12/19/24 11:30 12/21/24 11:27 1 STRIP Insulin Human Regular ACHS SC 12/19/24 11:30 12/21/24 06:03 2 UNITS Dextrose 50 ml UD PRN IV 12/19/24 10:45 Lisinopril 10 mg DAILY PO 12/20/24 10:00 12/21/24 09:55 10 MG Atorvastatin Calcium 80 mg HS PO 12/19/24 22:00 12/20/24 21:19 80 MG Enoxaparin Sodium 40 mg DAILY SC 12/20/24 10:00 12/21/24 09:55 40 MG Vancomycin HCl 200 ml @ 200 mls/hr Q12H IV 12/20/24 16:00 12/21/24 03:34 200 MLS/HR Laboratory Results Laboratory Tests 12/21/24 05:00 Chemistry Test 12/21/24 05:00 Calcium Level 9.3 mg/dL (8.7-10.4) Magnesium Level 1.5 mg/dL (1.6-2.6) L Urinalysis Test 12/19/24 04:44 Urine Color Yellow (Yellow) Urine Clarity Turbid (Clear) H Urine pH 5.0 (5.0-9.0) Urine Specific [place] 1.016 (1.001-1.035) Urine Protein Trace (Negative) H Urine Ketones Negative (Negative) Urine Blood 3+ /uL (Negative) H Urine Nitrite Negative (Negative) Urine Bilirubin Negative (Negative) Urine Urobilinogen Normal mg/dL (Negative) Urine Leukocyte Esterase Negative /uL (Negative) Urine RBC 106 /hpf (0 - 3) Urine Microscopic WBC 8 /HPF (0-3) H Urine Squamous Epithelial Cells Few /hpf (<5) Urine Bacteria Few /hpf (None Seen) H Urine Hyaline Casts Few /lpf (0 - 2) Urine Mucus Few (None Seen) Urine Glucose Normal mg/dL (Normal) Microbiology Microbiology Date/Time Source Procedure Growth Status 12/19/24 23:00 Nose MRSA Screen - Final Complete 12/19/24 06:25 Blood Blood Culture - Preliminary NO GROWTH AFTER 48 HOURS OF INCUBATION. Resulted Assessment/Plan Assessment/Plan Generalized weakness Right foot pain rule out cellulitis versus osteomyelitis with wound infection Right thigh wound Leukocytosis likely due to cellulitis Hyperkalemia Anemia Hyponatremia ABDIAZIZ Acute hypoxic respiratory failure History of right 5th toe amputation HTN Mixed hyperlipidemia Type 2 DM Peripheral neuropathy PLAN: IV antibiotics Vanco Zosyn Podiatry consult Vascular consult Not stable to transfer 12/21/2024: Continue IV antibiotics vancomycin and Zosyn Continue Lovenox Lipitor Vascular consultation Podiatry consult appreciated Not stable for transfer Hypomagnesemia: Replace p.o. Plan discussed with: Patient My Orders Orders - KEYANNA HUGHES MD Procedure Category Date Status Time Wound Culture W/ Gs SANDOVAL 12/21/24 In Process 14:13 * Wound Consult CONS 12/21/24 Transmitted Date of Service: December 21, 2024 Billing Provider: KEYANNA HUGHES MD Common Visit Codes: [id number] INP/OBS CARE(HIGH) KEYANNA HUGHES MD December 21, 2024 17:22
[2024-12-21] MEDS: MAGNESIUM OXIDE 400 MG TAB PO ONE (17:51)
[2024-12-22 04:33] VITALS: BP 138/58; PULSE 64; RESP 18; TEMP 98.4; O2SAT 96
[2024-12-22 07:10] LABS: Basophils # (auto) 0 10 ^3/uL (0-0.2); Basophils % (auto) 0.5 % (0.0-2.0); Eosinophils # (auto) 0.1 10 ^3/uL (0-0.8); Hemoglobin 9.6 g/dL (13.5-17.5); Monocytes # (auto) 0.6 10 ^3/uL (0-1.3); Neutrophils # (auto) 3.6 10 ^3/uL (1.6-8.6); Nucleated Red Blood Cells % 0.1 %
[2024-12-22 07:11] LABS: Eosinophils % (auto) 1.7 % (0.0-7.0); Hematocrit 30.6 % (41.0-53.0); Lymphocytes # (auto) 1.8 10 ^3/uL (0.4-5.4); Lymphocytes % (auto) 29.1 % (10.0-50.0); Mean Corpuscular Hemoglobin 22.7 pg (28.0-32.0); Mean Corpuscular Hgb Conc. 31.5 g/dL (32.0-36.0); Mean Corpuscular Volume 72.1 fL (80.0-100.0); Monocytes % (auto) 9.9 % (0.0-12.0); Neutrophils % (auto) 58.8 % (37.0-80.0); Platelet Count (auto) 320 10^3/uL (140-450); Red Blood Cells 4.24 10^6/uL (4.5-5.90); Red Cell Distribution Width 25.1 % (11.8-14.3); White Blood Cell 6.2 10^3/uL (4.4-10.8)
[2024-12-22 08:00] VITALS: BP 170/64; PULSE 62; PULSE 77; RESP 18; TEMP 98; O2SAT 93
[2024-12-22 12:00] VITALS: BP 163/78; PULSE 76; RESP 18; TEMP 97.8; O2SAT 98
--- NOTE | 2024-12-22 12:56 | DVHPN2 ---
Subjective Complains of pain in his right thigh and right foot Awaiting vascular surgery evaluation Changes from previous H/P or p: Changes Musculoskeletal: foot pain Skin: Other (Discoloration right foot) Objective Vitals Vital Signs Date Time Temp Pulse Resp B/P (MAP) Pulse Ox O2 Delivery O2 Flow Rate FiO2 12/22/24 08:00 98.0 77 18 170/64 (99) 93 98.0 12/21/24 20:00 Room Air* 0 21 Intake/Output Intake and Output 12/22/24 07:00 Intake Total 1900 ml Output Total 1050 ml Balance 850 ml Intake Oral 1500 ml IV Total 400 ml Output Urine Total 1050 ml # Bowel Movements 5 General Appearance: Alert, Oriented X3, Cooperative, No acute distress Cardiovascular: Regular rate, Normal S1, Normal S2 Abdomen: Normal bowel sounds, Soft, No tenderness Extremities: No edema Medications Current Medications Medications Dose Ordered Sig/Anny Route Start Time Stop Time Status Last Admin Dose Admin Duloxetine HCl 2 mg DAILY PO 12/19/24 10:00 Patient Own Medication 1 tab DAILY PO 12/19/24 10:00 UNV Patient Own Medication 1 tab HS PO 12/19/24 22:00 UNV Gabapentin 300 mg TID PO 12/19/24 14:00 12/22/24 05:51 300 MG Acetaminophen/ Hydrocodone Bitart 1 tab Q4HP PRN PO 12/19/24 10:45 Ondansetron HCl 4 mg Q4HP PRN IV 12/19/24 10:45 Enoxaparin Sodium 30 mg DAILY SC 12/20/24 10:00 Cancel Acetaminophen 650 mg Q6HP PRN PO 12/19/24 10:45 Morphine Sulfate 2 mg Q4HPRN PRN IV 12/19/24 10:45 12/22/24 05:53 2 MG Vancomycin HCl 0 ml @ 0 mls/hr UD IV 12/19/24 10:45 Piperacillin Sod/ Tazobactam Sod 100 ml @ 25 mls/hr Q8HR IV 12/19/24 14:00 12/22/24 05:51 25 MLS/HR Diagnostic Test (Pha) 1 strip ACHS 12/19/24 11:30 12/22/24 06:01 1 STRIP Insulin Human Regular ACHS SC 12/19/24 11:30 12/22/24 06:01 2 UNITS Dextrose 50 ml UD PRN IV 12/19/24 10:45 Lisinopril 10 mg DAILY PO 12/20/24 10:00 12/21/24 09:55 10 MG Atorvastatin Calcium 80 mg HS PO 12/19/24 22:00 12/21/24 21:32 80 MG Enoxaparin Sodium 40 mg DAILY SC 12/20/24 10:00 12/21/24 09:55 40 MG Magnesium Oxide 800 mg DAILY PO 12/22/24 10:00 Laboratory Results Laboratory Tests 12/21/24 05:00 12/22/24 05:25 Urinalysis Test 12/19/24 04:44 Urine Color Yellow (Yellow) Urine Clarity Turbid (Clear) H Urine pH 5.0 (5.0-9.0) Urine Specific [place] 1.016 (1.001-1.035) Urine Protein Trace (Negative) H Urine Ketones Negative (Negative) Urine Blood 3+ /uL (Negative) H Urine Nitrite Negative (Negative) Urine Bilirubin Negative (Negative) Urine Urobilinogen Normal mg/dL (Negative) Urine Leukocyte Esterase Negative /uL (Negative) Urine RBC 106 /hpf (0 - 3) Urine Microscopic WBC 8 /HPF (0-3) H Urine Squamous Epithelial Cells Few /hpf (<5) Urine Bacteria Few /hpf (None Seen) H Urine Hyaline Casts Few /lpf (0 - 2) Urine Mucus Few (None Seen) Urine Glucose Normal mg/dL (Normal) Microbiology Microbiology Date/Time Source Procedure Growth Status 12/21/24 14:00 Thigh Right Gram Stain Pending Resulted 12/21/24 14:00 Thigh Right Wound Culture - Preliminary Resulted 12/19/24 06:25 Blood Blood Culture - Preliminary NO GROWTH AFTER 72 HOURS OF INCUBATION. Resulted Assessment/Plan Assessment/Plan Generalized weakness Right foot pain rule out cellulitis versus osteomyelitis with wound infection Right thigh wound Leukocytosis likely due to cellulitis Hyperkalemia Anemia Hyponatremia ABDIAZIZ Acute hypoxic respiratory failure History of right 5th toe amputation HTN Mixed hyperlipidemia Type 2 DM Peripheral neuropathy PLAN: IV antibiotics Vanco Zosyn Podiatry consult Vascular consult Not stable to transfer 12/21/2024: Continue IV antibiotics vancomycin and Zosyn Continue Lovenox Lipitor Vascular consultation Podiatry consult appreciated Not stable for transfer Hypomagnesemia: Replace p.o. 12/22/2024: Continue IV antibiotics Awaiting vascular surgery consultation Not stable for transfer to [facility] The rest of the management will depend on the hospital course Plan discussed with: Patient My Orders Orders - KEYANNA HUGHES MD Procedure Category Date Status Time Wound Culture W/ Gs SANDOVAL 12/21/24 In Process 14:13 * Wound Consult CONS 12/21/24 Transmitted Consult CONS 12/21/24 Transmitted Vascular/Endovascular 17:17 Magnesium Oxide PHA 12/22/24 In Process Tablet (Mag-Ox Tablet) 10:00 Date of Service: December 22, 2024 Billing Provider: KEYANNA HUGHES MD Common Visit Codes: [id number] INP/OBS CARE(HIGH) KEYANNA HUGHES MD December 22, 2024 12:56
[2024-12-22] MEDS: MAGNESIUM OXIDE 400 MG TAB PO SCH (13:03)
[2024-12-22 16:00] VITALS: BP 165/63; PULSE 74; RESP 18; TEMP 97.7; O2SAT 99
[2024-12-22] MEDS: VANCOMYCIN 750mg/150ml 150 ML IV ONE (18:42)
[2024-12-22 20:00] VITALS: PULSE 75; PULSE 85; RESP 18; O2SAT 99
[2024-12-22 21:00] VITALS: BP 151/63; PULSE 75; RESP 19; TEMP 97.8; O2SAT 99
[2024-12-23] VITALS (8 sets, daily range): BP systolic 91–176; BP diastolic 55–67; PULSE 58–79; RESP 18–19; TEMP 97.3–98.1; O2SAT 98–100
[2024-12-23] MEDS: cloNIDine HCL 0.1 MG TAB PO ONE (05:53)
[2024-12-23 06:42] LABS: Anion Gap 9 (5-15); Carbon Dioxide 20 mmol/L (20-31); Potassium 3.6 mmol/L (3.5-5.1); Sodium 143 mmol/L (136-145)
[2024-12-23 06:43] LABS: Calcium 9.3 mg/dL (8.7-10.4)
[2024-12-23 06:44] LABS: Chloride 114 mmol/L (98-107)
[2024-12-23 06:48] LABS: BUN/Creatinine Ratio 21.3 (10.0-20.0); Blood Urea Nitrogen 20 mg/dL (9-23); Glucose 111 mg/dL (74-106); Magnesium 1.5 mg/dL (1.6-2.6)
[2024-12-23 06:59] LABS: Basophils # (auto) 0 10 ^3/uL (0-0.2); Eosinophils # (auto) 0.2 10 ^3/uL (0-0.8); Hematocrit 30.6 % (41.0-53.0); Hemoglobin 9.7 g/dL (13.5-17.5); Monocytes # (auto) 0.6 10 ^3/uL (0-1.3); Neutrophils # (auto) 3.3 10 ^3/uL (1.6-8.6)
[2024-12-23 07:02] LABS: Basophils % (auto) 0.3 % (0.0-2.0); Eosinophils % (auto) 2.6 % (0.0-7.0); Lymphocytes % (auto) 32.6 % (10.0-50.0); Mean Corpuscular Hemoglobin 22.8 pg (28.0-32.0); Mean Corpuscular Hgb Conc. 31.7 g/dL (32.0-36.0); Mean Corpuscular Volume 71.8 fL (80.0-100.0); Monocytes % (auto) 9.9 % (0.0-12.0); Neutrophils % (auto) 54.6 % (37.0-80.0); Nucleated Red Blood Cells % 0.2 %; Platelet Count (auto) 324 10^3/uL (140-450); Red Blood Cells 4.26 10^6/uL (4.5-5.90)
[2024-12-23 07:19] LABS: Red Cell Distribution Width 25.8 % (11.8-14.3)
[2024-12-23 08:12] LABS: Anisocytosis Moderate; Hypochromia Moderate
[2024-12-23 08:13] LABS: Ovalocytes FEW
[2024-12-23 08:16] LABS: Platelet Estimate Adequate
--- NOTE | 2024-12-23 10:12 | DVHCONRES ---
Date Seen: December 23, 2024 Resident Creating Document: HAY SEGOVIA Jr., MD Referring Physician paulina Reason for Consultation pvd History of Present Illness 69-year-old male with past medical history of hypertension, hyperlipidemia, diabetes type 2, peripheral neuropathy, right 5th toe amputation, right thigh debridement, and left leg surgery who presents to the ED with generalized weakness x4 days along with right foot wound and pain. Patient states that he has had multiple falls not been able to walk even with using his front wheel walker. Past Medical History hypertension, hyperlipidemia, diabetes type 2, peripheral neuropathy, right 5th toe amputation, right thigh debridement Past Surgical History right 5th toe amp. right thigh debridement, right leg angiogram endovascular revascularization Family History: Patient reports no known family medical history. Social History smoke, +heroin use Allergies: Coded Allergies: NO KNOWN ALLERGIES (Unverified , 11/19/24) Home Meds Reported Medications Gabapentin (Gabapentin) 300 Mg Cap, CAP PO 12/19/24 Metformin Hydrochloride (Metformin Hcl) 500 Mg Tab, 1 TAB PO BID 11/19/24 Lisinopril (Lisinopril) 10 Mg Tab, 1 TAB PO DAILY 11/19/24 Glipizide (Glipizide) 5 Mg Tab, 1 TAB PO DAILY 11/19/24 Duloxetine HCl (Duloxetine HCl) 30 Mg Cap, 2 CAP PO DAILY 11/19/24 Rosuvastatin Calcium (Rosuvastatin Calcium) 20 Mg Tab, 1 TAB PO HS 11/19/24 Review of Systems All systems reviewed otherwise negative other than hpi Vital Signs Vital Signs Date Time Temp Pulse Resp B/P (MAP) Pulse Ox O2 Delivery O2 Flow Rate FiO2 12/23/24 08:55 130/53 12/23/24 08:00 Room Air* 0 21 12/23/24 07:18 75 16 12/23/24 05:00 97.5 100 97.5 Physical Exam right thigh wound healthy granulating tissue right foot black eschar over amputation site. tips of toes dry black eschar from old blister. palp. femoral pulses non palp. pedal pulses Labs/Diagnostic Data Labs Test 12/23/24 06:23 12/23/24 05:41 12/21/24 15:22 12/20/24 06:54 Range/Units POC Glucose 124 H 70-106 mg/dl White Blood Count 6.0 4.4-10.8 10^3/uL Red Blood Count 4.26 L 4.5-5.90 10^6/uL Hemoglobin 9.7 L 13.5-17.5 g/dL Hematocrit 30.6 L 41.0-53.0 % Mean Corpuscular Volume 71.8 L 80.0-100.0 fL Mean Corpuscular Hemoglobin 22.8 L 28.0-32.0 pg Mean Corpuscular Hemoglobin Concent 31.7 L 32.0-36.0 g/dL Red Cell Distribution Width 25.8 H 11.8-14.3 % Platelet Count 324 140-450 10^3/uL Mean Platelet Volume 6.9 6.9-10.8 fL Neutrophils (%) (Auto) 54.6 37.0-80.0 % Lymphocytes (%) (Auto) 32.6 10.0-50.0 % Monocytes (%) (Auto) 9.9 0.0-12.0 % Eosinophils (%) (Auto) 2.6 0.0-7.0 % Basophils (%) (Auto) 0.3 0.0-2.0 % Neutrophils # (Auto) 3.3 1.6-8.6 10 ^3/uL Lymphocytes # (Auto) 2.0 0.4-5.4 10 ^3/uL Monocytes # (Auto) 0.6 0-1.3 10 ^3/uL Eosinophils # (Auto) 0.2 0-0.8 10 ^3/uL Basophils # (Auto) 0 0-0.2 10 ^3/uL Nucleated Red Blood Cells 0.2 % Platelet Estimate Adequate Hypochromasia (manual) Moderate Poikilocytosis (manual) Slight Anisocytosis (manual) Moderate Microcytosis Moderate Ovalocytes Few [place] Cells Few Schistocytes Few Sodium Level 143 136-145 mmol/L Potassium Level 3.6 3.5-5.1 mmol/L Chloride Level 114 H 98-107 mmol/L Carbon Dioxide Level 20 20-31 mmol/L Anion Gap 9 5-15 Blood Urea Nitrogen 20 9-23 mg/dL Creatinine 0.94 0.700-1.30 mg/dL Glomerular Filtration Rate Calc 88 >90 mL/min BUN/Creatinine Ratio 21.3 H 10.0-20.0 Serum Glucose 111 H 74-106 mg/dL Calcium Level 9.3 8.7-10.4 mg/dL Magnesium Level 1.5 L 1.6-2.6 mg/dL Random Vancomycin Level 15.8 H 5-10 ug/mL Vancomycin Level Trough 23.8 H 5-10 ug/mL Differential Total Cells Counted 100.0 100 Neutrophils % (Manual) 71 37.0-80.0 Band Neutrophils % (Manual) 0 Lymphocytes % (Manual) 12 10.0-50.0 Monocytes % (Manual) 14 H 0-12 Eosinophils % (Manual) 1 0-7 Basophils % (Manual) 0 0.0-2.0 Metamyelocytes % (manual) 0 Myelocytes % (Manual) 0 Promyelocytes % (Manual) 0 Blast Cells % (Manual) 2 Reactive Lymphocytes 0 Total Bilirubin 0.3 0.2-1.0 mg/dL Aspartate Amino Transferase (AST) 13 13-40 U/L Alanine Aminotransferase (ALT) < 9 7-40 U/L Alkaline Phosphatase 64 46-116 U/L Total Protein 6.6 5.7-8.2 g/dL Albumin 3.4 3.2-4.8 g/dL Test 12/19/24 06:25 12/19/24 05:08 12/19/24 04:44 Range/Units Lactic Acid Level 1.1 0.4-2.0 mmol/L Large Platelets Few Hemoglobin A1c 4.9 <5.7 % A1C Troponin I High Sensitivity 9 </=54 ng/L Lipase 33 12-53 U/L Urine Color Yellow Yellow Urine Clarity Turbid H Clear Urine pH 5.0 5.0-9.0 Urine Specific [place] 1.016 1.001-1.035 Urine Protein Trace H Negative Urine Ketones Negative Negative Urine Blood 3+ H Negative /uL Urine Nitrite Negative Negative Urine Bilirubin Negative Negative Urine Urobilinogen Normal Negative mg/dL Urine Leukocyte Esterase Negative Negative /uL Urine RBC 106 0 - 3 /hpf Urine Microscopic WBC 8 H 0-3 /HPF Urine Squamous Epithelial Cells Few <5 /hpf Urine Bacteria Few H None Seen /hpf Urine Hyaline Casts Few 0 - 2 /lpf Urine Mucus Few None Seen Urine Glucose Normal Normal mg/dL Microbiology Date/Time Source Procedure Growth Status 12/21/24 14:00 Thigh Right Gram Stain - Final Resulted 12/21/24 14:00 Thigh Right Wound Culture - Preliminary Resulted 12/19/24 06:25 Blood Blood Culture - Preliminary NO GROWTH AFTER 72 HOURS OF INCUBATION. Resulted Assessment Severe pvd s/p right 5 th toe amputation. continue with betadine cleaning daily, offloading of the right foot. no surgical intervention at this time. Discussed with patient the importance of smoke cessation to lower risk of limb loss. Plan/Recommendation Severe pvd s/p right 5 th toe amputation. continue with betadine cleaning daily, offloading of the right foot. no surgical intervention at this time. Discussed with patient the importance of smoke cessation to lower risk of limb loss. Plan discussed with: Patient HAY SEGOVIA Jr., MD December 23, 2024 10:12
--- NOTE | 2024-12-23 11:20 | DVHPN2 ---
Progress Note Date Seen: December 23, 2024 Medical Necessity Reason Pt with a Central, PICC or Fol: No Subjective Patient reports: No new complaints Review of Systems: HEENT:Normal, CVS:Normal, RESPIRATORY:Normal, GI:Normal, :Normal, MSK:Normal, NEURO:Normal Objective vital signs Vital Sign Date Time Temp Pulse Resp B/P (MAP) Pulse Ox O2 Delivery O2 Flow Rate FiO2 12/23/24 09:00 97.5 61 18 149/66 (93) 100 97.5 12/23/24 08:00 Room Air* 0 21 Total Intake and Output 12/22/24 12/22/24 12/23/24 15:00 23:00 07:00 Intake Total 100 ml 1540 ml 800 ml Output Total 675 ml Balance 100 ml 1540 ml 125 ml medications Current Medications Medications Dose Ordered Sig/Anny Route Start Time Stop Time Status Last Admin Dose Admin Duloxetine HCl 2 mg DAILY PO 12/19/24 10:00 Patient Own Medication 1 tab DAILY PO 12/19/24 10:00 UNV Patient Own Medication 1 tab HS PO 12/19/24 22:00 UNV Gabapentin 300 mg TID PO 12/19/24 14:00 12/23/24 05:53 300 MG Acetaminophen/ Hydrocodone Bitart 1 tab Q4HP PRN PO 12/19/24 10:45 Ondansetron HCl 4 mg Q4HP PRN IV 12/19/24 10:45 Enoxaparin Sodium 30 mg DAILY SC 12/20/24 10:00 Cancel Acetaminophen 650 mg Q6HP PRN PO 12/19/24 10:45 Morphine Sulfate 2 mg Q4HPRN PRN IV 12/19/24 10:45 12/23/24 06:48 2 MG Vancomycin HCl 0 ml @ 0 mls/hr UD IV 12/19/24 10:45 Piperacillin Sod/ Tazobactam Sod 100 ml @ 25 mls/hr Q8HR IV 12/19/24 14:00 12/23/24 05:54 25 MLS/HR Diagnostic Test (Pha) 1 strip ACHS 12/19/24 11:30 12/23/24 06:37 1 STRIP Insulin Human Regular ACHS SC 12/19/24 11:30 12/22/24 22:46 6 UNITS Dextrose 50 ml UD PRN IV 12/19/24 10:45 Lisinopril 10 mg DAILY PO 12/20/24 10:00 12/23/24 08:55 10 MG Atorvastatin Calcium 80 mg HS PO 12/19/24 22:00 12/22/24 22:38 80 MG Enoxaparin Sodium 40 mg DAILY SC 12/20/24 10:00 12/23/24 08:53 40 MG Magnesium Oxide 800 mg DAILY PO 12/22/24 10:00 12/23/24 08:55 800 MG Vancomycin HCl 100 ml @ 100 mls/hr Q12H IV 12/23/24 12:00 Examination: GENERAL:Normal, HEENT:Normal, NECK:Normal, LUNGS:Normal, CVS:Normal, ABDOMEN:Normal, MSK:Normal, MSK:Abnormal (right foot ulcer/early gangrene), SKIN:Normal, NEURO:Normal, :Normal laboratory and microbiology Laboratory Tests 12/23/24 05:41 Test 12/23/24 05:41 Range/Units Serum Glucose 111 H 74-106 mg/dL Microbiology Date/Time Source Procedure Growth Status 12/21/24 14:00 Thigh Right Gram Stain - Final Resulted 12/21/24 14:00 Thigh Right Wound Culture - Preliminary Resulted 12/19/24 06:25 Blood Blood Culture - Preliminary NO GROWTH AFTER 72 HOURS OF INCUBATION. Resulted Problem List/Assessment/Plan Problem List/Assessment/Plan * right foot ulcer/ early gangrene with cellulitis with sepsis: iv antibiotics, mri foot * s/p Necrotizing fasciitis with sepsis due to MRSA and enterococcus faecalis status post debridement. * Right foot toe gangrene, status post amputation. 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 * Drug abuse with heroin: continued use. * Diabetes mellitus: ssi * Hypertension. * Hyperlipidemia. * Anemia. * Hepatitis C positive. advance care planning- full code- time spent 19 mins unstable for transfer Plan discussed with: Patient My Orders My Orders Orders - ERIKA BENITEZ MD Procedure Category Date Status Time Magnesium Papito PHA 12/23/24 Transmitted 12:00 * Public Service Representative CONS 12/23/24 Transmitted Consult Drug Screen LAB 12/23/24 Transmitted 11:14 Basic Metabolic Panel LAB 12/24/24 Verified 06:00 Complete Blood Count LAB 12/24/24 Verified 06:00 Magnesium LAB 12/24/24 Verified 05:00 Discontinue Tele KEON 12/23/24 Transmitted 11:14 Transfer Orders XFER 12/23/24 Transmitted 11:14 Dietary Evaluation Review Comments: 1. Avoid Cigar, 2. encourage and monitor PO intake to meet at least 75% of his needs 3. Try Walt BID for wound healing. Expected Outcomes/Goals: gradual wt gain. healed wounds Date of Service: December 23, 2024 Billing Provider: ERIKA BENITEZ MD Common Visit Codes: [id number] INP/OBS CARE(HIGH) Secondary Visit Codes: [id number] CARE PLAN 30 MINUTES ERIKA BENITEZ MD December 23, 2024 11:20
[2024-12-23] MEDS: MAGNESIUM SULFATE 1GM/100ML 100 ML IV SCH (11:46)
[2024-12-23] MEDS: VANCOMYCIN 750mg/100mL D5W or NS KIT IV SCH (12:00)
--- NOTE | 2024-12-23 15:31 | DVH ---
EXAM: MRI MRI R FOOT WO CONTRAST HISTORY: r/o om COMPARISON: CT CT R FOOT WO CONTRAST on DOS: 12/19/24 TECHNIQUE: Multiplanar, multisequence MRI was performed. FINDINGS: Study quality is severely compromised by patient motion. There is soft tissue swelling in the plantar surfaces of the midfoot. Limited views of the bony elements reveal no destructive changes of the tarsals metatarsals or phalan ges. IMPRESSION: 1. Study is severely compromised by motion artifact. It is suggested that 3-phase bone scan be perfor med to rule out osteomyelitis unless the patient's foot can be stabilized to prevent motion artifact
[2024-12-24] VITALS (8 sets, daily range): BP systolic 121–170; BP diastolic 57–85; PULSE 53–77; RESP 16–20; TEMP 97.6–98.5; O2SAT 96–100
[2024-12-24 01:38] LABS: Opiate Scree,Urine Neg (NEGATIVE)
[2024-12-24 01:47] LABS: Amphetamine Screen, Urine Neg (NEGATIVE); Barbiturate Scree,Urine Neg (NEGATIVE); Benzodiazephine Screen, Urine Neg (NEGATIVE); Cannabinoid Screen, Urine Neg (NEGATIVE); Cocaine Screen, Urine Neg (NEGATIVE); Phencyclidine Screen, Urine Neg (NEGATIVE)
[2024-12-24 07:08] LABS: Anion Gap 9 (5-15); Carbon Dioxide 20 mmol/L (20-31); Potassium 3.8 mmol/L (3.5-5.1); Sodium 143 mmol/L (136-145)
[2024-12-24 07:09] LABS: Calcium 9.1 mg/dL (8.7-10.4)
[2024-12-24 07:14] LABS: BUN/Creatinine Ratio 21.5 (10.0-20.0); Blood Urea Nitrogen 20 mg/dL (9-23)
[2024-12-24 07:15] LABS: Chloride 114 mmol/L (98-107); Eosinophils # (auto) 0.2 10 ^3/uL (0-0.8); Glucose 131 mg/dL (74-106); Hematocrit 29.9 % (41.0-53.0); Hemoglobin 9.4 g/dL (13.5-17.5); Lymphocytes # (auto) 2.2 10 ^3/uL (0.4-5.4); Neutrophils % (auto) 50.9 % (37.0-80.0)
[2024-12-24 07:18] LABS: Basophils # (auto) 0.1 10 ^3/uL (0-0.2); Basophils % (auto) 0.9 % (0.0-2.0); Eosinophils % (auto) 3.1 % (0.0-7.0); Lymphocytes % (auto) 34.3 % (10.0-50.0); Mean Corpuscular Hemoglobin 22.8 pg (28.0-32.0); Mean Corpuscular Hgb Conc. 31.3 g/dL (32.0-36.0); Mean Corpuscular Volume 72.9 fL (80.0-100.0); Monocytes # (auto) 0.7 10 ^3/uL (0-1.3); Monocytes % (auto) 10.8 % (0.0-12.0); Neutrophils # (auto) 3.2 10 ^3/uL (1.6-8.6); Nucleated Red Blood Cells % 0.3 %; Platelet Count (auto) 293 10^3/uL (140-450); Red Blood Cells 4.11 10^6/uL (4.5-5.90); Red Cell Distribution Width 25.8 % (11.8-14.3); White Blood Cell 6.4 10^3/uL (4.4-10.8)
--- NOTE | 2024-12-24 09:49 | DVHPN2 ---
Progress Note Date Seen: December 24, 2024 Medical Necessity Reason Pt with a Central, PICC or Fol: No Subjective Patient reports: No new complaints Review of Systems: HEENT:Normal, CVS:Normal, RESPIRATORY:Normal, GI:Normal, :Normal, MSK:Normal, NEURO:Normal Objective vital signs Vital Sign Date Time Temp Pulse Resp B/P (MAP) Pulse Ox O2 Delivery O2 Flow Rate FiO2 12/24/24 06:55 77 20 127/62 12/24/24 05:00 97.7 98 97.7 12/23/24 20:00 Room Air* 0 21 Total Intake and Output 12/23/24 12/23/24 12/24/24 15:00 23:00 07:00 Intake Total 300 ml 1050 ml 900 ml Output Total 600 ml 920 ml Balance 300 ml 450 ml -20 ml medications Current Medications Medications Dose Ordered Sig/Anny Route Start Time Stop Time Status Last Admin Dose Admin Duloxetine HCl 2 mg DAILY PO 12/19/24 10:00 Patient Own Medication 1 tab DAILY PO 12/19/24 10:00 UNV Patient Own Medication 1 tab HS PO 12/19/24 22:00 UNV Gabapentin 300 mg TID PO 12/19/24 14:00 12/24/24 05:31 300 MG Acetaminophen/ Hydrocodone Bitart 1 tab Q4HP PRN PO 12/19/24 10:45 Ondansetron HCl 4 mg Q4HP PRN IV 12/19/24 10:45 Enoxaparin Sodium 30 mg DAILY SC 12/20/24 10:00 Cancel Acetaminophen 650 mg Q6HP PRN PO 12/19/24 10:45 Morphine Sulfate 2 mg Q4HPRN PRN IV 12/19/24 10:45 12/24/24 06:55 2 MG Vancomycin HCl 0 ml @ 0 mls/hr UD IV 12/19/24 10:45 Piperacillin Sod/ Tazobactam Sod 100 ml @ 25 mls/hr Q8HR IV 12/19/24 14:00 12/24/24 05:31 25 MLS/HR Diagnostic Test (Pha) 1 strip ACHS 12/19/24 11:30 12/24/24 06:18 1 STRIP Insulin Human Regular ACHS SC 12/19/24 11:30 12/23/24 22:33 2 UNITS Dextrose 50 ml UD PRN IV 12/19/24 10:45 Lisinopril 10 mg DAILY PO 12/20/24 10:00 12/23/24 08:55 10 MG Atorvastatin Calcium 80 mg HS PO 12/19/24 22:00 12/23/24 22:42 80 MG Enoxaparin Sodium 40 mg DAILY SC 12/20/24 10:00 12/23/24 08:53 40 MG Magnesium Oxide 800 mg DAILY PO 12/22/24 10:00 12/23/24 08:55 800 MG Vancomycin HCl 100 ml @ 100 mls/hr Q12H IV 12/23/24 12:00 12/24/24 00:38 100 MLS/HR Examination: GENERAL:Normal, HEENT:Normal, NECK:Normal, LUNGS:Normal, CVS:Normal, ABDOMEN:Normal, MSK:Normal, MSK:Abnormal (right foot ulcer/?gangrene), SKIN:Normal, NEURO:Normal, :Normal laboratory and microbiology Laboratory Tests 12/24/24 05:41 Test 12/24/24 05:41 Range/Units Serum Glucose 131 H 74-106 mg/dL Microbiology Date/Time Source Procedure Growth Status 12/21/24 14:00 Thigh Right Gram Stain - Final Resulted 12/21/24 14:00 Thigh Right Wound Culture - Preliminary Resulted 12/19/24 06:25 Blood Blood Culture - Final NO GROWTH AFTER 5 DAYS OF INCUBATION. Complete Problem List/Assessment/Plan Problem List/Assessment/Plan * right foot ulcer/ early gangrene with cellulitis with sepsis: iv antibiotics, bone scan * s/p Necrotizing fasciitis with sepsis due to MRSA and enterococcus faecalis status post debridement. * Right foot toe gangrene, status post amputation. 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 * Drug abuse with heroin: continued use. * Diabetes mellitus: ssi * Hypertension. * Hyperlipidemia. * Anemia. * Hepatitis C positive. advance care planning- full code- time spent 19 mins unstable for transfer Plan discussed with: Patient My Orders My Orders Orders - ERIKA BENITEZ MD Procedure Category Date Status Time * Drafter Construction CONS 12/23/24 Transmitted Consult Discontinue Tele KEON 12/23/24 In Process 11:14 Transfer Orders XFER 12/23/24 Transmitted 11:14 Nm Bone 3 Phase NM 12/24/24 Logged 09:41 Dietary Evaluation Review Comments: 1. Avoid Cigar, 2. encourage and monitor PO intake to meet at least 75% of his needs 3. Try Walt BID for wound healing. Expected Outcomes/Goals: gradual wt gain. healed wounds Date of Service: December 24, 2024 Billing Provider: ERIKA BENITEZ MD Common Visit Codes: [id number] INP/OBS CARE(HIGH) ERIKA BENITEZ MD December 24, 2024 09:49
[2024-12-24] MEDS: DULoxetine HCL 30 MG CAP PO ONE (12:59)
[2024-12-25] VITALS (8 sets, daily range): BP systolic 134–162; BP diastolic 62–78; PULSE 64–86; RESP 16–20; TEMP 97.2–98.7; O2SAT 97–100
[2024-12-25] MEDS: cloNIDine HCL 0.1 MG TAB PO ONE (01:30)
[2024-12-25] MEDS: DULoxetine HCL 30 MG CAP PO SCH (09:10)
[2024-12-25] MEDS: HYDROcodone-ACET 5/325MG TAB PO PRN (09:21)
[2024-12-25] MEDS ORDERED: DULoxetine HCL 30 MG CAP PO SCH (10:00)
[2024-12-25] MEDS ORDERED: PANTOPRAZOLE 40 MG TAB PO SCH (10:00)
--- NOTE | 2024-12-25 10:16 | DVHPN2 ---
Progress Note Date Seen: December 25, 2024 Medical Necessity Reason Pt with a Central, PICC or Fol: No Subjective Patient reports: No new complaints Review of Systems: HEENT:Normal, CVS:Normal, RESPIRATORY:Normal, GI:Normal, :Normal, MSK:Normal, NEURO:Normal Objective vital signs Vital Sign Date Time Temp Pulse Resp B/P (MAP) Pulse Ox O2 Delivery O2 Flow Rate FiO2 12/25/24 09:18 125/58 12/25/24 05:00 97.4 69 18 100 97.4 12/24/24 19:52 Room Air* 0 21 Total Intake and Output 12/24/24 12/24/24 12/25/24 15:00 23:00 07:00 Intake Total 850 ml 1220 ml 1000 ml Output Total 700 ml 1060 ml Balance 850 ml 520 ml -60 ml medications Current Medications Medications Dose Ordered Sig/Anny Route Start Time Stop Time Status Last Admin Dose Admin Patient Own Medication 1 tab DAILY PO 12/19/24 10:00 UNV Patient Own Medication 1 tab HS PO 12/19/24 22:00 UNV Gabapentin 300 mg TID PO 12/19/24 14:00 12/25/24 05:05 300 MG Acetaminophen/ Hydrocodone Bitart 1 tab Q4HP PRN PO 12/19/24 10:45 12/25/24 09:21 1 TAB Ondansetron HCl 4 mg Q4HP PRN IV 12/19/24 10:45 Enoxaparin Sodium 30 mg DAILY SC 12/20/24 10:00 Cancel Acetaminophen 650 mg Q6HP PRN PO 12/19/24 10:45 Morphine Sulfate 2 mg Q4HPRN PRN IV 12/19/24 10:45 12/25/24 02:01 2 MG Vancomycin HCl 0 ml @ 0 mls/hr UD IV 12/19/24 10:45 Piperacillin Sod/ Tazobactam Sod 100 ml @ 25 mls/hr Q8HR IV 12/19/24 14:00 12/25/24 05:05 25 MLS/HR Diagnostic Test (Pha) 1 strip ACHS 12/19/24 11:30 12/25/24 07:28 1 STRIP Insulin Human Regular ACHS SC 12/19/24 11:30 12/24/24 21:39 2 UNITS Dextrose 50 ml UD PRN IV 12/19/24 10:45 Lisinopril 10 mg DAILY PO 12/20/24 10:00 12/25/24 09:18 10 MG Atorvastatin Calcium 80 mg HS PO 12/19/24 22:00 12/24/24 21:37 80 MG Enoxaparin Sodium 40 mg DAILY SC 12/20/24 10:00 12/25/24 09:10 40 MG Magnesium Oxide 800 mg DAILY PO 12/22/24 10:00 12/25/24 09:09 800 MG Duloxetine HCl 60 mg DAILY PO 12/25/24 10:00 12/25/24 09:10 60 MG Pantoprazole Sodium 40 mg DAILY PO 12/25/24 10:00 Cancel Examination: GENERAL:Normal, HEENT:Normal, NECK:Normal, LUNGS:Normal, CVS:Normal, ABDOMEN:Normal, MSK:Normal, MSK:Abnormal (right foot ulcer), SKIN:Normal, NEURO:Normal, :Normal laboratory and microbiology Laboratory Tests 12/25/24 09:31 12/24/24 05:41 Test 12/24/24 05:41 Range/Units Serum Glucose 131 H 74-106 mg/dL Microbiology Date/Time Source Procedure Growth Status 12/21/24 14:00 Thigh Right Gram Stain - Final Complete 12/21/24 14:00 Thigh Right Wound Culture - Final Complete 12/19/24 06:25 Blood Blood Culture - Final NO GROWTH AFTER 5 DAYS OF INCUBATION. Complete Problem List/Assessment/Plan Problem List/Assessment/Plan * right foot ulcer/ early gangrene with cellulitis with sepsis: iv antibiotics, bone scan today * s/p Necrotizing fasciitis with sepsis due to MRSA and enterococcus faecalis status post debridement. * Right foot toe gangrene, status post amputation. 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 * Drug abuse with heroin: continued use. * Diabetes mellitus: ssi * Hypertension. * Hyperlipidemia. * Anemia. * Hepatitis C positive. advance care planning- full code- time spent 19 mins unstable for transfer Plan discussed with: Other (rn) My Orders My Orders Orders - ERIKA BENITEZ MD Procedure Category Date Status Time Apply Barrier Cream KEON 12/24/24 In Process 12:43 Stat Ekg For Chest KEON 12/25/24 In Process Pain 01:39 Dietary Evaluation Review Comments: 1. Avoid Cigar, 2. encourage and monitor PO intake to meet at least 75% of his needs 3. Try Walt BID for wound healing. Expected Outcomes/Goals: gradual wt gain. healed wounds Date of Service: December 25, 2024 Billing Provider: ERIKA BENITEZ MD Common Visit Codes: [id number] INP/OBS CARE(HIGH) ERIKA BENITEZ MD December 25, 2024 10:16
[2024-12-25] MEDS: VANCOMYCIN 1GM/200ML PM 200 ML IV SCH (12:11)
--- NOTE | 2024-12-25 15:47 | DVH ---
CLINICAL INFORMATION: 69 years old, Male; RIGHT FOOT. Infection. Rule out osteomyelitis. TECHNIQUE: Following the intravenous administration of 22 mCi technetium 99m-MDP, 3-phase bone scan was performed. Images of the bilateral feet were obtained in the anterior and posterior projections i n the immediate flow phase. Blood pool images were obtained in the anterior, plantar, and right and l eft lateral projections. Delayed images were obtained in the anterior, plantar, and right and left la teral projections. COMPARISON: Radiographs dated 12/19/2024. Correlation also made to MRI dated 12/23/2024, which was li mited due to motion artifact. FINDINGS: There is diffusely increased flow to the right foot compared to the left on the immediate f low images, may be due to cellulitis. No focal uptake is seen in the right foot on all 3 phases to nugent ggest osteomyelitis. IMPRESSION: 1. No focal uptake is seen in the right foot on all 3 phases to suggest osteomyelitis. 2. Diffusely increased uptake in the right foot on the immediate flow images, may be due to celluliti s in the appropriate clinical setting. Correlate with clinical findings.
[2024-12-26 01:00] VITALS: BP 155/68; PULSE 65; RESP 18; TEMP 98.5; O2SAT 96
[2024-12-26 05:00] VITALS: BP 137/67; PULSE 83; RESP 18; TEMP 97.9; O2SAT 98
--- NOTE | 2024-12-26 07:56 | ECG ---
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
[2024-12-26 08:33] VITALS: BP 153/77; PULSE 65; RESP 17; TEMP 97.5; O2SAT 100
--- NOTE | 2024-12-26 10:42 | DVHDS2 ---
Discharge Summary Date of Admission December 19, 2024 at 10:36 Date of Discharge: December 26, 2024 Labs/Diagnostic Data: Laboratory Results Test 12/26/24 07:18 12/26/24 06:22 12/25/24 09:31 12/24/24 22:51 Creatinine 0.89 mg/dL (0.700-1.30) Glomerular Filtration Rate Calc 93 mL/min (>90) POC Glucose 106 mg/dl (70-106) Random Vancomycin Level 16.4 ug/mL (5-10) Vancomycin Level Trough 21.2 ug/mL (5-10) Test 12/24/24 05:41 12/24/24 00:45 12/23/24 05:41 12/20/24 06:54 White Blood Count 6.4 10^3/uL (4.4-10.8) Red Blood Count 4.11 10^6/uL (4.5-5.90) Hemoglobin 9.4 g/dL (13.5-17.5) Hematocrit 29.9 % (41.0-53.0) Mean Corpuscular Volume 72.9 fL (80.0-100.0) Mean Corpuscular Hemoglobin 22.8 pg (28.0-32.0) Mean Corpuscular Hemoglobin Concent 31.3 g/dL (32.0-36.0) Red Cell Distribution Width 25.8 % (11.8-14.3) Platelet Count 293 10^3/uL (140-450) Mean Platelet Volume 7.0 fL (6.9-10.8) Neutrophils (%) (Auto) 50.9 % (37.0-80.0) Lymphocytes (%) (Auto) 34.3 % (10.0-50.0) Monocytes (%) (Auto) 10.8 % (0.0-12.0) Eosinophils (%) (Auto) 3.1 % (0.0-7.0) Basophils (%) (Auto) 0.9 % (0.0-2.0) Neutrophils # (Auto) 3.2 10 ^3/uL (1.6-8.6) Lymphocytes # (Auto) 2.2 10 ^3/uL (0.4-5.4) Monocytes # (Auto) 0.7 10 ^3/uL (0-1.3) Eosinophils # (Auto) 0.2 10 ^3/uL (0-0.8) Basophils # (Auto) 0.1 10 ^3/uL (0-0.2) Nucleated Red Blood Cells 0.3 % Sodium Level 143 mmol/L (136-145) Potassium Level 3.8 mmol/L (3.5-5.1) Chloride Level 114 mmol/L (98-107) Carbon Dioxide Level 20 mmol/L (20-31) Anion Gap 9 (5-15) Blood Urea Nitrogen 20 mg/dL (9-23) BUN/Creatinine Ratio 21.5 (10.0-20.0) Serum Glucose 131 mg/dL (74-106) Calcium Level 9.1 mg/dL (8.7-10.4) Magnesium Level 2.0 mg/dL (1.6-2.6) Urine Opiates Screen Neg (NEGATIVE) Urine Fentanyl Screen Neg (NEGATIVE) Urine Barbiturates Screen Neg (NEGATIVE) Urine Phencyclidine Screen Neg (NEGATIVE) Urine Amphetamines Screen Neg (NEGATIVE) Urine Benzodiazepines Screen Neg (NEGATIVE) Urine Cocaine Screen Neg (NEGATIVE) Urine Cannabinoids Screen Neg (NEGATIVE) Platelet Estimate Adequate Hypochromasia (manual) Moderate Poikilocytosis (manual) Slight Anisocytosis (manual) Moderate Microcytosis Moderate Ovalocytes Few [place] Cells Few Schistocytes Few Differential Total Cells Counted 100.0 (100) Neutrophils % (Manual) 71 (37.0-80.0) Band Neutrophils % (Manual) 0 Lymphocytes % (Manual) 12 (10.0-50.0) Monocytes % (Manual) 14 (0-12) Eosinophils % (Manual) 1 (0-7) Basophils % (Manual) 0 (0.0-2.0) Metamyelocytes % (manual) 0 Myelocytes % (Manual) 0 Promyelocytes % (Manual) 0 Blast Cells % (Manual) 2 Reactive Lymphocytes 0 Total Bilirubin 0.3 mg/dL (0.2-1.0) Aspartate Amino Transferase (AST) 13 U/L (13-40) Alanine Aminotransferase (ALT) < 9 U/L (7-40) Alkaline Phosphatase 64 U/L (46-116) Total Protein 6.6 g/dL (5.7-8.2) Albumin 3.4 g/dL (3.2-4.8) Test 12/19/24 06:25 12/19/24 05:08 12/19/24 04:44 Lactic Acid Level 1.1 mmol/L (0.4-2.0) Large Platelets Few Hemoglobin A1c 4.9 % A1C (<5.7) Troponin I High Sensitivity 9 ng/L (</=54) Lipase 33 U/L (12-53) Urine Color Yellow (Yellow) Urine Clarity Turbid (Clear) Urine pH 5.0 (5.0-9.0) Urine Specific [place] 1.016 (1.001-1.035) Urine Protein Trace (Negative) Urine Ketones Negative (Negative) Urine Blood 3+ /uL (Negative) Urine Nitrite Negative (Negative) Urine Bilirubin Negative (Negative) Urine Urobilinogen Normal mg/dL (Negative) Urine Leukocyte Esterase Negative /uL (Negative) Urine RBC 106 /hpf (0 - 3) Urine Microscopic WBC 8 /HPF (0-3) Urine Squamous Epithelial Cells Few /hpf (<5) Urine Bacteria Few /hpf (None Seen) Urine Hyaline Casts Few /lpf (0 - 2) Urine Mucus Few (None Seen) Urine Glucose Normal mg/dL (Normal) Other Laboratory Tests 12/26/24 07:18 12/24/24 05:41 Brief Hx & Hospital Course: see dictated note Condition at Discharge: Fair Final Diagnosis/Problems List cellulitis right foot Discharge Disposition: Group Home Facility Discharge Instruct/Medications Diet: Cardiac 2g Na,low cholest Activity: See Comment Follow Up/Referral: fu with pcp in [place] Medications: per oct Discharge Statement: "Patient was advised to return to the ER or call 911 if any headaches, dizziness, shortness of breath, chest pain, abdominal pain, bleeding, fevers, or worsening of medical condition. Patient was counseled about treatment plan, medications, possible side effects, patientverbalized understanding. All questions were answered to the best of my ability. This discharge took greater then 30 minutes in planning, reviewing documentation, counseling the patient, and discussing with other team members." ASSESSMENT ASSESSMENT Assessment cellulitis right foot Date of Service: December 26, 2024 Billing Provider: ERIKA BENITEZ MD Common Visit Codes: [id number] DISCH DAY >30min ERIKA BENITEZ MD December 26, 2024 10:42
[2024-12-26 12:33] VITALS: BP 126/57; PULSE 81; RESP 16; TEMP 97.6; O2SAT 100
[2024-12-26 16:36] VITALS: BP 155/75; PULSE 78; RESP 16; TEMP 97.3; O2SAT 100
--- NOTE | 2024-12-26 16:38 | DVHDS ---
DATE OF DISCHARGE: 12/26/2024 HISTORY OF PRESENT ILLNESS: The patient is a 69-year-old gentleman who was admitted with history of right foot pain and worsening wounds. The patient has history of hypertension, hyperlipidemia, peripheral vascular disease, recent right thigh debridement, recent right fifth toe amputation, and has history of drug abuse with heroin. HOSPITAL COURSE: The patient was seen by Dr. Bustamante. Foot CT showed soft tissue infection. A bone scan showed no evidence of osteomyelitis. The patient will now be discharged to a custodial facility with medications as per med reconciliation. He has been strongly advised to quit drug abuse. FINAL DIAGNOSES: * Right foot ulcer with cellulitis with sepsis. * History of necrotizing fasciitis of right thigh status post debridement. * Right fifth toe amputation. * Right femoral occlusion status post angioplasty and stent. * Drug abuse with heroin. * Diabetes mellitus. * Hypertension. * Hyperlipidemia. * Anemia. * Hepatitis C positive. Time spent in discharge planning and review of plan with the patient and nursing was 41 minutes. MD DEANGELO Kerns/[place] TID: [id number] RECEIPT: [id number]
[2024-12-26 21:00] VITALS: BP 154/76; PULSE 72; RESP 18; TEMP 97.9; O2SAT 100
[2024-12-27] VITALS (7 sets, daily range): BP systolic 138–158; BP diastolic 63–77; PULSE 61–86; RESP 17–20; TEMP 97.6–98.5; O2SAT 95–100
[2024-12-27 06:39] LABS: Basophils # (auto) 0 10 ^3/uL (0-0.2); Eosinophils # (auto) 0.2 10 ^3/uL (0-0.8); Eosinophils % (auto) 3.7 % (0.0-7.0); Lymphocytes # (auto) 2.3 10 ^3/uL (0.4-5.4); Mean Corpuscular Volume 72.3 fL (80.0-100.0); Monocytes # (auto) 0.7 10 ^3/uL (0-1.3); Nucleated Red Blood Cells % 0.1 %
[2024-12-27 06:43] LABS: Basophils % (auto) 0.5 % (0.0-2.0); Hematocrit 30.4 % (41.0-53.0); Hemoglobin 9.5 g/dL (13.5-17.5); Lymphocytes % (auto) 34.4 % (10.0-50.0); Mean Corpuscular Hemoglobin 22.6 pg (28.0-32.0); Mean Corpuscular Hgb Conc. 31.3 g/dL (32.0-36.0); Monocytes % (auto) 10.7 % (0.0-12.0); Neutrophils # (auto) 3.4 10 ^3/uL (1.6-8.6); Neutrophils % (auto) 50.7 % (37.0-80.0); Platelet Count (auto) 292 10^3/uL (140-450); Red Blood Cells 4.21 10^6/uL (4.5-5.90); White Blood Cell 6.7 10^3/uL (4.4-10.8)
[2024-12-27 07:37] LABS: Red Cell Distribution Width 25.7 % (11.8-14.3)
--- NOTE | 2024-12-27 12:32 | DVHPN2 ---
Subjective The patient seen and examined at bedside. No change overnight. Reviewed: Care Plan, H&P, Labs, Medications, Previous Orders, Radiology Changes from previous H/P or p: No Changes Musculoskeletal: foot pain Skin: Other (Discoloration right foot) Objective Vitals Vital Signs Date Time Temp Pulse Resp B/P (MAP) Pulse Ox O2 Delivery O2 Flow Rate FiO2 12/27/24 10:13 89 16 150/77 12/27/24 09:00 97.6 95 97.6 12/27/24 08:00 Room Air* 0 21 Intake/Output Intake and Output 12/27/24 07:00 Intake Total 1600 ml Output Total 1275 ml Balance 325 ml Intake Oral 1200 ml IV Total 400 ml Output Urine Total 1275 ml # Bowel Movements 2 General Appearance: Alert, Oriented X3, Cooperative, No acute distress Cardiovascular: Regular rate, Normal S1, Normal S2 Abdomen: Normal bowel sounds, Soft, No tenderness Extremities: No edema Medications Current Medications Medications Dose Ordered Sig/Anny Route Start Time Stop Time Status Last Admin Dose Admin Patient Own Medication 1 tab DAILY PO 12/19/24 10:00 UNV Patient Own Medication 1 tab HS PO 12/19/24 22:00 UNV Gabapentin 300 mg TID PO 12/19/24 14:00 12/27/24 06:03 300 MG Acetaminophen/ Hydrocodone Bitart 1 tab Q4HP PRN PO 12/19/24 10:45 12/25/24 09:21 1 TAB Ondansetron HCl 4 mg Q4HP PRN IV 12/19/24 10:45 Enoxaparin Sodium 30 mg DAILY SC 12/20/24 10:00 Cancel Acetaminophen 650 mg Q6HP PRN PO 12/19/24 10:45 Morphine Sulfate 2 mg Q4HPRN PRN IV 12/19/24 10:45 12/27/24 10:13 2 MG Vancomycin HCl 0 ml @ 0 mls/hr UD IV 12/19/24 10:45 Piperacillin Sod/ Tazobactam Sod 100 ml @ 25 mls/hr Q8HR IV 12/19/24 14:00 12/27/24 06:03 25 MLS/HR Diagnostic Test (Pha) 1 strip ACHS 12/19/24 11:30 12/27/24 11:35 1 STRIP Insulin Human Regular ACHS SC 12/19/24 11:30 12/26/24 21:57 2 UNITS Dextrose 50 ml UD PRN IV 12/19/24 10:45 Lisinopril 10 mg DAILY PO 12/20/24 10:00 12/27/24 10:03 10 MG Atorvastatin Calcium 80 mg HS PO 12/19/24 22:00 12/26/24 21:53 80 MG Enoxaparin Sodium 40 mg DAILY SC 12/20/24 10:00 12/27/24 10:03 40 MG Magnesium Oxide 800 mg DAILY PO 12/22/24 10:00 12/27/24 10:00 800 MG Duloxetine HCl 60 mg DAILY PO 12/25/24 10:00 12/27/24 10:02 60 MG Pantoprazole Sodium 40 mg DAILY PO 12/25/24 10:00 Cancel Vancomycin HCl 200 ml @ 200 mls/hr Q24H IV 12/25/24 12:00 12/27/24 11:56 200 MLS/HR Laboratory Results Laboratory Tests 12/24/24 05:41 12/27/24 05:59 Urinalysis Test 12/19/24 04:44 Urine Color Yellow (Yellow) Urine Clarity Turbid (Clear) H Urine pH 5.0 (5.0-9.0) Urine Specific [place] 1.016 (1.001-1.035) Urine Protein Trace (Negative) H Urine Ketones Negative (Negative) Urine Blood 3+ /uL (Negative) H Urine Nitrite Negative (Negative) Urine Bilirubin Negative (Negative) Urine Urobilinogen Normal mg/dL (Negative) Urine Leukocyte Esterase Negative /uL (Negative) Urine RBC 106 /hpf (0 - 3) Urine Microscopic WBC 8 /HPF (0-3) H Urine Squamous Epithelial Cells Few /hpf (<5) Urine Bacteria Few /hpf (None Seen) H Urine Hyaline Casts Few /lpf (0 - 2) Urine Mucus Few (None Seen) Urine Glucose Normal mg/dL (Normal) Microbiology Microbiology Date/Time Source Procedure Growth Status 12/21/24 14:00 Thigh Right Gram Stain - Final Complete 12/21/24 14:00 Thigh Right Wound Culture - Final Complete 12/19/24 06:25 Blood Blood Culture - Final NO GROWTH AFTER 5 DAYS OF INCUBATION. Complete Labs and/or images reviewed: Labs reviewed by me Assessment/Plan Assessment/Plan * right foot ulcer/ early gangrene with cellulitis with sepsis: iv antibiotics, bone scan today * s/p Necrotizing fasciitis with sepsis due to MRSA and enterococcus faecalis status post debridement. * Right foot toe gangrene, status post amputation. 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 * Drug abuse with heroin: continued use. * Diabetes mellitus: ssi * Hypertension. * Hyperlipidemia. * Anemia. * Hepatitis C positive. Waiting for transfer to [place]. Plan discussed with: Patient Date of Service: December 27, 2024 Billing Provider: ASHLEIGH DOW MD Common Visit Codes: [id number] INP/OBS CARE(HIGH) ASHLEIGH DOW MD December 27, 2024 12:32
[2024-12-28] VITALS (7 sets, daily range): BP systolic 132–157; BP diastolic 72–86; PULSE 69–81; RESP 17–19; TEMP 97.7–98.6; O2SAT 94–100
--- NOTE | 2024-12-28 13:47 | DVHPN2 ---
Subjective The patient seen and examined at bedside. No change overnight. Reviewed: Care Plan, H&P, Labs, Medications, Previous Orders, Radiology Changes from previous H/P or p: No Changes Musculoskeletal: foot pain Skin: Other (Discoloration right foot) Objective Vitals Vital Signs Date Time Temp Pulse Resp B/P (MAP) Pulse Ox O2 Delivery O2 Flow Rate FiO2 12/28/24 10:34 81 17 146/79 12/28/24 08:30 97.9 95 97.9 12/28/24 08:00 Room Air* 0 21 Intake/Output Intake and Output 12/28/24 07:00 Intake Total 1660 ml Output Total 1275 ml Balance 385 ml Intake Oral 1210 ml IV Total 450 ml Output Urine Total 1275 ml # Bowel Movements 2 General Appearance: Alert, Oriented X3, Cooperative, No acute distress Cardiovascular: Regular rate, Normal S1, Normal S2 Abdomen: Normal bowel sounds, Soft, No tenderness Extremities: No edema Medications Current Medications Medications Dose Ordered Sig/Anny Route Start Time Stop Time Status Last Admin Dose Admin Patient Own Medication 1 tab DAILY PO 12/19/24 10:00 UNV Patient Own Medication 1 tab HS PO 12/19/24 22:00 UNV Gabapentin 300 mg TID PO 12/19/24 14:00 12/28/24 05:19 300 MG Ondansetron HCl 4 mg Q4HP PRN IV 12/19/24 10:45 Enoxaparin Sodium 30 mg DAILY SC 12/20/24 10:00 Cancel Acetaminophen 650 mg Q6HP PRN PO 12/19/24 10:45 Vancomycin HCl 0 ml @ 0 mls/hr UD IV 12/19/24 10:45 Piperacillin Sod/ Tazobactam Sod 100 ml @ 25 mls/hr Q8HR IV 12/19/24 14:00 12/28/24 05:19 25 MLS/HR Diagnostic Test (Pha) 1 strip ACHS 12/19/24 11:30 12/28/24 11:48 1 STRIP Insulin Human Regular ACHS SC 12/19/24 11:30 12/27/24 21:43 3 UNITS Dextrose 50 ml UD PRN IV 12/19/24 10:45 Lisinopril 10 mg DAILY PO 12/20/24 10:00 12/28/24 10:02 10 MG Atorvastatin Calcium 80 mg HS PO 12/19/24 22:00 12/27/24 21:44 80 MG Enoxaparin Sodium 40 mg DAILY SC 12/20/24 10:00 12/28/24 10:02 40 MG Magnesium Oxide 800 mg DAILY PO 12/22/24 10:00 12/28/24 10:00 800 MG Duloxetine HCl 60 mg DAILY PO 12/25/24 10:00 12/28/24 10:01 60 MG Pantoprazole Sodium 40 mg DAILY PO 12/25/24 10:00 Cancel Vancomycin HCl 200 ml @ 200 mls/hr Q24H IV 12/25/24 12:00 12/28/24 11:37 200 MLS/HR Laboratory Results Laboratory Tests 12/24/24 05:41 12/27/24 05:59 12/28/24 06:41 Urinalysis Test 12/19/24 04:44 Urine Color Yellow (Yellow) Urine Clarity Turbid (Clear) H Urine pH 5.0 (5.0-9.0) Urine Specific [place] 1.016 (1.001-1.035) Urine Protein Trace (Negative) H Urine Ketones Negative (Negative) Urine Blood 3+ /uL (Negative) H Urine Nitrite Negative (Negative) Urine Bilirubin Negative (Negative) Urine Urobilinogen Normal mg/dL (Negative) Urine Leukocyte Esterase Negative /uL (Negative) Urine RBC 106 /hpf (0 - 3) Urine Microscopic WBC 8 /HPF (0-3) H Urine Squamous Epithelial Cells Few /hpf (<5) Urine Bacteria Few /hpf (None Seen) H Urine Hyaline Casts Few /lpf (0 - 2) Urine Mucus Few (None Seen) Urine Glucose Normal mg/dL (Normal) Microbiology Microbiology Date/Time Source Procedure Growth Status 12/21/24 14:00 Thigh Right Gram Stain - Final Complete 12/21/24 14:00 Thigh Right Wound Culture - Final Complete 12/19/24 06:25 Blood Blood Culture - Final NO GROWTH AFTER 5 DAYS OF INCUBATION. Complete Labs and/or images reviewed: Labs reviewed by me Assessment/Plan Assessment/Plan * right foot ulcer/ early gangrene with cellulitis with sepsis: iv antibiotics, bone scan today * s/p Necrotizing fasciitis with sepsis due to MRSA and enterococcus faecalis status post debridement. * Right foot toe gangrene, status post amputation. 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 * Drug abuse with heroin: continued use. * Diabetes mellitus: ssi * Hypertension. * Hyperlipidemia. * Anemia. * Hepatitis C positive. Transfer to [place] today. Plan discussed with: Patient Date of Service: December 28, 2024 Billing Provider: ASHLEIGH DOW MD Common Visit Codes: [id number] INP/OBS CARE(HIGH) ASHLEIGH DOW MD December 28, 2024 13:47
== END 2024-12-28 17:31 | DRG 871 ==
LOC: EDBD 03:59 → ER 03:59 → EDUNIT# 03:59 → OVERFLOW 10:36 → TELE-CENTR 22:08 → CENTRAL 12-23 11:21
PROVIDERS: ADMIT Internal Medicine; ATTEND Internal Medicine
DX: A41.9 Sepsis, unspecified organism (principal); J96.01 Acute respiratory failure with hypoxia; N17.0 Acute kidney failure with tubular necrosis; L03.115 Cellulitis of right lower limb; E87.1 Hypo-osmolality and hyponatremia; E11.621 Type 2 diabetes mellitus with foot ulcer; L97.519 Non-pressure chronic ulcer of other part of right foot with unspecified severity; E87.5 Hyperkalemia; D64.9 Anemia, unspecified; I10 Essential (primary) hypertension; E78.2 Mixed hyperlipidemia; F17.210 Nicotine dependence, cigarettes, uncomplicated; E11.42 Type 2 diabetes mellitus with diabetic polyneuropathy; B19.20 Unspecified viral hepatitis C without hepatic coma; F11.10 Opioid abuse, uncomplicated; Z79.84 Long term (current) use of oral hypoglycemic drugs; Z79.899 Other long term (current) drug therapy; Z89.421 Acquired absence of other right toe(s); Z87.39 Personal history of other diseases of the musculoskeletal system and connective tissue
CPT/HCPCS: 36415; 71045; 73620; 73700; 73718; 78315; 80048; 80053; 80202; 80307; 81001; 82565; 82962; 83036; 83605; 83690; 83735; 84484; 85007; 85025; 85027; 87040; 87081; 87205; 93005; 93970; 96365; 96366; 96367; 96375; 97110; 97116; 97162; 97530; G0378; J1815; J2543